=== PATIENT | male | born 1965 | race Caucasian/White ===

== ENCOUNTER 2020-10-05 11:35 | Inpatient (IN) | payer OTHER ==
[2020-10-05] MEDS ORDERED: SODIUM CHLORIDE 0.9% 1,000 ML with MVI, ADULT NO.4 WITH VIT K 10 ML, THIAMINE 100 MG, F... IV ONE ×4 (11:55)
--- NOTE | 2020-10-05 12:14 | XR ---
EXAMINATION TYPE: XR chest 2V DATE OF EXAM: 10/05/2020 COMPARISON: NONE TECHNIQUE: PA and lateral views submitted. HISTORY: Weakness FINDINGS: The lungs are clear and there is no pneumothorax, pleural effusion, or focal pneumonia. Arthropathy of the shoulders. Hyperinflation suggests COPD. No overt failure. Heart size normal. IMPRESSION: 1. No acute process. Correlate for COPD.
[2020-10-05 12:39] LABS: ALT 173 U/L (4-49); AST 483 U/L (17-59); African American GFR (CKD) >90 (>60 ml/min/1.73 sqM); Albumin 3.6 g/dL (3.5-5.0); Alkaline Phosphatase 137 U/L (38-126); Anion Gap 12 mmol/L; Blood Urea Nitrogen 6 mg/dL (9-20); Calcium 7.9 mg/dL (8.4-10.2); Carbon Dioxide 25 mmol/L (22-30); Chloride 105 mmol/L (98-107); Creatine Kinase 234 U/L (55-170); Glucose 116 mg/dL (74-99); Magnesium 1.7 mg/dL (1.6-2.3); Non-African American GFR(CKD) >90 (>60 ml/min/1.73 sqM); Potassium 4.2 mmol/L (3.5-5.1); Sodium 142 mmol/L (137-145); Total Bilirubin 0.9 mg/dL (0.2-1.3)
[2020-10-05 12:53] LABS: Alcohol 338 mg/dL
[2020-10-05 12:55] LABS: HCT 46.9 % (39.0-53.0); HGB 16.4 gm/dL (13.0-17.5); MCH 35.3 pg (25.0-35.0); MCHC 34.9 g/dL (31.0-37.0); Macrocytosis Slight; Mean Platelet Volume 7.1; RBC 4.65 m/uL (4.30-5.90); WBC 4.9 k/uL (3.8-10.6)
[2020-10-05 13:02] LABS: Lipase 6047 U/L (23-300)
--- NOTE | 2020-10-05 13:10 | ED ---
Alcohol HPI - General Chief Complaint: Alcohol Stated Complaint: ETOH Time Seen by Provider: 10/05/20 11:35 Source: patient, EMS, RN notes reviewed Mode of arrival: EMS - History of Present Illness Initial Comments: This is a 55-year-old male history of alcoholism was brought in by EMS today because of not eating or drinking for past several days he has been consuming alcohol however. So her between 1 pint and 150 day. He denies any prior history of alcohol a gastritis jaundice or other problems. He has been keeping food down and it has nausea some vomiting. He's also some diarrhea. No fevers chills sweats cough or phlegm production no other modifying factors MD Complaint: alcohol intoxication - Related Data Home Medications Medication Instructions Recorded Confirmed LORazepam [Ativan] 1 mg PO BID PRN 10/05/20 10/05/20 Allergies Allergy/AdvReac Type Severity Reaction Status Date / Time No Known Allergies Allergy Verified 10/05/20 12:16 Review of Systems ROS Statement: Those systems with pertinent positive or pertinent negative responses have been documented in the HPI. ROS Other: All systems not noted in ROS Statement are negative. Past Medical History History of Any Multi-Drug Resistant Organisms: None Reported Past Surgical History: Joint Replacement, Orthopedic Surgery Past Psychological History: No Psychological Hx Reported Smoking Status: Second hand smoke exposure Past Alcohol Use History: Abuse, Heavy Past Drug Use History: Cocaine, Marijuana General Exam - General Exam Comments Initial Comments: This a well-developed well-nourished awake alert oriented times 3 male General appearance: alert, in no apparent distress Head exam: Present: atraumatic, normocephalic, normal inspection Eye exam: Present: normal appearance, PERRL, EOMI. Absent: scleral icterus, conjunctival injection, periorbital swelling ENT exam: Present: mucous membranes dry Neck exam: Present: normal inspection, full ROM. Absent: tenderness, me ningismus, lymphadenopathy Respiratory exam: Present: normal lung sounds bilaterally. Absent: respiratory distress, wheezes, rales, rhonchi, stridor Cardiovascular Exam: Present: normal rhythm, tachycardia, normal heart sounds. Absent: systolic murmur, diastolic murmur, rubs, gallop, clicks GI/Abdominal exam: Present: soft, normal bowel sounds. Absent: distended, tenderness, guarding, rebound, rigid Extremities exam: Present: normal inspection, full ROM, normal capillary refill. Absent: tenderness, pedal edema, joint swelling, calf tenderness Back exam: Present: normal inspection Neurological exam: Present: alert, oriented X3, CN II-XII intact Psychiatric exam: Present: normal affect, normal mood Skin exam: Present: warm, dry, intact, normal color. Absent: rash Course Vital Signs 10/05/20 10/05/20 11:40 13:48 Temperature 98.3 F Pulse Rate 110 H 112 H Respiratory 18 18 Rate Blood Pressure 139/103 126/92 O2 Sat by Pulse 100 95 Oximetry Medical Decision Making - Medical Decision Making I did discuss findings with patient and with Dr. Pelayo the patient does d emonstrate evidence of acute alcohol intoxication as well as pancreatitis dehydration. The elevated lactic acid is likely secondary to dehydration has no infectious processes identified. She'll be admitted. - Lab Data Result diagrams: 10/05/20 12:00 10/05/20 12:00 Lab Results 10/05/20 10/05/20 10/05/20 Range/Units 12:00 12:00 12:00 WBC 4.9 (3.8-10.6) k/uL RBC 4.65 (4.30-5.90) m/uL Hgb 16.4 (13.0-17.5) gm/dL Hct 46.9 (39.0-53.0) % MCV 101.0 H (80.0-100.0) fL MCH 35.3 H (25.0-35.0) pg MCHC 34.9 (31.0-37.0) g/dL RDW 14.0 (11.5-15.5) % Plt Count 73 L (150-450) k/uL MPV 7.1 Neutrophils % (Manual) 62 % Lymphocytes % (Manual) 23 % Monocytes % (Manual) 15 % Neutrophils # (Manual) 3.04 (1.3-7.7) k/uL Lymphocytes # (Manual) 1.13 (1.0-4.8) k/uL Monocytes # (Manual) 0.74 (0-1.0) k/uL Nucleated RBCs 0 (0-0) /100 WBC Manual Slide Review Performed RBC Morphology Normal Macrocytosis Slight Sodium 142 (137-145) mmol/L Potassium 4.2 (3.5-5.1) mmol/L Chloride 105 (98-107) mmol/L Carbon Dioxide 25 (22-30) mmol/L Anion Gap 12 mmol/L BUN 6 L (9-20) mg/dL Creatinine 0.88 (0.66-1.25) mg/dL Est GFR (CKD-EPI)AfAm >90 (>60 ml/min/1.73 sqM) Est GFR (CKD-EPI)NonAf >90 (>60 ml/min/1.73 sqM) Glucose 116 H (74-99) mg/dL Plasma Lactic Acid Nawaf 3.0 H* (0.7-2.0) mmol/L Calcium 7.9 L (8.4-10.2) mg/dL Magnesium 1.7 (1.6-2.3) mg/dL Total Bilirubin 0.9 (0.2-1.3) mg/dL AST 483 H (17-59) U/L ALT 173 H (4-49) U/L Alkaline Phosphatase 137 H (38-126) U/L Ammonia <9 (<30) umol/L Creatine Kinase 234 H (55-170) U/L Total Protein 7.0 (6.3-8.2) g/dL Albumin 3.6 (3.5-5.0) g/dL Lipase 6047 H (23-300) U/L Serum Alcohol 338 H* mg/dL - EKG Data -: EKG Interpreted by Me EKG shows normal: sinus rhythm EKG Comments: Sinus tachycardia rate of 116. We'll 142 QRS duration 80 QT since QTC 348/483 - Radiology Data Radiology results: report reviewed (Imaging unremarkable), image reviewed Disposition Clinical Impression: Alcoholic intoxication, Acute pancreatitis, Dehydration, Tachycardia Disposition: ADMITTED IP TO THIS [facility] Condition: Fair Referrals: None,Stated [Primary Care Provider] - 1-2 days
[2020-10-05 13:18] LABS: Lymphocytes # (M) 1.13 k/uL (1.0-4.8); Monocytes # (M) 0.74 k/uL (0-1.0); Neutrophils # (M) 3.04 k/uL (1.3-7.7); Neutrophils % (M) 62 %; Nucleated Red Blood Cells 0 /100 WBC (0-0); Total Cells Counted 100
[2020-10-05 13:22] LABS: Platelet Count 73 k/uL (150-450)
[2020-10-05] MEDS ORDERED: ONDANSETRON 4 MG/2 ML VIAL IVP PRN ×2 (14:19→21:27)
[2020-10-05] MEDS ORDERED: NALOXONE 0.4 MG/ML 1 ML VIAL IV PRN (14:19)
[2020-10-05] MEDS ORDERED: SODIUM CHLORIDE 0.9% 1,000 ML IV STA (14:21)
[2020-10-05] MEDS ORDERED: LORazepam 2 MG/ML INJ IV PRN (14:21)
[2020-10-05] MEDS ORDERED: THIAMINE 100 MG/ML 2 ML VIAL IM STA (14:21)
[2020-10-05] MEDS: LORazepam 2 MG/ML INJ IV PRN ×4 (14:37→23:21)
[2020-10-05] MEDS: SODIUM CHLORIDE 0.9% 1,000 ML IV SCH (17:39)
[2020-10-05] MEDS: THIAMINE 100 MG TAB PO SCH (21:41)
--- NOTE | 2020-10-06 00:08 | P.HPIM ---
History of Present Illness H&P Date: 10/05/20 Chief Complaint: Acute alcohol intoxication Patient is a 55-year-old male with a known history of heavy alcohol abuse on daily basis, cocaine, marijuana use was brought to ER by EMS as he is not eating for the past several days and drinking alcohol on daily basis. Patient does drink 1 pint daily. Patient has been having nausea and few episodes of vomiting. Patient did have abdominal pain. No cough or sputum production. No fever no chills. Patient could not provide much history as the patient is intoxicated currently. Chest x-ray showed no acute process. Correlate for COPD. EKG showed sinus tachycardia. Laboratory data showed WBC 4.9, hemoglobin 16.4 MCV 101.0, platelets 73 Lactic acid 3.0, magnesium 1.7 calcium 7.9 AST 483 ALT 173 and alk phos 137 and lipase level is 6047 Serum alcohol level is 338 Review of Systems Complete review of systems could not be obtained from the patient. Currently he is intoxicated. Past Medical History History of Any Multi-Drug Resistant Organisms: None Reported Past Surgical History: Joint Replacement, Orthopedic Surgery Past Psychological History: No Psychological Hx Reported Smoking Status: Second hand smoke exposure Past Alcohol Use History: Abuse, Heavy Past Drug Use History: Cocaine, Marijuana Medications and Allergies Home Medications Medication Instructions Recorded Confirmed Type LORazepam [Ativan] 1 mg PO BID PRN 10/05/20 10/05/20 History Allergies Allergy/AdvReac Type Severity Reaction Status Date / Time No Known Allergies Allergy Verified 10/05/20 12:16 Physical Exam Vitals: Vital Signs Temp Pulse Resp BP Pulse Ox 10/05/20 14:30 94 16 135/98 96 10/05/20 14:00 18 126/92 97 10/05/20 13:51 99 18 126/92 94 L 10/05/20 13:48 112 H 18 126/92 95 10/05/20 11:40 98.3 F 110 H 18 139/103 100 Intake and Output 10/04/20 10/05/20 10/05/20 22:59 06:59 14:59 Other: Weight 74.843 kg PHYSICAL EXAMINATION: Patient is lying in the bed comfortably, no acute distress,.Patient is drowsy and lethargic.. HEENT: Normocephalic. Neck is supple. Pupils reactive. Nostrils clear. Oral cavity is moist. Ears reveal no drainage. Neck reveals no JVD, carotid bruits, or thyromegaly. CHEST EXAMINATION: Trachea is central. Symmetrical expansion. Lung carrillo clear to auscultation and percussion. CARDIAC: Normal S1, S2 with no gallops. No murmurs ABDOMEN: Soft. Bowel sounds normal. No organomegaly. No abdominal bruits. Extremities: reveal no edema. No clubbing or cyanosis Neurologically Patient is drowsy and lethargic.. No focal deficits noted Skin: No rash or skin lesions. Psychiatric: Coperative. Musculoskeletal: No joint swelling or deformity. Normal range of motion. Results CBC & Chem 7: 10/05/20 12:00 10/05/20 12:00 Labs: Abnormal Lab Results - Last 24 Hours (Table) 10/05/20 10/05/20 10/05/20 Range/Units 12:00 12:00 12:00 MCV 101.0 H (80.0-100.0) fL MCH 35.3 H (25.0-35.0) pg Plt Count 73 L (150-450) k/uL BUN 6 L (9-20) mg/dL Glucose 116 H (74-99) mg/dL Plasma Lactic Acid Nawaf 3.0 H* (0.7-2.0) mmol/L Calcium 7.9 L (8.4-10.2) mg/dL AST 483 H (17-59) U/L ALT 173 H (4-49) U/L Alkaline Phosphatase 137 H (38-126) U/L Creatine Kinase 234 H (55-170) U/L Lipase 6047 H (23-300) U/L Serum Alcohol 338 H* mg/dL Thrombosis Risk Factor Assmnt - DVT/VTE Prophylaxis DVT/VTE Prophylaxis: Pharmacologic Prophylaxis ordered Assessment and Plan Assessment: Acute alcohol intoxication with a level 338 Severe alcohol abuse Lactic acidosis secondary to dehydration and volume depletion Acute alcoholic hepatitis with elevated liver enzymes AST greater than ALT Acute pancreatitis with lipase level 6047 Macrocytosis and thrombocytopenia secondary to alcohol abuse Marijuana use and cocaine use DVT prophylaxis and GI prophylaxis. Plan: Patient will be continued on IV hydration with normal saline and nothing by mouth until abdominal pain improves.. Continue with pain management and GI and DVT prophylaxis. Further recommendations based on the clinical course. Continue with alcohol withdrawal protocol. Time with Patient: Greater than 30
[2020-10-06] MEDS: HEPARIN SODIUM,PORCINE 5,000 UNIT/ML 1 ML VIAL SQ SCH ×3 (01:14→16:47)
[2020-10-06] MEDS: SODIUM CHLORIDE 0.9% 1,000 ML IV SCH ×4 (01:14→19:37)
[2020-10-06 01:36] LABS: Amphetamine Screen,Urine Not Detected (NotDetected); Barbiturate Screen,Urine Not Detected (NotDetected); Benzodiazepines Screen,Urine Detected (NotDetected); Cocaine Screen,Urine Not Detected (NotDetected); Methadone Screen, Urine Not Detected (NotDetected); Opiate Screen,Urine Not Detected (NotDetected); Oxycodone Screen, Urine Not Detected (NotDetected); Phencyclidine Screen,Urine Not Detected (NotDetected); Tricyclic Antidepressant,Urine Not Detected (NotDetected); Urn Cannabinoid Scrn Not Detected (NotDetected)
[2020-10-06] MEDS: LORazepam 2 MG/ML INJ IV PRN ×9 (02:12→21:48)
[2020-10-06 02:30] LABS: HCT 41.3 % (39.0-53.0); HGB 14.3 gm/dL (13.0-17.5); MCH 35.4 pg (25.0-35.0); MCHC 34.7 g/dL (31.0-37.0); MCV 102.1 fL (80.0-100.0); Macrocytosis Slight; Mean Platelet Volume 7.6; RBC 4.05 m/uL (4.30-5.90); RDW 14.1 % (11.5-15.5); WBC 2.7 k/uL (3.8-10.6)
[2020-10-06 02:40] LABS: Platelet Count 49 k/uL (150-450)
[2020-10-06 02:43] LABS: ALT 143 U/L (4-49); AST 335 U/L (17-59); African American GFR (CKD) >90 (>60 ml/min/1.73 sqM); Albumin 3.1 g/dL (3.5-5.0); Alkaline Phosphatase 111 U/L (38-126); Anion Gap 4 mmol/L; Blood Urea Nitrogen 5 mg/dL (9-20); Calcium 8.1 mg/dL (8.4-10.2); Carbon Dioxide 29 mmol/L (22-30); Chloride 104 mmol/L (98-107); Glucose 79 mg/dL (74-99); Lipase 1344 U/L (23-300); Non-African American GFR(CKD) >90 (>60 ml/min/1.73 sqM); Potassium 4.1 mmol/L (3.5-5.1); Sodium 137 mmol/L (137-145); Total Bilirubin 1.6 mg/dL (0.2-1.3); Total Protein 6.1 g/dL (6.3-8.2)
[2020-10-06 03:16] LABS: Band Neutrophils % 1 %; Basophils # (M) 0.03 k/uL (0-0.2); Lymphocytes # (M) 0.46 k/uL (1.0-4.8); Monocytes # (M) 0.24 k/uL (0-1.0); Neutrophils % (M) 72 %; Nucleated Red Blood Cells 0 /100 WBC (0-0); Total Cells Counted 100
[2020-10-06] MEDS: THIAMINE 100 MG TAB PO SCH ×2 (07:22→16:47)
[2020-10-06] MEDS: PANTOPRAZOLE 40 MG/10 ML VIAL IV SCH (07:22)
[2020-10-06 15:36] VITALS: BMI 22.4
[2020-10-06] MEDS ORDERED: LORazepam 2 MG/ML INJ IV STA (23:04)
[2020-10-06 23:21] LABS: HCT 34.4 % (39.0-53.0); MCH 37.7 pg (25.0-35.0); MCHC 34.8 g/dL (31.0-37.0); Macrocytosis Marked; Mean Platelet Volume 13.4; RBC 3.17 m/uL (4.30-5.90); RDW 14.5 % (11.5-15.5); WBC 2.8 k/uL (3.8-10.6)
[2020-10-06 23:26] LABS: MCV 108.4 fL (80.0-100.0)
[2020-10-06 23:46] LABS: INR 1.2 (<1.2); Prothrombin Time 12.8 sec (9.0-12.0)
[2020-10-06 23:49] LABS: Band Neutrophils % 1 %; Monocytes # (M) 0.17 k/uL (0-1.0); Neutrophils % (M) 75 %; Nucleated Red Blood Cells 0 /100 WBC (0-0); Total Cells Counted 100
[2020-10-06 23:57] LABS: Glucose,Whole Blood 101 mg/dL (75-99)
--- NOTE | 2020-10-06 23:58 | CT ---
EXAMINATION TYPE: CT brain without contrast DATE OF EXAM: 10/06/2020 COMPARISON: None HISTORY: Fall. Pain. Altered mental status CT DLP: mGycm Automated exposure control for dose reduction was used. Images were obtained without contrast. There is some cerebral cortical atrophy. There is no mass effect nor midline shift. There is no sign of intracranial hemorrhage. The calvarium is intact. There is normal aeration of the mastoid sinuses. Skull base is intact. IMPRESSION: Cerebral atrophy. No acute intracranial abnormality.
--- NOTE | 2020-10-07 00:03 | P.EN ---
A team note Activated at 10:37 PM. Arrived in the scene shortly after. The patient was laying on the ground. Discussed the case with RN at the bedside and reviewed the chart. The patient was admitted to the medicine service for EtOH withdrawal and pancreatitis. He had reportedly gotten up out of the bed, unwitnessed, and had walked to the restroom where he had a large tarry black bowel movement. The patient notes that he then felt dizzy as he tried to walk back to his bed and fell onto his side. Denied head trauma. Denied loss of consciousness. The patient's vital signs upon examination were: BP 82/51, pulse 154, and SpO2 98% on room air. The patient noted feeling shaky with nausea though denied additional complaints. The patient's toilet bowl was filled with black tarry stools. Patient denied episodes of vomiting. Reported a previous history of GI bleeding though could not recall if he was diagnosed with varices. EKG at the bedside revealed sinus tachycardia. General: Tremulous male, in no acute distress, appears stated age, normal weight HEENT: NC/AT, anicteric sclerae, moist conjunctiva, no lid-lag, PERRLA Cardiovascular: Tachycardic, no murmurs, rubs, or gallops Lungs: Clear to auscultation, normal respiratory effort, no accessory muscle use Abdominal: Soft, non-tender, non-distended, hepatomegaly noted, no guarding, rebound, or rigidity Skin: Warm, dry Extremities: No edema or contractures Psychiatric: Alert and oriented to person, place and time, appropriate affect Neuro: CN II-XII grossly intact, no focal neuro deficits noted, tongue fasciculations and outstretched hand tremor Assessment/plan Fall, suspected orthostatic in setting of acute GI bleeding -Status post 1 L normal saline bolus at the bedside. Continue with IV fluid hydration -Blood work ordered -Stat GI consult -Strict bedrest with fall precautions -Cardiac monitoring -CT brain ordered -Transfer patient to medical ICU -Primary team notified, agreed with transfer to ICU -Continue with Protonix IV -Sinus tachycardia suspected secondary to EtOH withdrawal and acute GI bleeding
[2020-10-07 00:05] LABS: ALT 98 U/L (4-49); AST 146 U/L (17-59); African American GFR (CKD) 74 (>60 ml/min/1.73 sqM); Albumin 2.6 g/dL (3.5-5.0); Alkaline Phosphatase 82 U/L (38-126); Anion Gap 11 mmol/L; Blood Urea Nitrogen 30 mg/dL (9-20); Calcium 8.2 mg/dL (8.4-10.2); Carbon Dioxide 20 mmol/L (22-30); Chloride 106 mmol/L (98-107); Globulin 2.7 g/dL; Glucose 121 mg/dL (74-99); Magnesium 1.3 mg/dL (1.6-2.3); Non-African American GFR(CKD) 64 (>60 ml/min/1.73 sqM); Potassium 4.2 mmol/L (3.5-5.1); Sodium 137 mmol/L (137-145); Total Bilirubin 1.9 mg/dL (0.2-1.3); Total Protein 5.3 g/dL (6.3-8.2)
[2020-10-07] MEDS: LORazepam 2 MG/ML INJ IV PRN ×8 (00:13→20:33)
[2020-10-07] MEDS: MAGNESIUM SULFATE-D5W PMX 1 GM in DEXTROSE/WATER 1 100ML.BAG IVPB SCH ×3 (01:21→03:43)
[2020-10-07 05:09] LABS: HCT 31.6 % (39.0-53.0); MCH 35.9 pg (25.0-35.0); MCHC 34.9 g/dL (31.0-37.0); Macrocytosis Slight; Mean Platelet Volume 8.2; RBC 3.07 m/uL (4.30-5.90); RDW 13.9 % (11.5-15.5); WBC 4.6 k/uL (3.8-10.6)
[2020-10-07 05:18] LABS: African American GFR (CKD) >90 (>60 ml/min/1.73 sqM); Anion Gap 5 mmol/L; Blood Urea Nitrogen 31 mg/dL (9-20); Carbon Dioxide 22 mmol/L (22-30); Chloride 109 mmol/L (98-107); Glucose 87 mg/dL (74-99); Non-African American GFR(CKD) >90 (>60 ml/min/1.73 sqM); Potassium 4.4 mmol/L (3.5-5.1); Sodium 136 mmol/L (137-145)
[2020-10-07 05:19] LABS: MCV 102.8 fL (80.0-100.0); Platelet Count 79 k/uL (150-450)
[2020-10-07 06:24] LABS: Lymphocytes # (M) 0.83 k/uL (1.0-4.8); Monocytes # (M) 0.92 k/uL (0-1.0); Neutrophils # (M) 2.85 k/uL (1.3-7.7); Neutrophils % (M) 62 %; Nucleated Red Blood Cells 0 /100 WBC (0-0); Total Cells Counted 100
[2020-10-07] MEDS: SODIUM CHLORIDE 0.9% 1,000 ML IV SCH (07:04)
--- NOTE | 2020-10-07 07:22 | CT ---
EXAMINATION TYPE: CT abdomen pelvis wo con DATE OF EXAM: 10/06/2020 COMPARISON: None HISTORY: found on floor after fall. Pain. AMS. no prior on PACS. CT DLP: 639.6 mGycm Automated exposure control for dose reduction was used. TECHNIQUE: Helical acquisition of images from the lung bases through the pelvis. FINDINGS: Lack of intravenous contrast could compromise sensitivity. LUNG BASES: No significant abnormality is appreciated. AORTA: No significant abnormality is appreciated. LIVER/GB: Liver shows low attenuation, is enlarged. Gallbladder is normal. PANCREAS: No significant abnormality is seen. SPLEEN: No significant abnormality is seen. ADRENALS: No significant abnormality is seen. KIDNEYS: Right kidney is atrophic. Left kidney is enlarged. REPRODUCTIVE ORGANS: No significant abnormality is seen. URINARY BLADDER: No significant abnormality is seen. BOWEL: No significant abnormality is seen. FREE AIR: No Free Air is visible. ASCITES: None visible. PELVIC ADENOPATHY: None visualized. RETROPERITONEAL ADENOPATHY: No Retroperitoneal Adenopathy visible. OSSEOUS STRUCTURES: Bilateral spondylolysis at L5 with anterolisthesis L5-S1. Loss of disc height L4 -5 and L5-S1, is associated vacuum phenomenon. Multilevel spondylosis is present.. IMPRESSION: NO ACUTE ABNORMALITY. NONCONTRAST EXAM. HEPATOMEGALY, HEPATIC STEATOSIS. ATROPHIC RIGHT KIDNEY WITH C OMPENSATORY HYPERTROPHY LEFT KIDNEY.
[2020-10-07] MEDS: THIAMINE 100 MG TAB PO SCH ×2 (08:11→19:40)
[2020-10-07] MEDS: PANTOPRAZOLE 40 MG/10 ML VIAL IV SCH (08:11)
[2020-10-07] MEDS ORDERED: SODIUM CHLORIDE 0.9% 1,000 ML with MVI, ADULT NO.4 WITH VIT K 10 ML, THIAMINE 100 MG, F... IV ONE ×4 (08:25)
[2020-10-07] MEDS ORDERED: DEXTROSE 5%-0.9% NACL 1,000 ML IV SCH (08:30)
--- NOTE | 2020-10-07 09:57 | P.PN ---
Subjective Progress Note Date: 10/06/20 Principal diagnosis: Acute alcohol intoxication Acute pancreatitis Patient is a 55-year-old male with a known history of heavy alcohol abuse on daily basis, cocaine, marijuana use was brought to ER by EMS as he is not eating for the past several days and drinking alcohol on daily basis. Patient does drink 1 pint daily. Patient has been having nausea and few episodes of vomi ting. Patient did have abdominal pain. No cough or sputum production. No fever no chills. Patient could not provide much history as the patient is intoxicated currently. Chest x-ray showed no acute process. Correlate for COPD. EKG showed sinus tachycardia. Laboratory data showed WBC 4.9, hemoglobin 16.4 MCV 101.0, platelets 73 Lactic acid 3.0, magnesium 1.7 calcium 7.9 AST 483 ALT 173 and alk phos 137 and lipase level is 6047 Serum alcohol level is 338 10/06/2020 Patient is currently resting in the bed comfortably. Abdominal pain is better. Tolerating liquid diet. Living and subtending down. Otherwise patient is still shaky and requiring alcohol withdrawal protocol. Continue with multivitamins and thiamine and advance diet as tolerated. Patient denied any complains of chest pain. No nausea vomiting or diarrhea. No dysuria or hematuria. Patient has been afebrile. current medications reviewed. Objective - Vital Signs Vital signs: Vital Signs Temp 97.6 F 10/06/20 14:00 Pulse 106 H 10/06/20 14:00 Resp 16 10/06/20 14:00 BP 140/90 10/06/20 14:00 Pulse Ox 98 10/06/20 14:00 Intake & Output 10/05/20 10/06/20 10/06/20 18:59 06:59 18:59 Weight 74.843 kg 74.843 kg 74.843 kg Other: # Voids 3 - Exam PHYSICAL EXAMINATION: Patient is lying in the bed comfortably, no acute distress, awake alert and oriented. Drowsy.. HEENT: Normocephalic. Neck is supple. Pupils reactive. Nostrils clear. Oral cavity is moist. Ears reveal no drainage. Neck reveals no JVD, carotid bruits, or thyromegaly. CHEST EXAMINATION: Trachea is central. Symmetrical expansion. Lung carrillo clear to auscultation and percussion. CARDIAC: Normal S1, S2 with no gallops. No murmurs ABDOMEN: Soft. Mild epigastric tenderness. Bowel sounds normal. No organomeg jenise. No abdominal bruits. Extremities: reveal no edema. No clubbing or cyanosis Neurologically awake, alert, oriented x3 with well-coordinated movements. No focal deficits noted Skin: No rash or skin lesions. Psychiatric: Coperative. Nonsuicidal Musculoskeletal: No joint swelling or deformity. Normal range of motion. - Labs CBC & Chem 7: 10/07/20 04:33 10/07/20 04:33 Labs: Abnormal Lab Results - Last 24 Hours (Table) 10/05/20 10/05/20 10/05/20 Range/Units 17:34 20:39 23:08 WBC (3.8-10.6) k/uL RBC (4.30-5.90) m/uL MCV (80.0-100.0) fL MCH (25.0-35.0) pg Plt Count (150-450) k/uL Lymphocytes # (Manual) (1.0-4.8) k/uL BUN (9-20) mg/dL Plasma Lactic Acid Nawaf 4.2 H* 2.2 H* 3.0 H* (0.7-2.0) mmol/L Calcium (8.4-10.2) mg/dL Total Bilirubin (0.2-1.3) mg/dL AST (17-59) U/L ALT (4-49) U/L Total Protein (6.3-8.2) g/dL Albumin (3.5-5.0) g/dL Lipase (23-300) U/L U Benzodiazepines Scrn (NotDetected) 10/06/20 10/06/20 10/06/20 Range/Units 01:23 02:10 02:10 WBC 2.7 L (3.8-10.6) k/uL RBC 4.05 L (4.30-5.90) m/uL MCV 102.1 H (80.0-100.0) fL MCH 35.4 H (25.0-35.0) pg Plt Count 49 L (150-450) k/uL Lymphocytes # (Manual) 0.46 L (1.0-4.8) k/uL BUN 5 L (9-20) mg/dL Plasma Lactic Acid Nawaf (0.7-2.0) mmol/L Calcium 8.1 L (8.4-10.2) mg/dL Total Bilirubin 1.6 H (0.2-1.3) mg/dL AST 335 H (17-59) U/L ALT 143 H (4-49) U/L Total Protein 6.1 L (6.3-8.2) g/dL Albumin 3.1 L (3.5-5.0) g/dL Lipase 1344 H (23-300) U/L U Benzodiazepines Scrn Detected H (NotDetected) Assessment and Plan Assessment: Acute alcohol intoxication with a level 338 Acute alcohol withdrawal symptoms Severe alcohol abuse Lactic acidosis secondary to dehydration and volume depletion Acute alcoholic hepatitis with elevated liver enzymes AST greater than ALT Acute pancreatitis with lipase level 6047 Macrocytosis and thrombocytopenia secondary to alcohol abuse Marijuana use and cocaine use DVT prophylaxis and GI prophylaxis. Plan: Patient will be continued on IV hydration with normal saline and advance diet as tolerated.. Continue with pain management and GI and DVT prophylaxis. Further recommendations based on the clinical course. Continue with alcohol withdrawal protocol. Time with Patient: Greater than 30
[2020-10-07] MEDS: 1: MVI, ADULT NO.4 WITH VIT K 10 ML, THIAMINE 100 MG, FOLIC ACID 1 MG in SODIUM CHLORIDE IV SCH ×2 (10:20→20:30)
--- NOTE | 2020-10-07 12:22 | P.CNPUL ---
History of Present Illness Consult date: 10/07/20 Requesting physician: Mica Richardson Reason for consult: other Chief complaint: Dehydration, pancreatitis, alcohol withdrawal syndrome. History of present illness: 55-year-old male, heavy alcohol abuser, who presented to the emergency room, via EMS, on October 05. He apparently had not been eating or drinking very much at all. He does continue to consume 1 pint of 5 Or whiskey a day. 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 He was admitted to the general medical floor on the , and on the , he came to the ICU. He apparently fell, trying to get out of bed, and was noted to have a low blood pressure, and possible gastrointestinal bleed. Currently, he's not receiving any supplemental oxygen. He is getting saline at 130 mL an hour. He did not require any pressors such as norepinephrine. The patient will be given fluids in the form of D5 0.9, with thiamine. Quite shaky. He does understand what he is going to. His only home medication with Ativan and he has no ALLERGIES. He apparently has no major medical problems. He has used cocaine and marijuana in the past, and apparently is a heavy drinker as mentioned above. He currently does not smoke cigarettes. Review of Systems REVIEW OF SYSTEMS: CONSTITUTIONAL: Weak, shaky.] NEUROLOGIC: Tremors.] HEENT: [ Negative.] CARDIAC: Hypotension. PULMONARY: [Negative.] GI: GI bleed. : [Negative.] RHEUMATOLOGIC: [ Negative.] IMMUNOLOGIC: [ Negative.] ENDOCRINE: [Negative. ] DERMATOLOGIC: [Negative.] Past Medical History Past Medical History: Seizure Disorder History of Any Multi-Drug Resistant Organisms: None Reported Past Surgical History: Joint Replacement, Orthopedic Surgery Past Anesthesia/Blood Transfusion Reactions: No Reported Reaction Past Psychological History: No Psychological Hx Reported Smoking Status: Second hand smoke exposure Past Alcohol Use History: Abuse, Heavy Past Drug Use History: Cocaine, Marijuana Medications and Allergies Home Medications Medication Instructions Recorded Confirmed Type LORazepam [Ativan] 1 mg PO BID PRN 10/05/20 10/05/20 History Allergies Allergy/AdvReac Type Severity Reaction Status Date / Time No Known Allergies Allergy Verified 10/05/20 12:16 Physical Exam Osteopathic Statement: *. No significant issues noted on an osteopathic structural exam other than those noted in the History and Physical/Consult. Vitals: Vital Signs Temp Pulse Pulse Resp BP BP Pulse Ox 10/07/20 10:30 144 H 18 121/92 95 10/07/20 10:00 140 H 27 H 99/70 93 L 10/07/20 09:30 129 H 22 107/78 97 10/07/20 09:00 135 H 23 111/91 96 10/07/20 08:30 142 H 25 H 105/84 99 10/07/20 08:00 98.3 F 135 H 154 H 18 93/83 96 10/07/20 07:30 138 H 18 85/60 10/07/20 07:00 128 H 26 H 113/77 97 10/07/20 06:30 134 H 20 118/79 95 10/07/20 06:00 16 110/88 97 10/07/20 05:30 147 H 24 86/71 99 10/07/20 05:00 135 H 22 92/67 99 10/07/20 04:30 141 H 22 128/110 98 10/07/20 04:00 98 F 163 H 26 H 93/65 100 10/07/20 03:30 112 H 20 142/56 97 10/07/20 03:00 144 H 17 113/80 100 10/07/20 02:30 27 H 92/66 97 10/07/20 02:00 147 H 24 88/65 95 10/07/20 01:30 152 H 30 H 107/92 95 10/07/20 01:00 144 H 24 94/60 95 10/07/20 00:30 146 H 13 96/63 92 L 10/07/20 00:00 98.8 F 149 H 27 H 117/78 95 10/06/20 23:02 154 H 82/51 98 10/06/20 22:53 156 H 76/52 97 10/06/20 19:15 18 10/06/20 18:53 98.5 F 105 H 18 111/80 98 10/06/20 14:00 97.6 F 106 H 16 140/90 98 Intake and Output 10/06/20 10/07/20 10/07/20 22:59 06:59 14:59 Intake Total 2660 520 Balance 2660 520 Intake: IV 2000 0.9 bolus 2000 Intake, IV Titration 660 520 Amount Dextrose 5%-0.9% NaCl 1, 130 000 ml @ 130 mls/hr IV . Q7H42M [facility] Rx#:[id number] Magnesium Sulfate-D5w Pmx 300 1 gm In Dextrose/Water 1 100ml.bag @ 100 mls/hr IVPB Q1H [facility] Rx#: [id number] Mvi, Adult No.4 with Vit 130 K 10 ml Thiamine 100 mg Folic Acid 1 mg In Sodium Chloride 0.9% 1,000 ml @ 130 mls/hr IV .BY DURATION [facility] Rx#: [id number] Sodium Chloride 0.9% 1, 360 260 000 ml @ 130 mls/hr IV . Q7H42M [facility] Rx#:[id number] Other: Voiding Method Toilet Urinal Urinal Diaper Diaper # Voids 5 1 1 # Bowel Movements 1 1 Weight 74.843 kg 77.1 kg No acute distress, oriented 3. The patient appears quite anxious. HEENT examination is grossly unremarkable. Mucous membranes are moist. No oral lesions. Neck supple. Full range of motion. No adenopathy thyromegaly or neck vein distention. Cardiovascular examination reveals regular rhythm rate. S1-S2 normal. No S3 or S4. No discernible murmur noted. Heart rate is 144 bpm. Lungs reveal clear breath sounds. Her sounds are equal bilaterally. No adventitious lung sounds including wheezes rhonchi or crackles. Abdomen soft bowel sounds are heard. No masses or tenderness. Extremities are intact. No cyanosis clubbing or edema. Skin is without rash or lesion. Neurologic examination is brief but nonfocal. A slight tremor is noted. Results - Laboratory Findings CBC and BMP: 10/07/20 04:33 10/07/20 04:33 PT/INR, D-dimer PT 12.8 sec (9.0-12.0) H 10/06/20 23:30 INR 1.2 (<1.2) H 10/06/20 23:30 Abnormal lab findings: Abnormal Labs 10/05/20 10/05/20 10/05/20 12:00 12:00 12:00 WBC RBC Hgb Hct MCV 101.0 H MCH 35.3 H Plt Count 73 L Lymphocytes # (Manual) Macrocytosis PT INR Sodium Chloride Carbon Dioxide BUN 6 L Creatinine Glucose 116 H POC Glucose (mg/dL) Plasma Lactic Acid Nawaf 3.0 H* Calcium 7.9 L Magnesium Total Bilirubin AST 483 H ALT 173 H Alkaline Phosphatase 137 H Creatine Kinase 234 H Total Protein Albumin Lipase 6047 H U Benzodiazepines Scrn Serum Alcohol 338 H* 10/05/20 10/05/20 10/05/20 15:00 17:34 20:39 WBC RBC Hgb Hct MCV MCH Plt Count Lymphocytes # (Manual) Macrocytosis PT INR Sodium Chloride Carbon Dioxide BUN Creatinine Glucose POC Glucose (mg/dL) Plasma Lactic Acid Nawaf 2.8 H* 4.2 H* 2.2 H* Calcium Magnesium Total Bilirubin AST ALT Alkaline Phosphatase Creatine Kinase Total Protein Albumin Lipase U Benzodiazepines Scrn Serum Alcohol 10/05/20 10/06/20 10/06/20 23:08 01:23 02:10 WBC 2.7 L RBC 4.05 L Hgb Hct MCV 102.1 H MCH 35.4 H Plt Count 49 L Lymphocytes # (Manual) 0.46 L Macrocytosis PT INR Sodium Chloride Carbon Dioxide BUN Creatinine Glucose POC Glucose (mg/dL) Plasma Lactic Acid Nawaf 3.0 H* Calcium Magnesium Total Bilirubin AST ALT Alkaline Phosphatase Creatine Kinase Total Protein Albumin Lipase U Benzodiazepines Scrn Detected H Serum Alcohol 10/06/20 10/06/20 10/06/20 02:10 23:15 23:30 WBC 2.8 L RBC 3.17 L Hgb 12.0 L Hct 34.4 L MCV 108.4 H D MCH 37.7 H Plt Count Lymphocytes # (Manual) 0.50 L Macrocytosis Marked A PT 12.8 H INR 1.2 H Sodium Chloride Carbon Dioxide BUN 5 L Creatinine Glucose POC Glucose (mg/dL) Plasma Lactic Acid Nawaf Calcium 8.1 L Magnesium Total Bilirubin 1.6 H AST 335 H ALT 143 H Alkaline Phosphatase Creatine Kinase Total Protein 6.1 L Albumin 3.1 L Lipase 1344 H U Benzodiazepines Scrn Serum Alcohol 10/06/20 10/06/20 10/06/20 23:30 23:30 23:55 WBC RBC Hgb Hct MCV MCH Plt Count Lymphocytes # (Manual) Macrocytosis PT INR Sodium Chloride Carbon Dioxide 20 L BUN 30 H Creatinine 1.27 H Glucose 121 H POC Glucose (mg/dL) 101 H Plasma Lactic Acid Nawaf 2.2 H* Calcium 8.2 L Magnesium 1.3 L Total Bilirubin 1.9 H AST 146 H ALT 98 H Alkaline Phosphatase Creatine Kinase Total Protein 5.3 L Albumin 2.6 L Lipase U Benzodiazepines Scrn Serum Alcohol 10/07/20 10/07/20 04:33 04:33 WBC RBC 3.07 L Hgb 11.0 L Hct 31.6 L MCV 102.8 H D MCH 35.9 H Plt Count 79 L D Lymphocytes # (Manual) 0.83 L Macrocytosis PT INR Sodium 136 L Chloride 109 H Carbon Dioxide BUN 31 H Creatinine Glucose POC Glucose (mg/dL) Plasma Lactic Acid Nawaf Calcium 8.0 L Magnesium Total Bilirubin AST ALT Alkaline Phosphatase Creatine Kinase Total Protein Albumin Lipase U Benzodiazepines Scrn Serum Alcohol - Diagnostic Findings Chest x-ray: image reviewed Assessment and Plan Assessment: Alcohol withdrawal syndrome in a patient who has a history of alcohol abuse. Alcoholic pancreatitis. Possible GI bleed, secondary to alcoholic gastritis or esophagitis. Recent fall, with negative brain scan. Lactic acidosis, improved. Mild hyperbilirubinemia. Mild alcohol-induced coagulopathy. Prerenal azotemia. Chronic anemia. Thrombocytopenia, secondary to alcohol-induced bone marrow suppression. Hypotension, resolved, with IV fluids. Plan: Plan dated 10/07/2020. The patient's IV will be switched to D5.9 with thiamine, at 130 mL an hour. The patient will continue getting Ativan per [facility] protocol. The only other medication the patient is on his thiamine, Protonix, and Zofran. Some of those medications are only given as needed. Continue to keep him in the intensive care unit. We will continue to monitor his blood work and observe him to the episode of alcohol withdrawal. I suspect he will develop full-blown delirium tremens. Additional recommendations and suggestions are forthcoming. Prognosis is guarded. Time with Patient: Greater than 30
--- NOTE | 2020-10-07 13:47 | P.CONS ---
History of Present Illness - Reason for Consult Consult date: 10/07/20 GI bleed Requesting physician: Devyn Pelayo - Chief Complaint Decreased oral intake - History of Present Illness 55-year-old male with a history of heavy alcohol abuse, and polysubstance abuse who presented to the hospital due to decreased oral intake. The patient was found to have markedly elevated lipase on presentation and 6047 and has complained of some abdominal pain with associated nausea and vomiting. Currently reporting abdominal pain is improved. He was found to be intoxicated on presentation with a level of 338. Other laboratory evaluation significant for WBC 4.6, hemoglobin 11, platelet count 79,000, total bilirubin 1.9, pleasant phosphatase 82, AST 146 and ALT 98. Computed tomography scan was significant for hepatomegaly and steatosis. Patient was sent to the medical floor for treatment of acute pancreatitis and alcohol intoxication. During the night the patient was found on the floor. There are concerns that the patient had passed out and the patient was subsequently noted to have bright red blood per rectum. He was brought to the ICU where he is being managed. Since that time bowel movements have been maroon and dark in color. He is receiving treatment for alcohol withdrawal. He reports a remote history of gastrointestinal bleed and states he has required EGD and colonoscopy in the past while in [place] but is unclear about the details around these procedures. Review of Systems REVIEW OF SYSTEMS: CONSTITUTIONAL: Denies any fevers, chills, weight change or fatigue. CARDIOVASCULAR: Denies any chest pain, palpitations high or low blood pressures RESPIRATORY: Denies any shortness of breath, hemoptysis or cough. GENITOURINARY: No dysuria or hematuria. MUSCULOSKELETAL: No weakness reported. SKIN: Denies any new rashes or lesions, jaundice or pallor. PSYCHIATRIC: Denies any depression or anxiety, polysubstance abuse, alcohol abuse. NEUROLOGY: Denies headache, denies any new focal deficits. EARS/NOSE/THROAT: No recent hearing change, congestion, nasal discharge or sore throat. EYES: No pain in eyes, discharge or change in vision. GASTROINTESTINAL: As per HPI. Past Medical History Past Medical History: Seizure Disorder History of Any Multi-Drug Resistant Organisms: None Reported Past Surgical History: Joint Replacement, Orthopedic Surgery Past Anesthesia/Blood Transfusion Reactions: No Reported Reaction Past Psychological History: No Psychological Hx Reported Smoking Status: Second hand smoke exposure Past Alcohol Use History: Abuse, Heavy Past Drug Use History: Cocaine, Marijuana Additional History: Family history: Reviewed with the patient and noncontributory to current medical presentation. Medications and Allergies Home Medications Medication Instructions Recorded Confirmed Type LORazepam [Ativan] 1 mg PO BID PRN 10/05/20 10/05/20 History Allergies Allergy/AdvReac Type Severity Reaction Status Date / Time No Known Allergies Allergy Verified 10/05/20 12:16 Physical Exam Vitals: Vital Signs Temp Pulse Pulse Resp BP BP Pulse Ox 10/07/20 09:00 135 H 23 111/91 96 10/07/20 08:30 142 H 25 H 105/84 99 10/07/20 08:00 98.3 F 135 H 154 H 18 93/83 96 10/07/20 07:30 138 H 18 85/60 10/07/20 07:00 128 H 26 H 113/77 97 10/07/20 06:30 134 H 20 118/79 95 10/07/20 06:00 16 110/88 97 10/07/20 05:30 147 H 24 86/71 99 10/07/20 05:00 135 H 22 92/67 99 10/07/20 04:30 141 H 22 128/110 98 10/07/20 04:00 98 F 163 H 26 H 93/65 100 10/07/20 03:30 112 H 20 142/56 97 10/07/20 03:00 144 H 17 113/80 100 10/07/20 02:30 27 H 92/66 97 10/07/20 02:00 147 H 24 88/65 95 10/07/20 01:30 152 H 30 H 107/92 95 10/07/20 01:00 144 H 24 94/60 95 10/07/20 00:30 146 H 13 96/63 92 L 10/07/20 00:00 98.8 F 149 H 27 H 117/78 95 10/06/20 23:02 154 H 82/51 98 10/06/20 22:53 156 H 76/52 97 10/06/20 19:15 18 10/06/20 18:53 98.5 F 105 H 18 111/80 98 10/06/20 14:00 97.6 F 106 H 16 140/90 98 Intake and Output 01/15/21 01/16/21 01/16/21 22:59 06:59 14:59 Intake Total 2660 390 Balance 2660 390 Intake: IV 2000 0.9 bolus 2000 Intake, IV Titration 660 390 Amount Dextrose 5%-0.9% NaCl 1, 130 000 ml @ 130 mls/hr IV . Q7H42M [facility] Rx#:[id number] Magnesium Sulfate-D5w Pmx 300 1 gm In Dextrose/Water 1 100ml.bag @ 100 mls/hr IVPB Q1H [facility] Rx#: [id number] Sodium Chloride 0.9% 1, 360 260 000 ml @ 130 mls/hr IV . Q7H42M [facility] Rx#:[id number] Other: Voiding Method Toilet Urinal Urinal Diaper Diaper # Voids 5 1 1 # Bowel Movements 1 1 Weight 74.843 kg 77.1 kg On physical examination, patient appears comfortable in no apparent distress. HEAD: Normocephalic, atraumatic. EYES: No scleral icterus. No conjunctival injection. MOUTH: No lesions, tongue midline. NECK: Trachea midline, no gross abnormalities. CHEST: Clear to auscultation with no wheezing or rhonchi appreciated. HEART: Tachycardic with regular rhythm. ABDOMEN: Soft, nontender to palpation. Bowel sounds are positive. No organomegaly. No guarding or rigidity. EXTREMITIES: No pedal edema. SKIN: No rashes, no jaundice. NEUROLOGIC: Alert and oriented to person and place, tremulousness noted with no asterixis. No focal deficits. Results CBC & Chem 7: 10/07/20 04:33 10/07/20 04:33 Labs: Abnormal Lab Results - Last 24 Hours (Table) 10/06/20 10/06/20 10/06/20 Range/Units 23:15 23:30 23:30 WBC 2.8 L (3.8-10.6) k/uL RBC 3.17 L (4.30-5.90) m/uL Hgb 12.0 L (13.0-17.5) gm/dL Hct 34.4 L (39.0-53.0) % MCV 108.4 H D (80.0-100.0) fL MCH 37.7 H (25.0-35.0) pg Plt Count (150-450) k/uL Lymphocytes # (Manual) 0.50 L (1.0-4.8) k/uL Macrocytosis Marked A PT 12.8 H (9.0-12.0) sec INR 1.2 H (<1.2) Sodium (137-145) mmol/L Chloride (98-107) mmol/L Carbon Dioxide 20 L (22-30) mmol/L BUN 30 H (9-20) mg/dL Creatinine 1.27 H (0.66-1.25) mg/dL Glucose 121 H (74-99) mg/dL POC Glucose (mg/dL) (75-99) mg/dL Plasma Lactic Acid Nawaf (0.7-2.0) mmol/L Calcium 8.2 L (8.4-10.2) mg/dL Magnesium 1.3 L (1.6-2.3) mg/dL Total Bilirubin 1.9 H (0.2-1.3) mg/dL AST 146 H (17-59) U/L ALT 98 H (4-49) U/L Total Protein 5.3 L (6.3-8.2) g/dL Albumin 2.6 L (3.5-5.0) g/dL 10/06/20 10/06/20 10/07/20 Range/Units 23:30 23:55 04:33 WBC (3.8-10.6) k/uL RBC 3.07 L (4.30-5.90) m/uL Hgb 11.0 L (13.0-17.5) gm/dL Hct 31.6 L (39.0-53.0) % MCV 102.8 H D (80.0-100.0) fL MCH 35.9 H (25.0-35.0) pg Plt Count 79 L D (150-450) k/uL Lymphocytes # (Manual) 0.83 L (1.0-4.8) k/uL Macrocytosis PT (9.0-12.0) sec INR (<1.2) Sodium (137-145) mmol/L Chloride (98-107) mmol/L Carbon Dioxide (22-30) mmol/L BUN (9-20) mg/dL Creatinine (0.66-1.25) mg/dL Glucose (74-99) mg/dL POC Glucose (mg/dL) 101 H (75-99) mg/dL Plasma Lactic Acid Nawaf 2.2 H* (0.7-2.0) mmol/L Calcium (8.4-10.2) mg/dL Magnesium (1.6-2.3) mg/dL Total Bilirubin (0.2-1.3) mg/dL AST (17-59) U/L ALT (4-49) U/L Total Protein (6.3-8.2) g/dL Albumin (3.5-5.0) g/dL 10/07/20 Range/Units 04:33 WBC (3.8-10.6) k/uL RBC (4.30-5.90) m/uL Hgb (13.0-17.5) gm/dL Hct (39.0-53.0) % MCV (80.0-100.0) fL MCH (25.0-35.0) pg Plt Count (150-450) k/uL Lymphocytes # (Manual) (1.0-4.8) k/uL Macrocytosis PT (9.0-12.0) sec INR (<1.2) Sodium 136 L (137-145) mmol/L Chloride 109 H (98-107) mmol/L Carbon Dioxide (22-30) mmol/L BUN 31 H (9-20) mg/dL Creatinine (0.66-1.25) mg/dL Glucose (74-99) mg/dL POC Glucose (mg/dL) (75-99) mg/dL Plasma Lactic Acid Nawaf (0.7-2.0) mmol/L Calcium 8.0 L (8.4-10.2) mg/dL Magnesium (1.6-2.3) mg/dL Total Bilirubin (0.2-1.3) mg/dL AST (17-59) U/L ALT (4-49) U/L Total Protein (6.3-8.2) g/dL Albumin (3.5-5.0) g/dL CT scan - abdomen: report reviewed (Computed tomography scan of the abdomen with findings of hepatomegaly and steatosis) Assessment and Plan (1) GI bleed Narrative/Plan: 55-year-old male with a history of heavy alcohol abuse presenting for decreased oral intake. He reported decreased oral intake in association with some abdominal pain and nausea and vomiting. Found to have markedly elevated lipase of 6047 on presentation the patient was admitted for treatment of a cryptitis and alcohol withdrawal. On the medical floor the patient was found on the floor of his room and subsequently had bloody bowel movements. Initially bright red blood per rectum, subsequent bowel movements have been maroon and now darker in color. No hematemesis or coffee-ground emesis noted. Unclear etiology, patient likely has alcoholic liver disease and possible cirrhosis although symptoms are not suggestive of a variceal bleed, plan is for EGD to rule out peptic ulcer disease or other upper GI source of blood loss, may also be related to lower GI bleed from diverticula, AVM or other etiology. Current Visit: Yes Status: Acute Code(s): K92.2 - GASTROINTESTINAL HEMORRHAGE, UNSPECIFIED SNOMED Code(s): 50805811 (2) Elevated liver enzymes Narrative/Plan: Elevated liver enzymes in the setting of chronic heavy alcohol abuse, suspect a degree of underlying liver disease and probable cirrhosis given thrombocytopenia and elevation of liver enzymes. Computed tomography scan of the abdomen did show hepatomegaly and steatosis. Current Visit: Yes Status: Acute Code(s): R74.8 - ABNORMAL LEVELS OF OTHER SERUM ENZYMES SNOMED Code(s): 355407969 (3) Alcoholic liver disease Current Visit: Yes Status: Acute Code(s): K70.9 - ALCOHOLIC LIVER DISEASE, UNSPECIFIED SNOMED Code(s): 80852043 (4) Acute pancreatitis Current Visit: Yes Status: Acute Code(s): K85.90 - ACUTE PANCREATITIS WITHOUT NECROSIS OR INFECTION, UNSP SNOMED Code(s): 212474153 (5) Alcoholic intoxication Current Visit: Yes Status: Acute Code(s): F10.929 - ALCOHOL USE, UNSPECIFIED WITH INTOXICATION, UNSPECIFIED SNOMED Code(s): 75648314 Plan: Supportive care Nothing by mouth, if no further bleeding vision can be given some liquids and should be made nothing by mouth after midnight Plan for EGD tomorrow for further evaluation, patient is actively withdrawing from alcohol and given his hemodynamic stability and symptoms suggesting that he is no longer actively bleeding the case will be planned for tomorrow if clinical status changes we'll reevaluate at that time Continue to monitor hemoglobin and hematocrit and transfuse as needed Alcohol abstinence Continue to monitor for signs and symptoms all withdrawn treat ICU care Continue monitor CBC, BMP, LFTs Continue Protonix 40 mg IV twice a day Thank you for allowing us to participate in the care of the patient
[2020-10-08] MEDS: LORazepam 2 MG/ML INJ IV PRN ×6 (00:42→19:26)
[2020-10-08 05:12] LABS: African American GFR (CKD) >90 (>60 ml/min/1.73 sqM); Anion Gap 2 mmol/L; Blood Urea Nitrogen 12 mg/dL (9-20); Calcium 7.6 mg/dL (8.4-10.2); Carbon Dioxide 25 mmol/L (22-30); Chloride 109 mmol/L (98-107); Glucose 111 mg/dL (74-99); Magnesium 1.6 mg/dL (1.6-2.3); Non-African American GFR(CKD) >90 (>60 ml/min/1.73 sqM); Potassium 3.4 mmol/L (3.5-5.1); Sodium 136 mmol/L (137-145)
[2020-10-08] MEDS ORDERED: Potassium Replacement Protocol 1 EACH MISC MISCELLANE PRN (05:31)
[2020-10-08] MEDS: POTASSIUM CHLORIDE 10 MEQ in WATER FOR INJECTION 1 100ML.BAG IVPB SCH ×4 (05:36→11:30)
[2020-10-08] MEDS: MAGNESIUM SULFATE-D5W PMX 1 GM in DEXTROSE/WATER 1 100ML.BAG IVPB SCH ×2 (05:36→06:55)
[2020-10-08 06:55] LABS: HCT 26.5 % (39.0-53.0); MCH 36.1 pg (25.0-35.0); MCHC 34.7 g/dL (31.0-37.0); MCV 104.1 fL (80.0-100.0); Macrocytosis Slight; Mean Platelet Volume 8.2; Platelet Count 71 k/uL (150-450); RBC 2.55 m/uL (4.30-5.90); RDW 14.1 % (11.5-15.5); WBC 2.4 k/uL (3.8-10.6)
[2020-10-08 06:57] LABS: HGB 9.2 gm/dL (13.0-17.5)
[2020-10-08] MEDS: 1: MVI, ADULT NO.4 WITH VIT K 10 ML, THIAMINE 100 MG, FOLIC ACID 1 MG in SODIUM CHLORIDE IV SCH ×3 (06:57→22:37)
[2020-10-08 07:18] LABS: Band Neutrophils % 1 %; Monocytes # (M) 0.29 k/uL (0-1.0); Neutrophils % (M) 66 %; Nucleated Red Blood Cells 0 /100 WBC (0-0); Total Cells Counted 100
[2020-10-08] MEDS: THIAMINE 100 MG TAB PO SCH ×2 (07:24→16:43)
[2020-10-08] MEDS ORDERED: PROPOFOL 10 MG/ML 20 ML VIAL IV ONE (08:04)
[2020-10-08] MEDS ORDERED: SODIUM CHLORIDE 0.9% 100 ML IV ONE (08:10)
--- NOTE | 2020-10-08 08:32 | P.PCN ---
Date of Procedure: 10/08/20 Description of Procedure: BRIEF HISTORY: 55-year-old male with a history of heavy alcohol abuse, and polysubstance abuse who presented to the hospital due to decreased oral intake. The patient was found to have markedly elevated lipase on presentation and 6047 and has complained of some abdominal pain with associated nausea and vomiting. Currently reporting abdominal pain is improved. He was found to be intoxicated on presentation with a level of 338. Other laboratory evaluation significant for WBC 4.6, hemoglobin 11, platelet count 79,000, total bilirubin 1.9, pleasant phosphatase 82, AST 146 and ALT 98. Computed tomography scan was significant for hepatomegaly and steatosis. Patient was sent to the medical floor for treatment of acute pancreatitis and alcohol intoxication. During the night the patient was found on the floor. There are concerns that the patient had passed out and the patient was subsequently noted to have bright red blood per rectum. He was brought to the ICU where he is being managed. Since that time bowel movements have been maroon and dark in color. He is receiving treatment for alcohol withdrawal. He reports a remote history of gastrointestinal bleed and states he has required EGD and colonoscopy in the past while in [place] but is unclear about the details around these procedures. PROCEDURE PERFORMED: Esophagogastroduodenoscopy with biopsy. PREOPERATIVE DIAGNOSIS: GI bleed, hematochezia, melena. ESTIMATED BLOOD LOSS: Minimal. IV sedation per anesthesia. PROCEDURE: After informed consent was obtained, the patient was brought into the endoscopy unit. IV sedation was administered by Anesthesia under continuous monitoring. Initially the Olympus GIF-190 video endoscope was inserted into the mouth. Esophagus intubated without any difficulty. It was gradually advanced into the stomach and duodenum and carefully examined. The bulb and duodenal sweep were significant for erythema with minimal oozing of blood from trauma from the scope and a small 5 mm nonbleeding ulcer without high-risk stigmata for bleeding yi ggestive of moderate duodenitis and duodenal ulcer. The second portion of the duodenum appeared normal with biopsies of the duodenum taken. The scope at this time was withdrawn to the stomach, adequately insufflated with air, and upon careful examination, mucosa of the antrum, body, cardia and the fundus appeared grossly normal, there was however mild scattered erythema suggestive of mild gastritis with biopsies of antrum and body taken. The scope was then withdrawn into the esophagus. The GE junction was located at 38 cm from the incisors. This all esophagus was significant for erythema and superficial erosions consistent with LA grade C distal esophagitis. The esophagus appeared normal. There were no erosions or ulcerations or varices seen and the patient tolerated the procedure well. IMPRESSION: 1. Diminutive nonbleeding duodenal ulcer without high-risk stigmata for bleeding. 2. Moderate duodenitis. 3. Mild gastritis. 4. LA grade C esophagitis. 5. Biopsies taken of the duodenum and antrum and body. RECOMMENDATIONS: The findings of this examination were discussed with the patient. Patient will be initiated on a full liquid diet, sodium restricted and can advance as t olerated. Continue twice daily Protonix therapy. Carafate 4 times a day before meals and at bedtime added. No plans for further endoscopic evaluation at this time. Recommendation is that patient follow-up after discharge for consideration of colonoscopy in the outpatient setting. Continue other medical management and treatment of alcohol withdrawal.
[2020-10-08] MEDS: PANTOPRAZOLE 40 MG/10 ML VIAL IV SCH (10:04)
[2020-10-08] MEDS: SUCRALFATE 1 GM TAB PO SCH ×3 (10:09→19:22)
--- NOTE | 2020-10-08 12:01 | P.PN ---
Subjective Progress Note Date: 10/08/20 Principal diagnosis: Alcohol withdrawal. 55-year-old male, heavy alcohol abuser, who presented to the emergency room, via EMS, on October 05. He apparently had not been eating or drinking very much at all. He does continue to consume 1 pint of 5 Or whiskey a day. 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 He was admitted to the general medical floor on the , and on the , he came to the ICU. He apparently fell, trying to get out of bed, and was noted to have a low blood pressure, and possible gastrointestinal bleed. Currently, he's not receiving any supplemental oxygen. He is getting saline at 130 mL an hour. He did not require any pressors such as norepinephrine. The patient will be given fluids in the form of D5 0.9, with thiamine. Quite shaky. He does understand what he is going to. His only home medication with Ativan and he has no ALLERGIES. He apparently has no major medical problems. He has used cocaine and marijuana in the past, and apparently is a heavy drinker as mentioned above. He currently does not smoke cigarettes. Progress note dated 10/08/2020 55-year-old male, heavy alcohol abuser, presents to the emergency department on October 05. The patient comes in with what appears to be alcohol withdrawal syndrome/delirium tremens. Currently, the patient's on room air in the ICU. He is receiving fluids with dextrose, and thiamine. He had an EGD which revealed evidence of gastritis, one ulcer, and esophagitis, no evidence of active bleeding. The patient initially presented with what was thought to be a GI blee d, and low blood pressure. Currently, he seems reasonably stable. He did receive 1 mg of Ativan recently. The patient has had no additional GI bleeding. His only medical history is that of seizure disorder. He is a tobacco user. He has no ALLERGIES to medications. He still is a bit shaky. His vital signs been reasonable. He is a bit tachycardic. Objective - Vital Signs Vital signs: Vital Signs Temp 98.3 F 10/08/20 08:00 Pulse 112 H 10/08/20 11:00 Resp 19 10/08/20 11:00 BP 126/97 10/08/20 11:00 Pulse Ox 95 10/08/20 11:00 Intake & Output 10/07/20 10/08/20 10/08/20 18:59 06:59 18:59 Intake Total 2571.2 2630 785 Output Total 400 756 451 Balance 2171.2 1874 334 Weight 72 kg Intake: IV 1500 555 Dextrose 5%-0.9% NaCl 1, 1300 130 000 ml @ 130 mls/hr IV . Q7H42M [facility] Rx#:[id number] Magnesium Sulfate-D5w Pmx 100 200 1 gm In Dextrose/Water 1 100ml.bag @ 100 mls/hr IVPB Q1H [facility] Rx#: [id number] Potassium Chloride 10 meq 100 200 In Water For Injection 1 100ml.bag @ 100 mls/hr IVPB Q1HR [facility] Rx#: [id number] Intake, IV Titration 2571.2 1130 130 Amount Dextrose 5%-0.9% NaCl 1, 1000 000 ml @ 130 mls/hr IV . BY DURATION I[facility] Rx#: [id number] Dextrose 5%-0.9% NaCl 1, 130 000 ml @ 130 mls/hr IV . Q7H42M [facility] Rx#:[id number] Mvi, Adult No.4 with Vit 2181.2 130 K 10 ml Thiamine 100 mg Folic Acid 1 mg In Sodium Chloride 0.9% 1,000 ml @ 130 mls/hr IV .BY DURATION I[facility] Rx#: [id number] Potassium Chloride 10 meq 130 In Water For Injection 1 100ml.bag @ 100 mls/hr IVPB Q1HR [facility] Rx#: [id number] Sodium Chloride 0.9% 1, 260 000 ml @ 130 mls/hr IV . Q7H42M [facility] Rx#:[id number] Oral 100 Output: Urine 400 755 450 Stool 1 1 Other: Voiding Method Urinal Urinal Urinal # Voids 1 1 # Bowel Movements 1 1 - Exam No acute distress, oriented 3. The patient appears much more comfortable and stable today. HEENT examination is grossly unremarkable. Mucous membranes are moist. No oral lesions. Neck supple. Full range of motion. No adenopathy thyromegaly or neck vein distention. Cardiovascular examination reveals regular rhythm rate. S1-S2 normal. No S3 or S4. No discernible murmur noted. Heart rate is 112 bpm. Lungs reveal clear breath sounds. Her sounds are equal bilaterally. No adventitious lung sounds including wheezes rhonchi or crackles. Abdomen soft bowel sounds are heard. No masses or tenderness. Extremities are intact. No cyanosis clubbing or edema. Skin is without rash or lesion. Neurologic examination is brief but nonfocal. A slight tremor is noted. - Labs CBC & Chem 7: 10/08/20 04:19 10/08/20 04:19 Labs: Abnormal Lab Results - Last 24 Hours (Table) 10/08/20 10/08/20 Range/Units 04:19 04:19 WBC 2.4 L (3.8-10.6) k/uL RBC 2.55 L (4.30-5.90) m/uL Hgb 9.2 L D (13.0-17.5) gm/dL Hct 26.5 L (39.0-53.0) % MCV 104.1 H (80.0-100.0) fL MCH 36.1 H (25.0-35.0) pg Plt Count 71 L (150-450) k/uL Lymphocytes # (Manual) 0.50 L (1.0-4.8) k/uL Sodium 136 L (137-145) mmol/L Potassium 3.4 L (3.5-5.1) mmol/L Chloride 109 H (98-107) mmol/L Glucose 111 H (74-99) mg/dL Calcium 7.6 L (8.4-10.2) mg/dL Assessment and Plan Assessment: Alcohol withdrawal syndrome in a patient who has a history of alcohol abuse. Alcoholic pancreatitis. Possible GI bleed, secondary to alcoholic gastritis or esophagitis. Status post EGD, 10/08/2020, with esophagitis, gastritis, and duodenal ulcer, without active bleeding. Recent fall, with negative brain scan. Lactic acidosis, improved. Mild hyperbilirubinemia. Mild alcohol-induced coagulopathy. Prerenal azotemia. Chronic anemia. Thrombocytopenia, secondary to alcohol-induced bone marrow suppression. Hypotension, resolved, with IV fluids. Plan: Plan dated 10/08/2020. Currently, the patient appears to be a bit more stable. He might be considered for transfer later today. We're still concerned about alcohol withdrawal syndrome/delirium tremens, as well as alcoholic seizures. The patient had an EGD. There is no evidence of active bleeding. There was evidence of gastritis, esophagitis, and a duodenal ulcer. Current vital signs are stable safer tachycardia. White count is 2.4, hemoglobin 9.2, hematocrit 26.5, platelet count 71,000. Sodium is 136, potassium 3.4, chlorides 109, CO2 25, normal anion gap, BUN and creatinine 12 and 0.71 respectively. Prognosis is guarded. We counseled him about the importance of alcohol cessation. We will continue to follow him. Time with Patient: Less than 30
[2020-10-08] MEDS ORDERED: ACETAMINOPHEN TAB 325 MG TAB PO PRN (18:19)
--- NOTE | 2020-10-08 20:42 | P.PN ---
Subjective Progress Note Date: 10/07/20 Principal diagnosis: Acute alcohol intoxication Acute pancreatitis Patient is a 55-year-old male with a known history of heavy alcohol abuse on daily basis, cocaine, marijuana use was brought to ER by EMS as he is not eating for the past several days and drinking alcohol on daily basis. Patient does drink 1 pint daily. Patient has been having nausea and few episodes of vomi ting. Patient did have abdominal pain. No cough or sputum production. No fever no chills. Patient could not provide much history as the patient is intoxicated currently. Chest x-ray showed no acute process. Correlate for COPD. EKG showed sinus tachycardia. Laboratory data showed WBC 4.9, hemoglobin 16.4 MCV 101.0, platelets 73 Lactic acid 3.0, magnesium 1.7 calcium 7.9 AST 483 ALT 173 and alk phos 137 and lipase level is 6047 Serum alcohol level is 338 10/06/2020 Patient is currently resting in the bed comfortably. Abdominal pain is better. Tolerating liquid diet. Living and subtending down. Otherwise patient is still shaky and requiring alcohol withdrawal protocol. Continue with multivitamins and thiamine and advance diet as tolerated. Patient denied any complains of chest pain. No nausea vomiting or diarrhea. No dysuria or hematuria. Patient has been afebrile. 10/07/2020 Patient is currently resting in the bed. Awake alert and oriented.Denied any complaints of chest pain or shortness of. Mild upper abdominal discomfort. Overnight patient had dark tarry bowel movement and patient felt dizzy. Acute GI bleed was suspected and patient was given IV fluid bolus normal saline and GI was consulted. Patient was transferred to MICU for close monitoring. Protonix changed to IV daily. Gastroenterology is planning for EGD tomorrow. Lab data showed hemoglobin 11.0 and platelets 79, sodium 136 potassium 4.4 chloride 109 BUN 31 and creatinine 0.91 current medications reviewed. Objective - Vital Signs Vital signs: Vital Signs Temp 97.9 F 10/07/20 20:00 Pulse 102 H 10/07/20 22:00 Resp 19 10/07/20 22:00 BP 113/81 10/07/20 22:00 Pulse Ox 96 10/07/20 22:00 Intake & Output 10/07/20 10/07/20 10/08/20 06:59 18:59 06:59 Intake Total 2660 1560 520 Output Total 400 301 Balance 2660 1160 219 Weight 77.1 kg Intake: IV 2000 390 0.9 bolus 2000 Dextrose 5%-0.9% NaCl 1, 390 000 ml @ 130 mls/hr IV . Q7H42M [facility] Rx#:[id number] Intake, IV Titration 660 1560 130 Amount Dextrose 5%-0.9% NaCl 1, 130 000 ml @ 130 mls/hr IV . Q7H42M [facility] Rx#:[id number] Magnesium Sulfate-D5w Pmx 300 1 gm In Dextrose/Water 1 100ml.bag @ 100 mls/hr IVPB Q1H [facility] Rx#: [id number] Mvi, Adult No.4 with Vit 1170 130 K 10 ml Thiamine 100 mg Folic Acid 1 mg In Sodium Chloride 0.9% 1,000 ml @ 130 mls/hr IV .BY DURATION [facility] Rx#: [id number] Sodium Chloride 0.9% 1, 360 260 000 ml @ 130 mls/hr IV . Q7H42M [facility] Rx#:[id number] Output: Urine 400 300 Stool 1 Other: Voiding Method Urinal Urinal Urinal Diaper # Voids 1 1 # Bowel Movements 1 1 - Exam PHYSICAL EXAMINATION: Patient is lying in the bed comfortably, no acute distress, awake alert and oriented. Drowsy.. HEENT: Normocephalic. Neck is supple. Pupils reactive. Nostrils clear. Oral cavity is moist. Ears reveal no drainage. Neck reveals no JVD, carotid bruits, or thyromegaly. CHEST EXAMINATION: Trachea is central. Symmetrical expansion. Lung carrillo clear to auscultation and percussion. CARDIAC: Normal S1, S2 with no gallops. No murmurs ABDOMEN: Soft. Mild epigastric tenderness. Bowel sounds normal. No organomegaly. No abdominal bruits. Extremities: reveal no edema. No clubbing or cyanosis Neurologically awake, alert, oriented x3 with well-coordinated movements. No focal deficits noted Skin: No rash or skin lesions. Psychiatric: Coperative. Nonsuicidal Musculoskeletal: No joint swelling or deformity. Normal range of motion. - Labs CBC & Chem 7: 10/08/20 04:19 10/08/20 04:19 Labs: Abnormal Lab Results - Last 24 Hours (Table) 10/06/20 10/06/20 10/06/20 Range/Units 23:15 23:30 23:30 WBC 2.8 L (3.8-10.6) k/uL RBC 3.17 L (4.30-5.90) m/uL Hgb 12.0 L (13.0-17.5) gm/dL Hct 34.4 L (39.0-53.0) % MCV 108.4 H D (80.0-100.0) fL MCH 37.7 H (25.0-35.0) pg Plt Count (150-450) k/uL Lymphocytes # (Manual) 0.50 L (1.0-4.8) k/uL Macrocytosis Marked A PT 12.8 H (9.0-12.0) sec INR 1.2 H (<1.2) Sodium (137-145) mmol/L Chloride (98-107) mmol/L Carbon Dioxide 20 L (22-30) mmol/L BUN 30 H (9-20) mg/dL Creatinine 1.27 H (0.66-1.25) mg/dL Glucose 121 H (74-99) mg/dL POC Glucose (mg/dL) (75-99) mg/dL Plasma Lactic Acid Nawaf (0.7-2.0) mmol/L Calcium 8.2 L (8.4-10.2) mg/dL Magnesium 1.3 L (1.6-2.3) mg/dL Total Bilirubin 1.9 H (0.2-1.3) mg/dL AST 146 H (17-59) U/L ALT 98 H (4-49) U/L Total Protein 5.3 L (6.3-8.2) g/dL Albumin 2.6 L (3.5-5.0) g/dL 10/06/20 10/06/20 10/07/20 Range/Units 23:30 23:55 04:33 WBC (3.8-10.6) k/uL RBC 3.07 L (4.30-5.90) m/uL Hgb 11.0 L (13.0-17.5) gm/dL Hct 31.6 L (39.0-53.0) % MCV 102.8 H D (80.0-100.0) fL MCH 35.9 H (25.0-35.0) pg Plt Count 79 L D (150-450) k/uL Lymphocytes # (Manual) 0.83 L (1.0-4.8) k/uL Macrocytosis PT (9.0-12.0) sec INR (<1.2) Sodium (137-145) mmol/L Chloride (98-107) mmol/L Carbon Dioxide (22-30) mmol/L BUN (9-20) mg/dL Creatinine (0.66-1.25) mg/dL Glucose (74-99) mg/dL POC Glucose (mg/dL) 101 H (75-99) mg/dL Plasma Lactic Acid Nawaf 2.2 H* (0.7-2.0) mmol/L Calcium (8.4-10.2) mg/dL Magnesium (1.6-2.3) mg/dL Total Bilirubin (0.2-1.3) mg/dL AST (17-59) U/L ALT (4-49) U/L Total Protein (6.3-8.2) g/dL Albumin (3.5-5.0) g/dL 10/07/20 Range/Units 04:33 WBC (3.8-10.6) k/uL RBC (4.30-5.90) m/uL Hgb (13.0-17.5) gm/dL Hct (39.0-53.0) % MCV (80.0-100.0) fL MCH (25.0-35.0) pg Plt Count (150-450) k/uL Lymphocytes # (Manual) (1.0-4.8) k/uL Macrocytosis PT (9.0-12.0) sec INR (<1.2) Sodium 136 L (137-145) mmol/L Chloride 109 H (98-107) mmol/L Carbon Dioxide (22-30) mmol/L BUN 31 H (9-20) mg/dL Creatinine (0.66-1.25) mg/dL Glucose (74-99) mg/dL POC Glucose (mg/dL) (75-99) mg/dL Plasma Lactic Acid Nawaf (0.7-2.0) mmol/L Calcium 8.0 L (8.4-10.2) mg/dL Magnesium (1.6-2.3) mg/dL Total Bilirubin (0.2-1.3) mg/dL AST (17-59) U/L ALT (4-49) U/L Total Protein (6.3-8.2) g/dL Albumin (3.5-5.0) g/dL Assessment and Plan Assessment: Possible acute acute GI bleed with dark tarry stool. Acute blood loss anemia. Acute alcohol intoxication with a level 338 Acute alcohol withdrawal symptoms Severe alcohol abuse Lactic acidosis secondary to dehydration and volume depletion Acute alcoholic hepatitis with elevated liver enzymes AST greater than ALT Acute pancreatitis with lipase level 6047 Macrocytosis and thrombocytopenia secondary to alcohol abuse Marijuana use and cocaine use DVT prophylaxis and GI prophylaxis. Plan: Patient will be continued on IV hydrationand PPI.. GI is planning for EGD tomorrow. Continue with pain management and GI and DVT prophylaxis. Further recommendations based on the clinical course. Continue with alcohol withdrawal protocol. Time with Patient: Greater than 30
--- NOTE | 2020-10-08 21:11 | P.PN ---
Subjective Progress Note Date: 10/08/20 Principal diagnosis: Acute alcohol intoxication Acute pancreatitis Patient is a 55-year-old male with a known history of heavy alcohol abuse on daily basis, cocaine, marijuana use was brought to ER by EMS as he is not eating for the past several days and drinking alcohol on daily basis. Patient does drink 1 pint daily. Patient has been having nausea and few episodes of vomi ting. Patient did have abdominal pain. No cough or sputum production. No fever no chills. Patient could not provide much history as the patient is intoxicated currently. Chest x-ray showed no acute process. Correlate for COPD. EKG showed sinus tachycardia. Laboratory data showed WBC 4.9, hemoglobin 16.4 MCV 101.0, platelets 73 Lactic acid 3.0, magnesium 1.7 calcium 7.9 AST 483 ALT 173 and alk phos 137 and lipase level is 6047 Serum alcohol level is 338 10/06/2020 Patient is currently resting in the bed comfortably. Abdominal pain is better. Tolerating liquid diet. Living and subtending down. Otherwise patient is still shaky and requiring alcohol withdrawal protocol. Continue with multivitamins and thiamine and advance diet as tolerated. Patient denied any complains of chest pain. No nausea vomiting or diarrhea. No dysuria or hematuria. Patient has been afebrile. 10/07/2020 Patient is currently resting in the bed. Awake alert and oriented.Denied any complaints of chest pain or shortness of. Mild upper abdominal discomfort. Overnight patient had dark tarry bowel movement and patient felt dizzy. Acute GI bleed was suspected and patient was given IV fluid bolus normal saline and GI was consulted. Patient was transferred to MICU for close monitoring. Protonix changed to IV daily. Gastroenterology is planning for EGD tomorrow. Lab data showed hemoglobin 11.0 and platelets 79, sodium 136 potassium 4.4 chloride 109 BUN 31 and creatinine 0.91 10/08/2020 Patient is currently in the MICU. Denied any complaints of abdominal pain. Does have nausea no episodes of vomiting. Hemoglobin is stable. Patient underwent EGD today showed diminutive nonbleeding duodenal ulcer without high risk stigmata for bleeding. Moderate duodenitis. Mild gastritis. LA grade C esophagitis. Biopsies taken of the duodenum antrum and body. Laboratory data showed hemoglobin level is 9.2 MCV 104.1 and platelets 91 sodium 136 potassium 3.4 chloride 109 and magnesium 1.6 which will be replaced. Patient is being transferred to medical floor today. current medications reviewed. Objective - Vital Signs Vital signs: Vital Signs Temp 98.5 F 10/08/20 14:32 Pulse 125 H 10/08/20 14:32 Resp 18 10/08/20 14:32 BP 152/82 10/08/20 14:32 Pulse Ox 98 10/08/20 14:32 Intake & Output 10/07/20 10/08/20 10/08/20 18:59 06:59 18:59 Intake Total 2571.2 2630 785 Output Total 400 756 451 Balance 2171.2 1874 334 Weight 72 kg Intake: IV 1500 555 Dextrose 5%-0.9% NaCl 1, 1300 130 000 ml @ 130 mls/hr IV . Q7H42M [facility] Rx#:[id number] Magnesium Sulfate-D5w Pmx 100 200 1 gm In Dextrose/Water 1 100ml.bag @ 100 mls/hr IVPB Q1H [facility] Rx#: [id number] Potassium Chloride 10 meq 100 200 In Water For Injection 1 100ml.bag @ 100 mls/hr IVPB Q1HR [facility] Rx#: [id number] Intake, IV Titration 2571.2 1130 130 Amount Dextrose 5%-0.9% NaCl 1, 1000 000 ml @ 130 mls/hr IV . BY DURATION I[facility] Rx#: [id number] Dextrose 5%-0.9% NaCl 1, 130 000 ml @ 130 mls/hr IV . Q7H42M [facility] Rx#:[id number] Mvi, Adult No.4 with Vit 2181.2 130 K 10 ml Thiamine 100 mg Folic Acid 1 mg In Sodium Chloride 0.9% 1,000 ml @ 130 mls/hr IV .BY DURATION [facility] Rx#: [id number] Potassium Chloride 10 meq 130 In Water For Injection 1 100ml.bag @ 100 mls/hr IVPB Q1HR [facility] Rx#: [id number] Sodium Chloride 0.9% 1, 260 000 ml @ 130 mls/hr IV . Q7H42M [facility] Rx#:[id number] Oral 100 Output: Urine 400 755 450 Stool 1 1 Other: Voiding Method Urinal Urinal Urinal # Voids 1 1 # Bowel Movements 1 1 - Exam PHYSICAL EXAMINATION: Patient is lying in the bed comfortably, no acute distress, awake alert and oriented. Drowsy.. HEENT: Normocephalic. Neck is supple. Pupils reactive. Nostrils clear. Oral cavity is moist. Ears reveal no drainage. Neck reveals no JVD, carotid bruits, or thyromegaly. CHEST EXAMINATION: Trachea is central. Symmetrical expansion. Lung carrillo clear to auscultation and percussion. CARDIAC: Normal S1, S2 with no gallops. No murmurs ABDOMEN: Soft. Mild epigastric tenderness. Bowel sounds normal. No organomegaly. No abdominal bruits. Extremities: reveal no edema. No clubbing or cyanosis Neurologically awake, alert, oriented x3 with well-coordinated movements. No focal deficits noted Skin: No rash or skin lesions. Psychiatric: Coperative. Nonsuicidal Musculoskeletal: No joint swelling or deformity. Normal range of motion. - Labs CBC & Chem 7: 10/08/20 04:19 10/08/20 04:19 Labs: Abnormal Lab Results - Last 24 Hours (Table) 10/08/20 10/08/20 Range/Units 04:19 04:19 WBC 2.4 L (3.8-10.6) k/uL RBC 2.55 L (4.30-5.90) m/uL Hgb 9.2 L D (13.0-17.5) gm/dL Hct 26.5 L (39.0-53.0) % MCV 104.1 H (80.0-100.0) fL MCH 36.1 H (25.0-35.0) pg Plt Count 71 L (150-450) k/uL Lymphocytes # (Manual) 0.50 L (1.0-4.8) k/uL Sodium 136 L (137-145) mmol/L Potassium 3.4 L (3.5-5.1) mmol/L Chloride 109 H (98-107) mmol/L Glucose 111 H (74-99) mg/dL Calcium 7.6 L (8.4-10.2) mg/dL Assessment and Plan Assessment: acute acute GI bleed with dark tarry stool. Patient underwent EGD today showed diminutive nonbleeding duodenal ulcer without high risk stigmata for bleeding. Moderate duodenitis. Mild gastritis. LA grade C esophagitis Acute blood loss anemia. Acute alcohol intoxication with a level 338 Acute alcohol withdrawal symptoms Severe alcohol abuse Lactic acidosis secondary to dehydration and volume depletion Acute alcoholic hepatitis with elevated liver enzymes AST greater than ALT Acute pancreatitis with lipase level 6047 Macrocytosis and thrombocytopenia secondary to alcohol abuse Marijuana use and cocaine use DVT prophylaxis and GI prophylaxis. Plan: Patient will be continued on IV hydrationand PPI.. GI isfollowing. s/p EGD. f/u biopsy reports. Continue with pain management and GI and DVT prophylaxis. Further recommendations based on the clinical course. Continue with alcohol withdrawal protocol. Time with Patient: Greater than 30
[2020-10-09] MEDS: 1: MVI, ADULT NO.4 WITH VIT K 10 ML, THIAMINE 100 MG, FOLIC ACID 1 MG in SODIUM CHLORIDE IV SCH ×2 (01:16→09:02)
[2020-10-09] MEDS: LORazepam 2 MG/ML INJ IV PRN (04:16)
[2020-10-09 06:21] LABS: HCT 25.6 % (39.0-53.0); HGB 8.9 gm/dL (13.0-17.5); MCH 35.9 pg (25.0-35.0); MCHC 34.6 g/dL (31.0-37.0); MCV 103.7 fL (80.0-100.0); Macrocytosis Slight; Mean Platelet Volume 7.6; RBC 2.47 m/uL (4.30-5.90); WBC 2.7 k/uL (3.8-10.6)
[2020-10-09 07:25] LABS: Platelet Count 83 k/uL (150-450)
[2020-10-09] MEDS: THIAMINE 100 MG TAB PO SCH ×2 (07:51→17:07)
[2020-10-09] MEDS: SUCRALFATE 1 GM TAB PO SCH ×4 (07:51→19:53)
[2020-10-09] MEDS: PANTOPRAZOLE 40 MG/10 ML VIAL IV SCH (07:51)
[2020-10-09 08:49] LABS: Eosinophils # (M) 0.03 k/uL (0-0.7); Lymphocytes # (M) 0.54 k/uL (1.0-4.8); Monocytes # (M) 0.19 k/uL (0-1.0); Neutrophils # (M) 1.94 k/uL (1.3-7.7); Neutrophils % (M) 72 %; Nucleated Red Blood Cells 0 /100 WBC (0-0); Total Cells Counted 100
[2020-10-09 08:50] LABS: Poikilocytosis (M) Present
[2020-10-09 09:45] LABS: Anion Gap 4.3 mmol/L (4.00-12.00); Calcium 7.9 mg/dL (8.7-10.3); Carbon Dioxide 26.7 mmol/L (21.6-31.8); Magnesium 1.6 mg/dL (1.5-2.4); Potassium 3.3 mmol/L (3.5-5.5)
--- NOTE | 2020-10-09 11:21 | P.PN ---
Subjective Progress Note Date: 10/09/20 55-year-old male, heavy alcohol abuser, who presented to the emergency room, via EMS, on October 05. He apparently had not been eating or drinking very much at all. He does continue to consume 1 pint of 5 Or whiskey a day. 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 He was admitted to the general medical floor on the , and on the , he came to the ICU. He has used cocaine and marijuana in the past, and apparently is a heavy drinker as mentioned above. He currently does not smoke cigar On today's evaluation of 10/09/2020, the patient is alert and awake. His communicating. A bit shaky. He is oriented to place and people. He moved here from [place]. His lipase level is improving. His hemoglobin is stable. He had a significant drop in hemoglobin. EGD was done and it showed nonbleeding duodenal ulcer without high risk of stigmata for bleeding. He had moderate duod enitis, mild gastritis, grade C esophagitis. Biopsies were taken. For now, he had a breakfast this morning. No nausea. No vomiting. No diarrhea. No abdominal pain. No respiratory distress. Platelets are low related to various chronic alcohol drinking. He is on D5W at the rate of 100 mL an hour. He is also on thiamine. Objective - Vital Signs Vital signs: Vital Signs Temp 99.4 F 10/09/20 07:34 Pulse 112 H 10/09/20 07:34 Resp 17 10/09/20 07:34 BP 131/89 10/09/20 07:34 Pulse Ox 98 10/09/20 07:34 Intake & Output 10/08/20 10/09/20 10/09/20 18:59 06:59 18:59 Intake Total 1785 Output Total 451 200 Balance 1334 -200 Intake: IV 555 Dextrose 5%-0.9% NaCl 1, 130 000 ml @ 130 mls/hr IV . Q7H42M I[facility] Rx#:[id number] Magnesium Sulfate-D5w Pmx 200 1 gm In Dextrose/Water 1 100ml.bag @ 100 mls/hr IVPB Q1H ISELA Rx#: [id number] Potassium Chloride 10 meq 200 In Water For Injection 1 100ml.bag @ 100 mls/hr IVPB Q1HR ISELA Rx#: [id number] Intake, IV Titration 1130 Amount Dextrose 5%-0.9% NaCl 1, 1000 000 ml @ 130 mls/hr IV . BY DURATION ISELA Rx#: [id number] Potassium Chloride 10 meq 130 In Water For Injection 1 100ml.bag @ 100 mls/hr IVPB Q1HR ISELA Rx#: [id number] Oral 100 Output: Urine 450 200 Stool 1 Other: Voiding Method Urinal Urinal Urinal - Exam No acute distress, oriented 3. The patient appears much more comfortable and stable today. HEENT examination is grossly unremarkable. Mucous membranes are moist. No oral lesions. Neck supple. Full range of motion. No adenopathy thyromegaly or neck vein distention. Cardiovascular examination reveals regular rhythm rate. S1-S2 normal. No S3 or S4. No discernible murmur noted. Heart rate is 112 bpm. Lungs reveal clear breath sounds. Her sounds are equal bilaterally. No adventitious lung sounds including wheezes rhonchi or crackles. Abdomen soft bowel sounds are heard. No masses or tenderness. Extremities are intact. No cyanosis clubbing or edema. Skin is without rash or lesion. Neurologic examination is brief but nonfocal. A slight tremor is noted. - Labs CBC & Chem 7: 10/09/20 06:01 10/09/20 06:01 Labs: Abnormal Lab Results - Last 24 Hours (Table) 10/09/20 10/09/20 Range/Units 06:01 06:01 WBC 2.7 L (3.8-10.6) k/uL RBC 2.47 L (4.30-5.90) m/uL Hgb 8.9 L (13.0-17.5) gm/dL Hct 25.6 L (39.0-53.0) % MCV 103.7 H (80.0-100.0) fL MCH 35.9 H (25.0-35.0) pg Plt Count 83 L (150-450) k/uL Lymphocytes # (Manual) 0.54 L (1.0-4.8) k/uL Potassium 3.3 L (3.5-5.5) mmol/L BUN 7.0 L (9.0-27.0) mg/dL BUN/Creatinine Ratio 10.00 L (12.00-20.00) Ratio Glucose 118 H (70-110) mg/dL Calcium 7.9 L (8.7-10.3) mg/dL Assessment and Plan Plan: Alcohol withdrawal syndrome in a patient who has a history of alcohol abuse. She is mental status improved Alcoholic pancreatitis. Clinically the patient is improved Possible GI bleed, secondary to alcoholic gastritis or esophagitis. Please refer to the EGD results that showed esophagitis and gastritis and duodenal ulcer that was not showing any of bleeding. The patient had a drop in hemoglobin during this current hospitalization. Status post EGD, 10/08/2020, with esophagitis, gastritis, and duodenal ulcer, without active bleeding. Recent fall, with negative brain scan. Lactic acidosis, improved. Mild hyperbilirubinemia. Mild alcohol-induced coagulopathy. Prerenal azotemia. Chronic anemia. Thrombocytopenia, secondary to alcohol-induced bone marrow suppression. Hypotension, resolved, with IV fluids.Hypotension recovered Plan: GD was noted. Hemoglobin is stable. Lipase levels are dropping. No seizure activity. He is still having some limited alcohol withdrawal was and shakiness. Nevertheless, no confusion. No agitation. The patient's is currently on a ar dical floor. Pulmonary critical care services will sign off. Fluids to KVO.
[2020-10-09] MEDS: POTASSIUM CHLORIDE ER 20 MEQ TAB.ER PO SCH ×2 (12:30→13:45)
--- NOTE | 2020-10-09 13:18 | P.PN ---
Subjective Progress Note Date: 10/09/20 Principal diagnosis: Abdominal pain, pancreatitis A 55-year-old male who came into the emergency room with new pain acute alcohol intoxication and dehydration. Was found to have an elevated lipase consistent with acute pancreatitis. While he was admitted in the [facility] he had all and in his room and it was reported that he had some blood from the rectum/stool. Yesterday he underwent an upper endoscopy. He is on Protonix twice a day and Carafate 4 times a day. Today he states he has no abdominal pain, no nausea, no vomiting. He is on CIWA protocol mild he appears very shaky today. States he is having some anxiety. Lipase is morning is pending. Objective - Vital Signs Vital signs: Vital Signs Temp 99.4 F 10/09/20 07:34 Pulse 112 H 10/09/20 07:34 Resp 17 10/09/20 07:34 BP 131/89 10/09/20 07:34 Pulse Ox 98 10/09/20 07:34 Intake & Output 10/08/20 10/09/20 10/09/20 18:59 06:59 18:59 Intake Total 1785 Output Total 451 200 Balance 1334 -200 Intake: IV 555 Dextrose 5%-0.9% NaCl 1, 130 000 ml @ 130 mls/hr IV . Q7H42M ISELA Rx#:[id number] Magnesium Sulfate-D5w Pmx 200 1 gm In Dextrose/Water 1 100ml.bag @ 100 mls/hr IVPB Q1H ISELA Rx#: [id number] Potassium Chloride 10 meq 200 In Water For Injection 1 100ml.bag @ 100 mls/hr IVPB Q1HR ISELA Rx#: [id number] Intake, IV Titration 1130 Amount Dextrose 5%-0.9% NaCl 1, 1000 000 ml @ 130 mls/hr IV . BY DURATION ISELA Rx#: [id number] Potassium Chloride 10 meq 130 In Water For Injection 1 100ml.bag @ 100 mls/hr IVPB Q1HR ISELA Rx#: [id number] Oral 100 Output: Urine 450 200 Stool 1 Other: Voiding Method Urinal Urinal Urinal - Exam General appearance: The patient is alert, oriented, appears in no acute distress. HET: Head is normocephalic and atraumatic. Conjunctiva pink. Sclera anicteric. Neck: Supple without lymphadenopathy. Abdomen: Soft, nontender, nondistended with bowel sounds. No guarding or rigidity. Extremities: Normal skin color and turgor. No pedal edema Neurological: No focal deficits. Alert and oriented 3. - Labs CBC & Chem 7: 10/09/20 06:01 10/09/20 06:01 Labs: Abnormal Lab Results - Last 24 Hours (Table) 10/09/20 10/09/20 Range/Units 06:01 06:01 WBC 2.7 L (3.8-10.6) k/uL RBC 2.47 L (4.30-5.90) m/uL Hgb 8.9 L (13.0-17.5) gm/dL Hct 25.6 L (39.0-53.0) % MCV 103.7 H (80.0-100.0) fL MCH 35.9 H (25.0-35.0) pg Plt Count 83 L (150-450) k/uL Lymphocytes # (Manual) 0.54 L (1.0-4.8) k/uL Potassium 3.3 L (3.5-5.5) mmol/L BUN 7.0 L (9.0-27.0) mg/dL BUN/Creatinine Ratio 10.00 L (12.00-20.00) Ratio Glucose 118 H (70-110) mg/dL Calcium 7.9 L (8.7-10.3) mg/dL Assessment and Plan (1) Acute pancreatitis Narrative/Plan: 55-year-old male with a history of heavy alcohol abuse presenting for decreased oral intake. He reported decreased oral intake in association with some abdominal pain and nausea and vomiting. Found to have markedly elevated lipase of 6047 on presentation the patient was admitted for treatment of acute pancreatitis and alcohol withdrawal. On the medical floor the patient was found on the floor of his room and subsequently had bloody bowel movements. Initially bright red blood per rectum, subsequent bowel movements have been maroon and now darker in color. No hematemesis or coffee-ground emesis noted. Unclear etiology, patient likely has alcoholic liver disease and possible cirrhosis although symptoms are not suggestive of a variceal bleed, plan is for EGD to rule out peptic ulcer disease or other upper GI source of blood loss, may also be related to lower GI bleed from diverticula, AVM or other etiology. Patient is status post EGD which showed diminutive nonbleeding duodenal ulcer without high-risk stigmata for bleeding, moderate duodenitis, mild gastritis, LA grade C esophagitis. Current Visit: Yes Status: Acute Code(s): K85.90 - ACUTE PANCREATITIS WITHOU T NECROSIS OR INFECTION, UNSP SNOMED Code(s): 500377063 (2) Alcoholic intoxication Current Visit: Yes Status: Acute Code(s): F10.929 - ALCOHOL USE, UNSPECIFIED WITH INTOXICATION, UNSPECIFIED SNOMED Code(s): 26517850 (3) Alcoholic liver disease Narrative/Plan: Elevated liver enzymes in the setting of chronic heavy alcohol abuse, suspect a degree of underlying liver disease and probable cirrhosis given thrombocytopenia and elevation of liver enzymes. Computed tomography scan of the abdomen did show hepatomegaly and steatosis. Current Visit: Yes Status: Acute Code(s): K70.9 - ALCOHOLIC LIVER DISEASE, UNSPECIFIED SNOMED Code(s): 15632288 (4) GI bleed Current Visit: Yes Status: Acute Code(s): K92.2 - GASTROINTESTINAL HEMORRHAGE, UNSPECIFIED SNOMED Code(s): 63513750 Plan: 1. Supportive care 2. Continue full liquid diet, will consider advancement once lipase is resulted 3. Alcohol abstinence 4. Continue CIWA protocol 5. Repeat CBC, CMP, lipase tomorrow We will continue to follow
--- NOTE | 2020-10-09 14:09 | P.PN ---
Subjective Principal diagnosis: Abdominal pain, pancreatitis This is a 55-year-old male who came into the emergency room with abdominal pain, acute alcohol intoxication and dehydration. Was found to have an elevated lipase consistent with acute pancreatitis. While he was admitted in the hospital he had fall in his room and it was reported that he had some blood from the rectum/stool. Yesterday he underwent an upper endoscopy. He is on Protonix twice a day and Carafate 4 times a day. Today he states he has no abdominal pain, no nausea, no vomiting. He is on CIWA protocol mild he appears very shaky today. States he is having some anxiety. Lipase is morning is pending. Objective - Vital Signs Vital signs: Vital Signs Temp 99.4 F 10/09/20 07:34 Pulse 112 H 10/09/20 07:34 Resp 17 10/09/20 07:34 BP 131/89 10/09/20 07:34 Pulse Ox 98 10/09/20 07:34 Intake & Output 10/08/20 10/09/20 10/09/20 18:59 06:59 18:59 Intake Total 1785 Output Total 451 200 Balance 1334 -200 Intake: IV 555 Dextrose 5%-0.9% NaCl 1, 130 000 ml @ 130 mls/hr IV . Q7H42M ISELA Rx#:[id number] Magnesium Sulfate-D5w Pmx 200 1 gm In Dextrose/Water 1 100ml.bag @ 100 mls/hr IVPB Q1H ISELA Rx#: [id number] Potassium Chloride 10 meq 200 In Water For Injection 1 100ml.bag @ 100 mls/hr IVPB Q1HR ISELA Rx#: [id number] Intake, IV Titration 1130 Amount Dextrose 5%-0.9% NaCl 1, 1000 000 ml @ 130 mls/hr IV . BY DURATION ISELA Rx#: [id number] Potassium Chloride 10 meq 130 In Water For Injection 1 100ml.bag @ 100 mls/hr IVPB Q1HR ISELA Rx#: [id number] Oral 100 Output: Urine 450 200 Stool 1 Other: Voiding Method Urinal Urinal Urinal - Exam General appearance: The patient is alert, oriented, appears in no acute distress. HET: Head is normocephalic and atraumatic. Conjunctiva pink. Sclera anicteric. Neck: Supple without lymphadenopathy. Abdomen: Soft, nontender, nondistended with bowel sounds. No guarding or rigidity. Extremities: Normal skin color and turgor. No pedal edema Neurological: No focal deficits. Alert and oriented 3. - Labs CBC & Chem 7: 10/09/20 06:01 10/09/20 06:01 Labs: Abnormal Lab Results - Last 24 Hours (Table) 10/09/20 10/09/20 Range/Units 06:01 06:01 WBC 2.7 L (3.8-10.6) k/uL RBC 2.47 L (4.30-5.90) m/uL Hgb 8.9 L (13.0-17.5) gm/dL Hct 25.6 L (39.0-53.0) % MCV 103.7 H (80.0-100.0) fL MCH 35.9 H (25.0-35.0) pg Plt Count 83 L (150-450) k/uL Lymphocytes # (Manual) 0.54 L (1.0-4.8) k/uL Potassium 3.3 L (3.5-5.5) mmol/L BUN 7.0 L (9.0-27.0) mg/dL BUN/Creatinine Ratio 10.00 L (12.00-20.00) Ratio Glucose 118 H (70-110) mg/dL Calcium 7.9 L (8.7-10.3) mg/dL Assessment and Plan (1) Acute pancreatitis Narrative/Plan: 55-year-old male with a history of heavy alcohol abuse presenting for decreased oral intake. He reported decreased oral intake in association with some abdominal pain and nausea and vomiting. Found to have markedly elevated lipase of 6047 on presentation the patient was admitted for treatment of acute pancreatitis and alcohol withdrawal. On the medical floor the patient was found on the floor of his room and subsequently had bloody bowel movements. Initially bright red blood per rectum, subsequent bowel movements have been maroon and now darker in color. No hematemesis or coffee-ground emesis noted. Unclear etiology, patient likely has alcoholic liver disease and possible cirrhosis although symptoms are not suggestive of a variceal bleed, plan is for EGD to rule out peptic ulcer disease or other upper GI source of blood loss, may also be related to lower GI bleed from diverticula, AVM or other etiology. Patient is status post EGD which showed diminutive nonbleeding duodenal ulcer wi thout high-risk stigmata for bleeding, moderate duodenitis, mild gastritis, LA grade C esophagitis. Current Visit: Yes Status: Acute Code(s): K85.90 - ACUTE PANCREATITIS WITHOUT NECROSIS OR INFECTION, UNSP SNOMED Code(s): 608663049 (2) Alcoholic intoxication Current Visit: Yes Status: Acute Code(s): F10.929 - ALCOHOL USE, UNSPECIFIED WITH INTOXICATION, UNSPECIFIED SNOMED Code(s): 25693909 (3) Alcoholic liver disease Narrative/Plan: Elevated liver enzymes in the setting of chronic heavy alcohol abuse, suspect a degree of underlying liver disease and probable cirrhosis given thrombocytopenia and elevation of liver enzymes. Computed tomography scan of the abdomen did show hepatomegaly and steatosis. Current Visit: Yes Status: Acute Code(s): K70.9 - ALCOHOLIC LIVER DISEASE, UNSPECIFIED SNOMED Code(s): 61344187 (4) GI bleed Current Visit: Yes Status: Acute Code(s): K92.2 - GASTROINTESTINAL HEMORRHAGE, UNSPECIFIED SNOMED Code(s): 51707394 Plan: 1. Supportive care 2. Continue full liquid diet, will consider advancement once lipase is resulted 3. Alcohol abstinence 4. Continue CIWA protocol 5. Repeat CBC, CMP, lipase tomorrow We will continue to follow Dr. Shari Hayes I agree with the dictator's note, documented as a scribe by Carol Schultz.
[2020-10-10 07:26] VITALS: BP 120/82; PULSE 114; RESP 18; TEMP 98.3
[2020-10-10 07:32] LABS: HCT 28.8 % (39.0-53.0); HGB 10.1 gm/dL (13.0-17.5); MCH 36.7 pg (25.0-35.0); MCHC 35.2 g/dL (31.0-37.0); MCV 104.3 fL (80.0-100.0); Macrocytosis Slight; Mean Platelet Volume 7.1; RBC 2.76 m/uL (4.30-5.90); RDW 14.8 % (11.5-15.5); WBC 3.6 k/uL (3.8-10.6)
[2020-10-10 07:48] LABS: Platelet Count 138 k/uL (150-450)
[2020-10-10] MEDS: PANTOPRAZOLE 40 MG/10 ML VIAL IV SCH (08:01)
[2020-10-10] MEDS: SUCRALFATE 1 GM TAB PO SCH ×2 (08:02→13:17)
[2020-10-10] MEDS: THIAMINE 100 MG TAB PO SCH (08:02)
[2020-10-10 08:23] LABS: Lymphocytes # (M) 0.86 k/uL (1.0-4.8); Monocytes # (M) 0.43 k/uL (0-1.0); Neutrophils % (M) 64 %; Nucleated Red Blood Cells 0 /100 WBC (0-0); Total Cells Counted 100
[2020-10-10 08:26] LABS: Polychromasia Present
--- NOTE | 2020-10-10 10:15 | P.PN ---
Subjective Progress Note Date: 10/10/20 Principal diagnosis: Abdominal pain, pancreatitis This is a 55-year-old male who came into the emergency room with abdominal pain, acute alcohol intoxication and dehydration. Was found to have an elevated lipase consistent with acute pancreatitis. While he was admitted in the hospital he had fall in his room and it was reported that he had some blood from the rectum/stool. He underwent an upper endoscopy. He is on Protonix twice a day and Carafate 4 times a day. Today he states he has no abdominal pain, no nausea, no vomiting. He is on CIWA protocol he appears still very shaky today. States he is having some anxiety. Lipasefrom yesterday 308. Tolerating his full liquid diet. Objective - Vital Signs Vital signs: Vital Signs Temp 98.3 F 10/10/20 07:25 Pulse 114 H 10/10/20 07:25 Resp 18 10/10/20 07:25 BP 120/82 10/10/20 07:25 Pulse Ox 95 10/10/20 07:25 Intake & Output 10/09/20 10/10/20 10/10/20 18:59 06:59 18:59 Output Total 600 Balance -600 Output: Urine 600 Other: Voiding Method Urinal Toilet Urinal - Exam General appearance: The patient is alert, oriented, appears in no acute distress. HET: Head is normocephalic and atraumatic. Conjunctiva pink. Sclera anicteric. Neck: Supple without lymphadenopathy. Abdomen: Soft, nontender, nondistended with bowel sounds. No guarding or rigidity. Extremities: Normal skin color and turgor. No pedal edema Neurological: No focal deficits. Alert and oriented 3. - Labs CBC & Chem 7: 10/10/20 06:24 10/09/20 14:57 Labs: Abnormal Lab Results - Last 24 Hours (Table) 10/09/20 10/10/20 Range/Units 06:01 06:24 WBC 3.6 L (3.8-10.6) k/uL RBC 2.76 L (4.30-5.90) m/uL Hgb 10.1 L (13.0-17.5) gm/dL Hct 28.8 L (39.0-53.0) % MCV 104.3 H (80.0-100.0) fL MCH 36.7 H (25.0-35.0) pg Plt Count 138 L D (150-450) k/uL Lymphocytes # (Manual) 0.86 L (1.0-4.8) k/uL Lipase 308 H (14-60) U/L Assessment and Plan (1) Acute pancreatitis Narrative/Plan: 55-year-old male with a history of heavy alcohol abuse presenting for decreased oral intake. He reported decreased oral intake in association with some abdominal pain and nausea and vomiting. Found to have markedly elevated lipase of 6047 on presentation the patient was admitted for treatment of acute pancreatitis and alcohol withdrawal. On the medical floor the patient was found on the floor of his room and subsequently had bloody bowel movements. Initially bright red blood per rectum, subsequent bowel movements have been maroon and now darker in color. No hematemesis or coffee-ground emesis noted. Unclear etiology, patient likely has alcoholic liver disease and possible cirrhosis although symptoms are not suggestive of a variceal bleed, plan is for EGD to rule out peptic ulcer disease or other upper GI source of blood loss, may also be related to lower GI bleed from diverticula, AVM or other etiology. Patient is status post EGD which showed diminutive nonbleeding duodenal ulcer without high-risk stigmata for bleeding, moderate duodenitis, mild gastritis, LA grade C esophagitis. Current Visit: Yes Status: Acute Code(s): K85.90 - ACUTE PANCREATITIS WITHOUT NECROSIS OR INFECTION, UNSP SNOMED Code(s): 028963181 (2) Alcoholic intoxication Current Visit: Yes Status: Acute Code(s): F10.929 - ALCOHOL USE, UNSPECIFIED WITH INTOXICATION, UNSPECIFIED SNOMED Code(s): 20922334 (3) Alcoholic liver disease Narrative/Plan: Elevated liver enzymes in the setting of chronic heavy alcohol abuse, suspect a degree of underlying liver disease and probable cirrhosis given thrombocytopenia and elevation of liver enzymes. Computed tomography scan of the abdomen did show hepatomegaly and steatosis. Current Visit: Yes Status: Acute Code(s): K70.9 - ALCOHOLIC LIVER DISEASE, UNSPECIFIED SNOMED Code(s): 51254408 (4) GI bleed Current Visit: Yes Status: Acute Code(s): K92.2 - GASTROINTESTINAL HEMORRHAGE, UNSPECIFIED SNOMED Code(s): 21288282 Plan: 1. Supportive care 2. Advance to low fiber diet 3. Alcohol abstinence 4. Continue CIWA protocol Again it was discussed with the patient for complete alcohol abstinence otherwise likelihood is we'll continue to have recurrent episodes of pancreatitis and liver failure. Patient states he is agreeable. The patient may be discharged home from a gastroenterology standpoint if he is able to tolerate solids. Dr. Shari Hayes I agree with the dictator's note, documented as a scribe by Carol Schultz.
--- NOTE | 2020-10-10 11:23 | P.PN ---
Subjective Progress Note Date: 10/10/20 55-year-old male, heavy alcohol abuser, who presented to the emergency room, via EMS, on October 05. He apparently had not been eating or drinking very much at all. He does continue to consume 1 pint of 5 Or whiskey a day. 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 He was admitted to the general medical floor on the , and on the , he came to the ICU. He has used cocaine and marijuana in the past, and apparently is a heavy drinker as mentioned above. He currently does not smoke cigar On today's evaluation of 10/09/2020, the patient is alert and awake. His communicating. A bit shaky. He is oriented to place and people. He moved here from [place]. His lipase level is improving. His hemoglobin is stable. He had a significant drop in hemoglobin. EGD was done and it showed nonbleeding duodenal ulcer without high risk of stigmata for bleeding. He had moderate duod enitis, mild gastritis, grade C esophagitis. Biopsies were taken. For now, he had a breakfast this morning. No nausea. No vomiting. No diarrhea. No abdominal pain. No respiratory distress. Platelets are low related to various chronic alcohol drinking. He is on D5W at the rate of 100 mL an hour. He is also on thiamine. His evaluation of 10/10/2020, the patient is being seen for a follow-up. He was slightly shaky yesterday and the patient was having some tremors related to his chronic alcoholism. He tells me that he is ready to go home today. He is feeling better. His lipase level was improving. No signs of any GI bleeding. He is having is stable hemoglobin of 10.1. Platelet count is up to 138. His lipase level was down to 308 from yesterday. He is afebrile. His pulse is on 95% on room air oxygen. No other significant events overnight. The patient is on thiamine with meals. He is tolerating his diet. No respiratory distress. Objective - Vital Signs Vital signs: Vital Signs Temp 98.3 F 10/10/20 07:25 Pulse 114 H 10/10/20 07:25 Resp 18 10/10/20 07:25 BP 120/82 10/10/20 07:25 Pulse Ox 95 10/10/20 07:25 Intake & Output 10/09/20 10/10/20 10/10/20 18:59 06:59 18:59 Output Total 600 Balance -600 Output: Urine 600 Other: Voiding Method Urinal Toilet Urinal - Exam No acute distress, oriented 3. The patient appears much more comfortable and stable today. HEENT examination is grossly unremarkable. Mucous membranes are moist. No oral lesions. Neck supple. Full range of motion. No adenopathy thyromegaly or neck vein distention. Cardiovascular examination reveals regular rhythm rate. S1-S2 normal. No S3 or S4. No discernible murmur noted. Heart rate is 112 bpm. Lungs reveal clear breath sounds. Her sounds are equal bilaterally. No adventitious lung sounds including wheezes rhonchi or crackles. Abdomen soft bowel sounds are heard. No masses or tenderness. Extremities are intact. No cyanosis clubbing or edema. Skin is without rash or lesion. Neurologic examination is brief but nonfocal. A slight tremor is noted. - Labs CBC & Chem 7: 10/10/20 06:24 10/09/20 14:57 Labs: Abnormal Lab Results - Last 24 Hours (Table) 10/09/20 10/10/20 Range/Units 06:01 06:24 WBC 3.6 L (3.8-10.6) k/uL RBC 2.76 L (4.30-5.90) m/uL Hgb 10.1 L (13.0-17.5) gm/dL Hct 28.8 L (39.0-53.0) % MCV 104.3 H (80.0-100.0) fL MCH 36.7 H (25.0-35.0) pg Plt Count 138 L D (150-450) k/uL Lymphocytes # (Manual) 0.86 L (1.0-4.8) k/uL Lipase 308 H (14-60) U/L Assessment and Plan Plan: Alcohol withdrawal syndrome in a patient who has a history of alcohol abuse. She is mental status improved Alcoholic pancreatitis. Clinically the patient is improved Possible GI bleed, secondary to alcoholic gastritis or esophagitis. Please refer to the EGD results that showed esophagitis and gastritis and duodenal ulcer that was not showing any of bleeding. The patient had a drop in hemoglobin during this current hospitalization. Status post EGD, 10/08/2020, with esophagitis, gastritis, and duodenal ulcer, without active bleeding. Recent fall, with negative brain scan. Lactic acidosis, improved. Mild hyperbilirubinemia. Mild alcohol-induced coagulopathy. Prerenal azotemia. Chronic anemia. Thrombocytopenia, secondary to alcohol-induced bone marrow suppression. Hypotension, resolved, with IV fluids.Hypotension recovered Plan: 3 improving. Symptoms of delirium tremens is also improvement and the patient is not having any signs of GI bleed tolerating his diet and is tolerating his d iet. Continue thiamine. Continue Protonix. Platelet counts are improving. Neurologically stable. Hemoglobin is stable. Possible discharge home today. Pulmonary critical care services.
[2020-10-10 11:26] LABS: Albumin 3.2 g/dL (3.80-4.90); Albumin/Globulin Ratio 1.52 (1.60-3.17); Anion Gap 11.6 mmol/L (4.00-12.00); BUN/Creat Ratio 12.86 Ratio (12.00-20.00); Calcium 8.6 mg/dL (8.7-10.3); Carbon Dioxide 24.4 mmol/L (21.6-31.8); Globulin 2.1 g/dL (1.6-3.3); Potassium 3.9 mmol/L (3.5-5.5); Total Bilirubin 1.2 mg/dL (0.3-1.2); Total Protein 5.3 g/dL (6.2-8.2)
== END 2020-10-10 15:25 | disposition home or self-care (01) | DRG 896 ==
LOC: EC 11:35 → 4SSUR 14:19 → 2SICU 10-06 23:47 → 4SSUR 10-08 14:20
PROVIDERS: ADMIT Internal Medicine; ATTEND Internal Medicine
PROC: 0DB78ZX Excision of Stomach, Pylorus, Via Natural or Artificial Opening Endoscopic, Diagnostic (ICD-10-PCS; 2020-10-08)
PROC: 0DB98ZX Excision of Duodenum, Via Natural or Artificial Opening Endoscopic, Diagnostic (ICD-10-PCS; principal; 2020-10-08 08:00)
DX: F10.220 Alcohol dependence with intoxication, uncomplicated (principal); K85.90 Acute pancreatitis without necrosis or infection, unspecified; K29.81 Duodenitis with bleeding; K29.71 Gastritis, unspecified, with bleeding; K20.91 Esophagitis, unspecified with bleeding; E87.2 Acidosis; D68.8 Other specified coagulation defects; D62 Acute posthemorrhagic anemia; K26.9 Duodenal ulcer, unspecified as acute or chronic, without hemorrhage or perforation; K70.10 Alcoholic hepatitis without ascites; D69.59 Other secondary thrombocytopenia; I95.9 Hypotension, unspecified; F12.10 Cannabis abuse, uncomplicated; F10.231 Alcohol dependence with withdrawal delirium; G40.909 Epilepsy, unspecified, not intractable, without status epilepticus; E86.0 Dehydration; R00.0 Tachycardia, unspecified; F41.9 Anxiety disorder, unspecified; Y92.230 Patient room in hospital as the place of occurrence of the external cause; Y90.8 Blood alcohol level of 240 mg/100 ml or more; W18.30XA Fall on same level, unspecified, initial encounter; Z71.3 Dietary counseling and surveillance; Z96.60 Presence of unspecified orthopedic joint implant; Z77.22 Contact with and (suspected) exposure to environmental tobacco smoke (acute) (chronic)
CPT/HCPCS: 36415; 43239; 70450; 70460; 71046; 74176; 80048; 80053; 80306; 80320; 82140; 82550; 82553; 83605; 83690; 83735; 84132; 85025; 85610; 88305; 93005; 96361; 96365; 96366; 96372; 96375; 96376; 99285

== ENCOUNTER 2020-12-26 08:39 | Inpatient (IN) | payer OTHER ==
[2020-12-26] MEDS ORDERED: SODIUM CHLORIDE 0.9% 1,000 ML IV STA ×2 (09:03→10:59)
[2020-12-26] MEDS ORDERED: LORazepam 2 MG/ML INJ IV PRN (09:29)
[2020-12-26] MEDS ORDERED: THIAMINE 100 MG/ML 2 ML VIAL IM STA (09:29)
--- NOTE | 2020-12-26 09:32 | ED ---
General Adult HPI - General Chief complaint: Nausea/Vomiting/Diarrhea Stated complaint: Vomiting Time Seen by Provider: 12/26/20 09:02 Source: patient, family Mode of arrival: wheelchair Limitations: no limitations - History of Present Illness Initial comments: Dictation was produced using [employer] dictation software. please excuse any grammatical, word or spelling errors. This patient was cared for during a federal and state declared state of em ergency secondary to Covid 19 Chief Complaint: 55-year-old male past nuchal history of depression, seizure disorder and panic otitis presents today with 3 days of vomiting History of Present Illness: 55-year-old male who presents to the emergency department for persistent vomiting. He also has some abdominal pain. Denies any history of abdominal surgery. Patient has a history of panic otitis. He states that the last time he had symptoms like this he was diagnosed with pancreatitis. Patient is a regular alcoholic. He has been admitted for withdrawals in the past. Patient's last alcoholic beverage was around 48 hours ago. Patient states that his abdominal pain he believes is from vomiting. States that his emesis is nonbloody and nonbilious. The ROS documented in this emergency department record has been reviewed and confirmed by me. Those systems with pertinent positive or negative responses have been documented in the HPI. All other systems are other negative and/or noncontributory. PHYSICAL EXAM: General Impression: Alert and oriented x3, shaky, tremulous HEENT: Normocephalic atraumatic, extra-ocular movements intact, pupils equal and reactive to light bilaterally, dry me his membranes Cardiovascular: Heart regular rate and rhythm Chest: Able to complete full sentences, no retractions, no tachypnea Abdomen: abdomen soft, non-tender, non-distended, no organomegaly Musculoskeletal: Pulses present and equal in all extremities, no peripheral edema Motor: no focal deficits noted Neurological: CN II-XII grossly intact, no focal motor or sensory deficits noted Skin: Intact with no visualized rashes Psych: Normal affect and mood ED course: 55-year-old male presents to the emergency department for persistent nausea. Vital signs upon arrival shows heart rate of 153, rest of vital signs within acceptable limits. Patient showing physical exam features concerning for alcohol withdrawal. Patient's shows signs of severe withdrawal. He however is alert and oriented 4. Is not having any symptoms of altered mental status or confusion. He is tachycardic. Laboratory evaluation obtained. CBC is within acceptable limits. Patient has a, cytopenia 86 is likely from alcoholism. Metabolic panel shows anion gap acidosis with a lactic acidosis of 2.8. He has elevated liver enzymes. Lipase is 387. Initial lactic acid is 2.8. Reflex lactic acid is 1.5. Patient is positive for acetone appears alcohol is negative. Patient has a slight osmolal gap this is likely secondary to ketoacidosis. Patient still persistently tachycardic however improved with intravenous fluids and Ativan administration. Patient will be admitted to the ICU. Given current hospital bed availability. Patient will be boarded in the emergency department for the time being. Case is discussed with Dr. Nolan who is willing to accept patients care. EKG interpretation: Ventricular rate 140, sinus tachycardia, VA interval 96, QRS 78, QTC 543. - Related Data Home Medications Medication Instructions Recorded Confirmed DULoxetine HCL [Cymbalta] 20 mg PO BID 12/26/20 12/26/20 Ondansetron [Zofran] 4 mg PO Q8HR PRN 12/26/20 12/26/20 Pantoprazole Sodium [Protonix] 40 mg PO DAILY 12/26/20 12/26/20 Propranolol [Inderal] 10 mg PO DAILY PRN 12/26/20 12/26/20 Allergies Allergy/AdvReac Type Severity Reaction Status Date / Time No Known Allergies Allergy Verified 12/26/20 10:14 Review of Systems ROS Statement: Those systems with pertinent positive or pertinent negative responses have been documented in the HPI. ROS Other: All systems not noted in ROS Statement are negative. Past Medical History Past Medical History: Seizure Disorder Additional Past Medical History / Comment(s): pancreatitis History of Any Multi-Drug Resistant Organisms: None Reported Past Surgical History: Joint Replacement, Orthopedic Surgery Past Anesthesia/Blood Transfusion Reactions: No Reported Reaction Past Psychological History: No Psychological Hx Reported Smoking Status: Never smoker, Second hand smoke exposure Past Alcohol Use History: Abuse, Heavy Past Drug Use History: Cocaine, Marijuana General Exam Limitations: no limitations Course Vital Signs 12/26/20 12/26/20 12/26/20 08:53 11:01 12:26 Temperature 98.6 F Pulse Rate 153 H 151 H 148 H Respiratory 18 24 20 Rate Blood Pressure 132/94 120/90 115/78 O2 Sat by Pulse 99 97 97 Oximetry 12/26/20 13:40 Temperature Pulse Rate 139 H Respiratory 20 Rate Blood Pressure 125/102 O2 Sat by Pulse Oximetry Medical Decision Making - Lab Data Result diagrams: 12/26/20 09:32 12/26/20 09:32 Lab Results 12/26/20 12/26/20 12/26/20 Range/Units 09:32 09:32 09:32 WBC 6.8 (3.8-10.6) k/uL RBC 5.03 (4.30-5.90) m/uL Hgb 14.2 (13.0-17.5) gm/dL Hct 42.1 (39.0-53.0) % MCV 83.7 (80.0-100.0) fL MCH 28.3 (25.0-35.0) pg MCHC 33.9 (31.0-37.0) g/dL RDW 17.6 H (11.5-15.5) % Plt Count 86 L (150-450) k/uL MPV 7.8 Neutrophils % 76 % Lymphocytes % 5 % Monocytes % 12 % Eosinophils % 0 % Basophils % 0 % Neutrophils # 5.2 (1.3-7.7) k/uL Lymphocytes # 0.4 L (1.0-4.8) k/uL Monocytes # 0.8 (0-1.0) k/uL Eosinophils # 0.0 (0-0.7) k/uL Basophils # 0.0 (0-0.2) k/uL Manual Slide Review Performed Hypochromasia (manual) Present Anisocytosis Slight Sodium 133 L (137-145) mmol/L Potassium 3.8 (3.5-5.1) mmol/L Chloride 88 L (98-107) mmol/L Carbon Dioxide 17 L (22-30) mmol/L Anion Gap 28 mmol/L BUN 23 H (9-20) mg/dL Creatinine 1.33 H (0.66-1.25) mg/dL Est GFR (CKD-EPI)AfAm 70 (>60 ml/min/1.73 sqM) Est GFR (CKD-EPI)NonAf 61 (>60 ml/min/1.73 sqM) Glucose 190 H (74-99) mg/dL Osmolality (280-301) mosm/kg Lactic Ac Sepsis Rflx Plasma Lactic Acid Nawaf 2.8 H* (0.7-2.0) mmol/L Calcium 10.4 H (8.4-10.2) mg/dL Magnesium 1.5 L (1.6-2.3) mg/dL Total Bilirubin 1.5 H (0.2-1.3) mg/dL AST 92 H (17-59) U/L ALT 67 H (4-49) U/L Alkaline Phosphatase 91 (38-126) U/L C-Reactive Protein 21.1 H (<10.0) mg/L Total Protein 9.1 H (6.3-8.2) g/dL Albumin 5.3 H (3.5-5.0) g/dL Lipase 387 H (23-300) U/L Serum Alcohol mg/dL Acetone, Qual (Negative) Coronavirus (PCR) (Not Detectd) 12/26/20 12/26/20 12/26/20 Range/Units 09:32 09:38 10:14 WBC (3.8-10.6) k/uL RBC (4.30-5.90) m/uL Hgb (13.0-17.5) gm/dL Hct (39.0-53.0) % MCV (80.0-100.0) fL MCH (25.0-35.0) pg MCHC (31.0-37.0) g/dL RDW (11.5-15.5) % Plt Count (150-450) k/uL MPV Neutrophils % % Lymphocytes % % Monocytes % % Eosinophils % % Basophils % % Neutrophils # (1.3-7.7) k/uL Lymphocytes # (1.0-4.8) k/uL Monocytes # (0-1.0) k/uL Eosinophils # (0-0.7) k/uL Basophils # (0-0.2) k/uL Manual Slide Review Hypochromasia (manual) Anisocytosis Sodium (137-145) mmol/L Potassium (3.5-5.1) mmol/L Chloride (98-107) mmol/L Carbon Dioxide (22-30) mmol/L Anion Gap mmol/L BUN (9-20) mg/dL Creatinine (0.66-1.25) mg/dL Est GFR (CKD-EPI)AfAm (>60 ml/min/1.73 sqM) Est GFR (CKD-EPI)NonAf (>60 ml/min/1.73 sqM) Glucose (74-99) mg/dL Osmolality 300 (280-301) mosm/kg Lactic Ac Sepsis Rflx Y Plasma Lactic Acid Nawaf (0.7-2.0) mmol/L Calcium (8.4-10.2) mg/dL Magnesium (1.6-2.3) mg/dL Total Bilirubin (0.2-1.3) mg/dL AST (17-59) U/L ALT (4-49) U/L Alkaline Phosphatase (38-126) U/L C-Reactive Protein (<10.0) mg/L Total Protein (6.3-8.2) g/dL Albumin (3.5-5.0) g/dL Lipase (23-300) U/L Serum Alcohol mg/dL Acetone, Qual Positive (Negative) Coronavirus (PCR) Not Detected (Not Detectd) 12/26/20 12/26/20 Range/Units 12:51 13:38 WBC (3.8-10.6) k/uL RBC (4.30-5.90) m/uL Hgb (13.0-17.5) gm/dL Hct (39.0-53.0) % MCV (80.0-100.0) fL MCH (25.0-35.0) pg MCHC (31.0-37.0) g/dL RDW (11.5-15.5) % Plt Count (150-450) k/uL MPV Neutrophils % % Lymphocytes % % Monocytes % % Eosinophils % % Basophils % % Neutrophils # (1.3-7.7) k/uL Lymphocytes # (1.0-4.8) k/uL Monocytes # (0-1.0) k/uL Eosinophils # (0-0.7) k/uL Basophils # (0-0.2) k/uL Manual Slide Review Hypochromasia (manual) Anisocytosis Sodium (137-145) mmol/L Potassium (3.5-5.1) mmol/L Chloride (98-107) mmol/L Carbon Dioxide (22-30) mmol/L Anion Gap mmol/L BUN (9-20) mg/dL Creatinine (0.66-1.25) mg/dL Est GFR (CKD-EPI)AfAm (>60 ml/min/1.73 sqM) Est GFR (CKD-EPI)NonAf (>60 ml/min/1.73 sqM) Glucose (74-99) mg/dL Osmolality (280-301) mosm/kg Lactic Ac Sepsis Rflx Plasma Lactic Acid Nawaf 1.5 (0.7-2.0) mmol/L Calcium (8.4-10.2) mg/dL Magnesium (1.6-2.3) mg/dL Total Bilirubin (0.2-1.3) mg/dL AST (17-59) U/L ALT (4-49) U/L Alkaline Phosphatase (38-126) U/L C-Reactive Protein (<10.0) mg/L Total Protein (6.3-8.2) g/dL Albumin (3.5-5.0) g/dL Lipase (23-300) U/L Serum Alcohol <10 mg/dL Acetone, Qual (Negative) Coronavirus (PCR) (Not Detectd) Disposition Clinical Impression: Alcohol withdrawal Disposition: ADMITTED IP TO THIS HOSP Condition: Critical Referrals: None,Stated [Primary Care Provider] - 1-2 days Decision Time: 14:39
[2020-12-26] MEDS: LORazepam 2 MG/ML INJ IV PRN ×3 (09:50→15:04)
[2020-12-26 10:07] LABS: Albumin 5.3 g/dL (3.5-5.0); C Reactive Protein 21.1 mg/L (<10.0); Calcium 10.4 mg/dL (8.4-10.2); Magnesium 1.5 mg/dL (1.6-2.3); Potassium 3.8 mmol/L (3.5-5.1); Total Bilirubin 1.5 mg/dL (0.2-1.3); Total Protein 9.1 g/dL (6.3-8.2)
[2020-12-26 10:25] LABS: Anisocytosis Slight; Basophils % (A) 0 %; Eosinophils % (A) 0 %; HCT 42.1 % (39.0-53.0); HGB 14.2 gm/dL (13.0-17.5); Lymphocytes # (A) 0.4 k/uL (1.0-4.8); Lymphocytes % (A) 5 %; MCH 28.3 pg (25.0-35.0); MCHC 33.9 g/dL (31.0-37.0); MCV 83.7 fL (80.0-100.0); Mean Platelet Volume 7.8; Monocytes # (A) 0.8 k/uL (0-1.0); Monocytes % (A) 12 %; Neutrophils # (A) 5.2 k/uL (1.3-7.7); Neutrophils % (A) 76 %; RBC 5.03 m/uL (4.30-5.90); RDW 17.6 % (11.5-15.5); WBC 6.8 k/uL (3.8-10.6)
--- NOTE | 2020-12-26 10:47 | XR ---
EXAMINATION TYPE: XR chest 1V portable DATE OF EXAM: 12/26/2020 HISTORY: Shortness of breath. COMPARISON: 10/05/2020 TECHNIQUE: Single view of the chest is submitted. FINDINGS: Demonstrated are scattered senescent parenchymal change. There is no evidence for focal infiltrate. The heart is stable. Hilar and mediastinal structures are within normal limits. Degenerative changes are seen of the dorsal spine. IMPRESSION: 1. Chronic changes without evidence for acute pulmonary disease.
[2020-12-26 11:07] LABS: Platelet Count 86 k/uL (150-450)
[2020-12-26 11:12] LABS: Hypochromasia (M) Present
[2020-12-26] MEDS ORDERED: NALOXONE 0.4 MG/ML 1 ML VIAL IV PRN (14:36)
[2020-12-26] MEDS ORDERED: ACETAMINOPHEN TAB 325 MG TAB PO PRN (14:36)
[2020-12-26] MEDS ORDERED: DILTIAZEM DRIP BOLUS FROM BAG 1 MG SOLN IV ONE (15:01)
[2020-12-26] MEDS ORDERED: HEPARIN SODIUM 1,000 UN/ML (10ML VL) IV ONE (15:07)
[2020-12-26] MEDS ORDERED: HEPARIN SODIUM 1,000 UN/ML (10ML VL) IV PRN (15:07)
[2020-12-26] MEDS: MAGNESIUM SULFATE-D5W PMX 1 GM in DEXTROSE/WATER 1 100ML.BAG IVPB SCH ×2 (15:09→15:49)
[2020-12-26] MEDS: SODIUM CHLORIDE 0.9% 1,000 ML IV SCH (15:09)
[2020-12-26] MEDS ORDERED: HEPARIN SOD,PORK IN 0.45% NACL 25,000 UNIT in 0.45% NACL 1 250ML.BAG IV SCH (15:15)
[2020-12-26] MEDS: DILTIAZEM 125 MG in SODIUM CHLORIDE 0.9% 100 ML IV SCH (15:17)
[2020-12-26] MEDS ORDERED: ONDANSETRON 4 MG/2 ML VIAL IVP PRN (15:45)
--- NOTE | 2020-12-26 15:56 | P.CNPUL ---
History of Present Illness Consult date: 12/26/20 Reason for consult: other Chief complaint: Alcohol withdrawal. Atrial fibrillation with RVR. History of present illness: 55-year-old male that I'm asked to see in the emergency department for alcohol withdrawal syndrome. The patient apparently presents to the emergency department, today, with possible alcohol withdrawal syndrome. His last alcoholic beverages 48 hours ago. The patient has a prior history of alcohol withdrawal syndrome and prior admissions. The patient also has a diagnosis of alcoholic pancreatitis, as well as seizure disorder, and depression. Currently, the patient's on a Cardizem drip because of atrial fibrillation. The patient got 10 mg IV push, and then a drip at 5 mg an hour. Currently, he is not in any supplemental oxygen. His [place] currently, as he's been getting Ativan per the [facility] protocol. Laboratory data includes a white count 6.8, he will 14.2, hematocrit 42.1, and platelet count 86,000. Sodium 133, potassium 3.8, chloride 88, CO2 17, anion gap is 28, BUN and creatinine were 23 and 1.33. Lactic acid was 2.3. Calcium 10.4, magnesium 1.5, bilirubin 1.5, and AST ALT were 92 and 67 respectively. Lipase was 387. He was checked for coronavirus, but the test was negative. The chest x-ray was negative for any acute disease. Review of Systems REVIEW OF SYSTEMS: CONSTITUTIONAL: Nausea and vomiting. NEUROLOGIC: [ Negative.] HEENT: [ Negative.] CARDIAC: [Negative.] PULMONARY: [Negative.] GI: Abdominal pain. Vomiting. : [Negative.] RHEUMATOLOGIC: [ Negative.] IMMUNOLOGIC: [ Negative.] ENDOCRINE: [Negative. ] DERMATOLOGIC: [Negative.] Past Medical History Past Medical History: Seizure Disorder Additional Past Medical History / Comment(s): pancreatitis History of Any Multi-Drug Resistant Organisms: None Reported Past Surgical History: Joint Replacement, Orthopedic Surgery Past Anesthesia/Blood Transfusion Reactions: No Reported Reaction Past Psychological History: No Psychological Hx Reported Smoking Status: Never smoker, Second hand smoke exposure Past Alcohol Use History: Abuse, Heavy Past Drug Use History: Cocaine, Marijuana Medications and Allergies Home Medications Medication Instructions Recorded Confirmed Type DULoxetine HCL [Cymbalta] 20 mg PO BID 12/26/20 12/26/20 History Ondansetron [Zofran] 4 mg PO Q8HR PRN 12/26/20 12/26/20 History Pantoprazole Sodium [Protonix] 40 mg PO DAILY 12/26/20 12/26/20 History Propranolol [Inderal] 10 mg PO DAILY PRN 12/26/20 12/26/20 History Allergies Allergy/AdvReac Type Severity Reaction Status Date / Time No Known Allergies Allergy Verified 12/26/20 10:14 Physical Exam Osteopathic Statement: *. No significant issues noted on an osteopathic structural exam other than those noted in the History and Physical/Consult. Vitals: Vital Signs Temp Pulse Resp BP Pulse Ox 12/26/20 14:54 149 H 22 108/77 96 12/26/20 13:40 139 H 20 125/102 12/26/20 12:26 148 H 20 115/78 97 12/26/20 11:01 151 H 24 120/90 97 12/26/20 08:53 98.6 F 153 H 18 132/94 99 Intake and Output 12/26/20 12/26/20 12/26/20 06:59 14:59 22:59 Other: Weight 79.379 kg Somnolent, room air saturations are mid 90s. Patient just received Ativan. HEENT examination is grossly unremarkable. Neck supple. Full range of motion. No adenopathy thyromegaly or neck vein distention. Cardiovascular examination reveals an irregular rhythm and rate. S1-S2 normal. No S3 or S4. No discernible murmur noted. Heart rate about 133 bpm. Lungs reveal clear breath sounds. Her sounds are equal bilaterally. No adventitious lung sounds including wheezes rhonchi or crackles. Abdomen soft bowel sounds are heard. No masses or tenderness. Extremities are intact. No cyanosis clubbing or edema. Skin is without rash or lesion. Neurologic examination is brief but nonfocal. Results - Laboratory Findings CBC and BMP: 12/26/20 09:32 12/26/20 09:32 Abnormal lab findings: Abnormal Labs 12/26/20 12/26/20 12/26/20 09:32 09:32 09:32 RDW 17.6 H Plt Count 86 L Lymphocytes # 0.4 L Sodium 133 L Chloride 88 L Carbon Dioxide 17 L BUN 23 H Creatinine 1.33 H Glucose 190 H Plasma Lactic Acid Nawaf 2.8 H* Calcium 10.4 H Magnesium 1.5 L Total Bilirubin 1.5 H AST 92 H ALT 67 H C-Reactive Protein 21.1 H Total Protein 9.1 H Albumin 5.3 H Lipase 387 H - Diagnostic Findings Chest x-ray: image reviewed Assessment and Plan Assessment: Confusion/mental status changes, and agitation, consistent with alcohol withdrawal syndrome. History of chronic alcohol abuse. History of alcoholic pancreatitis. Anion gap metabolic acidosis. History of seizure disorder. Prior history of drug abuse including cocaine and marijuana. Plan: Plan dated 12/26/2020. Currently, the patient's in the emergency room. He is resting comfortably. He has received some Ativan per the [facility] protocol. In addition, the patient just developed atrial fibrillation with RVR. He received Cardizem 10 mg IV push, and started on a Cardizem drip at 5 mg an hour. The patient may need an ICU bed. A lot will depend on how much Ativan he requires. Initially, he was very agitated but now he seems very calm. Additional recommendations and suggestions are forthcoming. I would think a cardiology consultation will be in order. We'll continue to follow. Time with Patient: Greater than 30
[2020-12-26] MEDS ORDERED: METOPROLOL TARTRATE 5 MG/5 ML VIAL IVP STA (16:10)
--- NOTE | 2020-12-26 16:26 | P.HPIM ---
<Pola Cortes - Last Filed: 12/26/20 16:29> History of Present Illness H&P Date: 12/26/20 Chief Complaint: Alcohol withdrawal resulting in nausea, vomiting, and diarrhea History of presenting illness: Patient is a 55-year-old male with a past medical history of EtOH use/abuse reportedly drinking a minimum of 1 pint of vodka daily along with beer with h istory of previous withdrawal seizures, pancreatitis, depression, and anxiety. Patient presented to the emergency department with a chief complaint of abdominal pain, nausea, vomiting, and diarrhea. As stated above patient reports drinking a minimum of 1 pint of vodka daily with last reported alcoholic beverage being approximately 48 hours ago. Patient was seen and fully evaluated in the emergency department resulting in diagnosis of atrial fibrillation with RVR, alcoholic ketoacidosis with acute alcohol withdrawal resulting in admission to ICU under our services with consultation to director of customer service-Dr. Mills and human factors ergonomist-Dr. Stephen. Chest x-ray completed revealing chronic changes witho ut evidence for acute cardiopulmonary process. EKG revealing sinus tachycardia at 148 bpm with no noted T-wave or ST abnormalities. CBC unremarkable. BMP revealing hyponatremia with sodium of 133 and hypochloremia with chloride of 88 and acute kidney injury with BUN 23, creatinine 1.33, and GFR of 61, (previous labs done on 10/10/20 revealed BUN 9, creatinine 0.7, and GFR 107). Initial lactate of 2.8 with repeat lactate of 1.5. Serum alcohol level less than 10. Covid 19 PCR negative. Liver enzymes elevated with AST 92, ALT 67, and alkaline phosphatase 91. Lipase also elevated at 387. Patient seen and evaluated at the bedside. His mother was also at bedside. Patient reports daily drinking since the age of 17 with previous complicated alcohol withdrawals and withdrawal seizures. Patient denies ever needing intubated during withdrawal. Patient states he began experiencing diffuse abdominal pain accompanied by nausea and vomiting shortly after last alcoholic beverage 48 hours ago. Patient reports persistent intractable nausea with repeated episodes of nonbilious/nonbloody joe sis. Patient denies having any fevers, chills, diaphoresis, headache, lightheadedness, dizziness, changes in vision or hearing, chest pain or palpitations, shortness of breath, cough or congestion, or experiencing any weakness/numbness/tingling in extremities. Review of systems: Pertinent positives and negatives as discussed in HPI, a complete review of systems was performed and all other systems are negative. Physical exam: General: appears at stated age, showing signs of acute distress secondary to acute alcohol withdrawal Derm: warm, diaphoretic Head: atraumatic, normocephalic, symmetric Eyes: Pupils equal and reactive 5 mm to 3 mm, EOMI, no lid lag, anicteric sclera Mouth: no lip lesion, mucus membranes dry and pasty Cardiovascular: S1-S2 normal, regular rhythm with tachycardic rate, no murmur, positive posterior tibial pulses bilaterally, no edema,, cap refill less than 2 seconds. Lungs: Respirations even, regular, and unlabored. Lungs CTA bilaterally, no rhonchi, no rales, no wheezes and no accessory muscle use Abdominal: soft, nontender to palpation, no guarding, no appreciable organomegaly Ext: no gross muscle atrophy, no edema, no contractures Neuro: GCS 15. Speech clear. CN II-XII grossly intact, tremors noted Psych: Alert, oriented, appropriate affect Assessment and Plan of care: Atrial fibrillation with RVR -Patient diagnosed with atrial fibrillation with RVR in the emergency department and started on anticoagulation with heparin. -He was given Cardizem bolus followed by infusion. -Continue heparin, pharmacy to dose -Continue Cardizem infusion for rate control -Order placed for Lopressor 5 mg IVP 1 dose -Continuous telemetry monitoring -Cardiology consult, appreciate recommendations. -Replacement of electrolyte abnormalities. -Treatment for acute alcohol withdrawal. Alcohol abuse currently in Acute alcohol withdrawal -CIWA protocol with symptom triggered medication management with Ativan. -Scheduled Valium 2 mg 4 times daily -Fall precautions, seizure precautions, and aspiration precautions in place. -Telemetry monitoring -Zofran as needed for nausea and vomiting. -Continued fluid hydration with 0.9% normal saline at 120 mL's per hour. -Daily thiamine. -Continued close monitoring of electrolyte values with replacement as needed. Alcoholic ketoacidosis -Initial lactate 2.8 Bicarb 17 and anion gap 28. -Liver enzymes elevated with AST 92, ALT 67, and alkaline phosphatase 91. -Patient received 2 L normal saline in ED followed by maintenance infusion of 0.9% normal saline at 120 mL's per hour. -Zofran as needed for nausea and vomiting. -Replacement of abnormal electrolyte values. -Continue close monitoring with repeat a.m. labs. -Repeat lactate post fluid boluses was 1.5. Acute Pancreatitis -Lipase 387 -Symptomatic care and pain management. -Zofran for nausea -NPO -Continued Fluid hydration. -Continued close monitoring with repeat a.m. labs Acute kidney injury -Acute kidney injury with BUN 23, creatinine 1.33, and GFR of 61, (previous labs done on 10/10/20 revealed BUN 9, creatinine 0.7, and GFR 107). -Acute kidney injury likely secondary to dehydration secondary to current alcoholic ketoacidosis resulting from acute alcohol withdrawal. -Patient to receive continued hydration with IV fluids. -We will continue to monitor closely with repeat a.m. labs. Hypomagnesemia -Magnesium 1.5, replaced in ED. -Continue close monitoring with repeat a.m. labs. -Telemetry monitoring Transaminitis -Liver enzymes elevated with AST 92, ALT 67, and alkaline phosphatase 91. -Liver enzymes elevated likely secondary to daily EtOH abuse currently in alcoholic ketoacidosis with acute alcohol withdrawal. -Continue close monitoring with repeat a.m. labs. The patient is admitted with an anticipated greater than 2 midnight stay for evaluation of []. Surrogate decision-maker: Self, in the event he is unable patient's mother Michelle Moore to make decisions. CODE STATUS: Full code DVT prophylaxis: Heparin Discussed with: Patient, RN, and patient's mother Michelle. Anticipated discharge date: Clinical course to determine Anticipated discharge place: Home A total of 45 minutes was spent on the care of this complex patient more than 50% of the time was spent in counseling and care coordination. Past Medical History Past Medical History: Seizure Disorder Additional Past Medical History / Comment(s): pancreatitis History of Any Multi-Drug Resistant Organisms: None Reported Past Surgical History: Joint Replacement, Orthopedic Surgery Past Anesthesia/Blood Transfusion Reactions: No Reported Reaction Past Psychological History: No Psychological Hx Reported Smoking Status: Never smoker, Second hand smoke exposure Past Alcohol Use History: Abuse, Heavy Past Drug Use History: Cocaine, Marijuana Medications and Allergies Home Medications Medication Instructions Recorded Confirmed Type DULoxetine HCL [Cymbalta] 20 mg PO BID 12/26/20 12/26/20 History Ondansetron [Zofran] 4 mg PO Q8HR PRN 12/26/20 12/26/20 History Pantoprazole Sodium [Protonix] 40 mg PO DAILY 12/26/20 12/26/20 History Propranolol [Inderal] 10 mg PO DAILY PRN 12/26/20 12/26/20 History Allergies Allergy/AdvReac Type Severity Reaction Status Date / Time No Known Allergies Allergy Verified 12/26/20 10:14 Physical Exam Vitals: Vital Signs Temp Pulse Resp BP Pulse Ox 12/26/20 14:54 149 H 22 108/77 96 12/26/20 13:40 139 H 20 125/102 12/26/20 12:26 148 H 20 115/78 97 12/26/20 11:01 151 H 24 120/90 97 12/26/20 08:53 98.6 F 153 H 18 132/94 99 Intake and Output 12/26/20 12/26/20 12/26/20 06:59 14:59 22:59 Other: Weight 79.379 kg Results CBC & Chem 7: 12/26/20 09:32 12/26/20 09:32 Labs: Abnormal Lab Results - Last 24 Hours (Table) 12/26/20 12/26/20 12/26/20 Range/Units 09:32 09:32 09:32 RDW 17.6 H (11.5-15.5) % Plt Count 86 L (150-450) k/uL Lymphocytes # 0.4 L (1.0-4.8) k/uL Sodium 133 L (137-145) mmol/L Chloride 88 L (98-107) mmol/L Carbon Dioxide 17 L (22-30) mmol/L BUN 23 H (9-20) mg/dL Creatinine 1.33 H (0.66-1.25) mg/dL Glucose 190 H (74-99) mg/dL Plasma Lactic Acid Nawaf 2.8 H* (0.7-2.0) mmol/L Calcium 10.4 H (8.4-10.2) mg/dL Magnesium 1.5 L (1.6-2.3) mg/dL Total Bilirubin 1.5 H (0.2-1.3) mg/dL AST 92 H (17-59) U/L ALT 67 H (4-49) U/L C-Reactive Protein 21.1 H (<10.0) mg/L Total Protein 9.1 H (6.3-8.2) g/dL Albumin 5.3 H (3.5-5.0) g/dL Lipase 387 H (23-300) U/L <Anay Bowie - Last Filed: 12/26/20 20:56> Physical Exam Osteopathic Statement: *. No significant issues noted on an osteopathic structural exam other than those noted in the History and Physical/Consult. Vitals: Vital Signs Temp Pulse Resp BP Pulse Ox 12/26/20 20:42 106 H 20 119/83 94 L 12/26/20 19:05 98.2 F 134 H 20 127/85 98 12/26/20 17:16 98.7 F 130 H 22 120/88 98 12/26/20 14:54 149 H 22 108/77 96 12/26/20 13:40 139 H 20 125/102 12/26/20 12:26 148 H 20 115/78 97 12/26/20 11:01 151 H 24 120/90 97 12/26/20 08:53 98.6 F 153 H 18 132/94 99 Intake and Output 12/26/20 12/26/20 12/26/20 06:59 14:59 22:59 Output Total 400 Balance -400 Output: Urine 400 Uretheral (Abreu) 400 Other: Weight 79.379 kg Results CBC & Chem 7: 12/26/20 09:32 12/26/20 09:32 Labs: Abnormal Lab Results - Last 24 Hours (Table) 12/26/20 12/26/20 12/26/20 Range/Units 09:32 09:32 09:32 RDW 17.6 H (11.5-15.5) % Plt Count 86 L (150-450) k/uL Lymphocytes # 0.4 L (1.0-4.8) k/uL Sodium 133 L (137-145) mmol/L Chloride 88 L (98-107) mmol/L Carbon Dioxide 17 L (22-30) mmol/L BUN 23 H (9-20) mg/dL Creatinine 1.33 H (0.66-1.25) mg/dL Glucose 190 H (74-99) mg/dL Plasma Lactic Acid Nawaf 2.8 H* (0.7-2.0) mmol/L Calcium 10.4 H (8.4-10.2) mg/dL Magnesium 1.5 L (1.6-2.3) mg/dL Total Bilirubin 1.5 H (0.2-1.3) mg/dL AST 92 H (17-59) U/L ALT 67 H (4-49) U/L C-Reactive Protein 21.1 H (<10.0) mg/L Total Protein 9.1 H (6.3-8.2) g/dL Albumin 5.3 H (3.5-5.0) g/dL Lipase 387 H (23-300) U/L Urine Protein (Negative) Urine Ketones (Negative) Urine Blood (Negative) Urine Bilirubin (Negative) Hyaline Casts (0-2) /lpf Urine Mucus (None) /hpf U Benzodiazepines Scrn (NotDetected) 12/26/20 Range/Units 17:29 RDW (11.5-15.5) % Plt Count (150-450) k/uL Lymphocytes # (1.0-4.8) k/uL Sodium (137-145) mmol/L Chloride (98-107) mmol/L Carbon Dioxide (22-30) mmol/L BUN (9-20) mg/dL Creatinine (0.66-1.25) mg/dL Glucose (74-99) mg/dL Plasma Lactic Acid Nawaf (0.7-2.0) mmol/L Calcium (8.4-10.2) mg/dL Magnesium (1.6-2.3) mg/dL Total Bilirubin (0.2-1.3) mg/dL AST (17-59) U/L ALT (4-49) U/L C-Reactive Protein (<10.0) mg/L Total Protein (6.3-8.2) g/dL Albumin (3.5-5.0) g/dL Lipase (23-300) U/L Urine Protein 1+ H (Negative) Urine Ketones 4+ H (Negative) Urine Blood Small H (Negative) Urine Bilirubin 1+ H (Negative) Hyaline Casts 11 H (0-2) /lpf Urine Mucus Rare H (None) /hpf U Benzodiazepines Scrn Detected H (NotDetected) Assessment and Plan Assessment: Patient seen and examined independently. Patient was also seen by Pola Cortes NP and case was discussed. I am in agreement with subjective, physical exam, assessment and plan as written above and amended below. Patient is very sedated, he has garbled speech. He is unable to tell me the year or where he is at. He does currently deny pain. General: Ill appearing, mild distress, diaphoretic, appears disheveled Derm: warm, [diaphoretic Head: atraumatic, normocephalic, symmetric Eyes: EOMI, no lid lag, anicteric sclera Mouth: no lip lesion, mucus membranes moist Cardiovascular: S1S2 reg, no murmur, positive posterior tibial pulse bilateral, Lungs: Decreased breath sounds bilateral bilateral, no rhonchi, no rales , no accessory muscle use Abdominal: soft, nontender to palpation, no guarding, no appreciable organomegaly Ext: no gross muscle atrophy, no edema, no contractures Neuro: CN II-XI grossly intact, no focal neuro deficits, no tremors noted Psych: Somnolent, arouses to voice, alert to self only Anion gap metabolic acidosis with slight osmolar gap (Osmolar gap 15) -Concern for possible methanol, isopropyl alcohol, ethylene glycol, or propylene glycol ingestion as alcohol level was normal - volatile acid screen - concern is that patient sedation is increasing significantly with very small amounts of ativan - repeat osmolality in AM ETOH Withdrawal - valium, + CIWA - thiamine + folic acid Acute pancreatitis ruled out, lipase is not elevated enough for pancreatitis and likely is reflective of nausea and vomiting Thrombocytopenia -Suspect related to alcohol affects -Follow CBC On review of patient's bedside monitor appears that he has sinus tachycardia as rhythm appears regular. He may have already converted or may have had sinus tach on admission.
[2020-12-26] MEDS ORDERED: SODIUM CHLORIDE 0.9% 1,000 ML IV ONE (16:54)
[2020-12-26 17:39] LABS: Appearance,Urine Clear (Clear); Bilirubin,Urine 1+ (Negative); Blood,Urine Small (Negative); Color,Urine Yellow; Glucose,Urine (UA) Negative (Negative); Hyaline Casts,Urine 11 /lpf (0-2); Ketones,Urine 4+ (Negative); Leukocyte Esterase,Urine Negative (Negative); Mucus,Urine Rare /hpf; Nitrite,Urine Negative (Negative); Protein,Urine 1+ (Negative); RBC,Urine 3 /hpf (0-5); Specific Gravity,Urine 1.023 (1.001-1.035); Squamous Epithelial Cell,Urine <1 /hpf (0-4); WBC,Urine 1 /hpf (0-5)
[2020-12-26 17:43] LABS: Amphetamine Screen,Urine Not Detected (NotDetected); Barbiturate Screen,Urine Not Detected (NotDetected); Benzodiazepines Screen,Urine Detected (NotDetected); Cocaine Screen,Urine Not Detected (NotDetected); Methadone Screen, Urine Not Detected (NotDetected); Opiate Screen,Urine Not Detected (NotDetected); Oxycodone Screen, Urine Not Detected (NotDetected); Phencyclidine Screen,Urine Not Detected (NotDetected); Tricyclic Antidepressant,Urine Not Detected (NotDetected); Urn Cannabinoid Scrn Not Detected (NotDetected)
[2020-12-26] MEDS: diazePAM 2 MG TAB PO SCH (19:01)
[2020-12-26] MEDS: THIAMINE 100 MG TAB PO SCH (19:01)
[2020-12-27] MEDS: LORazepam 2 MG/ML INJ IV PRN ×4 (00:31→18:05)
[2020-12-27] MEDS: diazePAM 2 MG TAB PO SCH ×4 (02:40→21:17)
[2020-12-27] MEDS: SODIUM CHLORIDE 0.9% 1,000 ML IV SCH ×3 (02:40→16:21)
[2020-12-27 05:09] LABS: INR 0.9 (<1.2); Partial Thromboplastin Time 29.5 sec (22.0-30.0); Prothrombin Time 10.2 sec (9.0-12.0)
[2020-12-27 05:30] LABS: Anisocytosis Slight; HCT 33.4 % (39.0-53.0); HGB 11.3 gm/dL (13.0-17.5); MCH 28.2 pg (25.0-35.0); MCHC 33.9 g/dL (31.0-37.0); Mean Platelet Volume 8.4; RBC 4.03 m/uL (4.30-5.90); RDW 17.9 % (11.5-15.5); WBC 4.7 k/uL (3.8-10.6)
[2020-12-27 05:33] LABS: Platelet Count 64 k/uL (150-450)
[2020-12-27 05:41] LABS: ALT 45 U/L (4-49); AST 65 U/L (17-59); African American GFR (CKD) >90 (>60 ml/min/1.73 sqM); Albumin 3.4 g/dL (3.5-5.0); Alkaline Phosphatase 62 U/L (38-126); Anion Gap 8 mmol/L; Blood Urea Nitrogen 34 mg/dL (9-20); Calcium 8.8 mg/dL (8.4-10.2); Carbon Dioxide 27 mmol/L (22-30); Chloride 100 mmol/L (98-107); Glucose 122 mg/dL (74-99); Magnesium 2.2 mg/dL (1.6-2.3); Non-African American GFR(CKD) >90 (>60 ml/min/1.73 sqM); Potassium 3.7 mmol/L (3.5-5.1); Sodium 135 mmol/L (137-145); Total Bilirubin 1.1 mg/dL (0.2-1.3); Total Protein 6.3 g/dL (6.3-8.2)
[2020-12-27] MEDS: DILTIAZEM 125 MG in SODIUM CHLORIDE 0.9% 100 ML IV SCH (05:41)
[2020-12-27 05:53] LABS: Phosphorus 0.8 mg/dL (2.5-4.5)
[2020-12-27] MEDS ORDERED: Phosphorus Replacement Protoco 1 EACH MISC MISCELLANE PRN (06:43)
[2020-12-27] MEDS: SODIUM PHOSPHATE 10 MMOL in SODIUM CHLORIDE 0.9% 250 ML IVPB SCH ×3 (07:30→16:21)
[2020-12-27] MEDS ORDERED: PROPRANOLOL 10 MG TAB PO PRN (08:21)
[2020-12-27] MEDS ORDERED: PANTOPRAZOLE 40 MG/10 ML VIAL IVP SCH (09:00)
[2020-12-27] MEDS: THIAMINE 100 MG TAB PO SCH ×2 (10:20→18:05)
[2020-12-27] MEDS: DULoxetine HCL 20 MG CAPSULE.DR PO SCH ×2 (10:21→21:41)
[2020-12-27] MEDS: FOLIC ACID 1 MG TAB PO SCH (10:24)
[2020-12-27] MEDS ORDERED: LACTATED RINGERS 1,000 ML IV SCH (10:36)
[2020-12-27] MEDS: LACTATED RINGERS 1,000 ML IV SCH ×2 (10:50→18:46)
[2020-12-27] MEDS ORDERED: LACTATED RINGERS 1,000 ML IV STA (10:50)
--- NOTE | 2020-12-27 11:42 | P.PN ---
Subjective Progress Note Date: 12/27/20 No new complaints. Pt reports feeling much better than yesterday. Reviewed EKGs and telemetry, and patient does not appear to be in AFib, but rather sinus tachycardia vs AVRT. Objective - Vital Signs Vital signs: Vital Signs Temp 98.3 F 12/27/20 06:00 Pulse 138 H 12/27/20 11:00 Resp 18 12/27/20 11:00 BP 98/72 12/27/20 11:00 Pulse Ox 99 12/27/20 11:00 Intake & Output 12/26/20 12/27/20 12/27/20 18:59 06:59 18:59 Intake Total 259.779 Output Total 400 1255 Balance -400 -995.221 Weight 79.379 kg Intake: Intake, IV Titration 259.779 Amount Diltiazem 125 mg In 125.000 Sodium Chloride 0.9% 100 ml @ 10 MG/HR 10 mls/hr IV .[id number] [facility] Rx#: [id number] Heparin Sod,Pork in 0.45% 134.779 NaCl 25,000 unit In 0.45 % NaCl 1 250ml.bag @ 12 UNITS/KG/HR 9.525 mls/hr IV .Q24H ISELA Rx#: [id number] Output: Urine 400 1255 Uretheral (Vasquez) 400 - Exam Gen: awake, alert HEENT: normocephalic, atraumatic, good hearing acuity, moist mucous membranes Resp: good air exchange, breathing comfortably with no accessory muscle use CVS: good distal perfusion x 4, tachycardic GI: soft, NTTP, ND : no SPT, no CVAT, vasquez catheter not present MSK: no pitting edema, no clubbing Neuro: non-focal, moving all extremities Psych: cooperative, euthymic mood - Labs CBC & Chem 7: 12/27/20 04:23 12/27/20 04:23 Labs: Abnormal Lab Results - Last 24 Hours (Table) 12/26/20 12/27/20 12/27/20 Range/Units 17:29 04:23 04:23 RBC 4.03 L (4.30-5.90) m/uL Hgb 11.3 L (13.0-17.5) gm/dL Hct 33.4 L (39.0-53.0) % RDW 17.9 H (11.5-15.5) % Plt Count 64 L (150-450) k/uL Sodium 135 L (137-145) mmol/L BUN 34 H (9-20) mg/dL Glucose 122 H (74-99) mg/dL Phosphorus 0.8 L* (2.5-4.5) mg/dL AST 65 H (17-59) U/L Albumin 3.4 L (3.5-5.0) g/dL Urine Protein 1+ H (Negative) Urine Ketones 4+ H (Negative) Urine Blood Small H (Negative) Urine Bilirubin 1+ H (Negative) Hyaline Casts 11 H (0-2) /lpf Urine Mucus Rare H (None) /hpf U Benzodiazepines Scrn Detected H (NotDetected) Assessment and Plan Assessment: Alcohol abuse currently in Acute alcohol withdrawal -CIMN protocol with symptom triggered medication management with Ativan. -Scheduled Valium 2 mg 4 times daily --> 2mg TID on 12/27 -Fall precautions, seizure precautions, and aspiration precautions in place. -Telemetry monitoring -Zofran as needed for nausea and vomiting. -Continued fluid hydration with 0.9% normal saline at 120 mL's per hour. -Daily thiamine. -Continued close monitoring of electrolyte values with replacement as needed. Sinus Tachycardia versus AVRT -Patient diagnosed with atrial fibrillation with RVR in the emergency department and started on anticoagulation with heparin. - reviewed EKGs and tele, I have low suspicion for AFib -He was given Cardizem bolus followed by infusion. - stopped dilt gtt and heparin on 12/27 -Continuous telemetry monitoring -Cardiology consult, appreciate recommendations. -Replacement of electrolyte abnormalities. -Treatment for acute alcohol withdrawal. -LR Bolus on 12/27 Alcoholic ketoacidosis -Initial lactate 2.8 Bicarb 17 and anion gap 28. -Liver enzymes elevated with AST 92, ALT 67, and alkaline phosphatase 91. -Patient received 2 L normal saline in ED followed by maintenance infusion of 0.9% normal saline at 120 mL's per hour. -Zofran as needed for nausea and vomiting. -Replacement of abnormal electrolyte values. -Continue close monitoring with repeat a.m. labs. -Repeat lactate post fluid boluses was 1.5. History of Pancreatitis -Lipase 387 -Symptomatic care and pain management. -Zofran for nausea -Advance diet as tolerated -Continued Fluid hydration. -Continued close monitoring with repeat a.m. labs Acute kidney injury -Acute kidney injury with BUN 23, creatinine 1.33, and GFR of 61, (previous labs done on 10/10/20 revealed BUN 9, creatinine 0.7, and GFR 107). -Acute kidney injury likely secondary to dehydration secondary to current alcoholic ketoacidosis resulting from acute alcohol withdrawal. -Patient to receive continued hydration with IV fluids. -We will continue to monitor closely with repeat a.m. labs. Hypomagnesemia -Magnesium 1.5, replaced in ED. -Continue close monitoring with repeat a.m. labs. -Telemetry monitoring Transaminitis -Liver enzymes elevated with AST 92, ALT 67, and alkaline phosphatase 91. -Liver enzymes elevated likely secondary to daily EtOH abuse currently in alcoholic ketoacidosis with acute alcohol withdrawal. -Continue close monitoring with repeat a.m. labs. The patient is admitted with an anticipated greater than 2 midnight stay for evaluation of []. Surrogate decision-maker: Self, in the event he is unable patient's mother Michelle Nieton to make decisions. CODE STATUS: Full code DVT prophylaxis: Heparin Discussed with: Patient, RN, and patient's mother Michelle. Anticipated discharge date: Clinical course to determine Anticipated discharge place: Home
[2020-12-27] MEDS ORDERED: ADENOSINE 3 MG/ML 2 ML VIAL IVP STA ×2 (14:05→14:12)
--- NOTE | 2020-12-27 14:23 | P.PN ---
Subjective Progress Note Date: 12/27/20 Principal diagnosis: Alcohol withdrawal, A. fib with RVR 55-year-old male that I'm asked to see in the emergency department for alcohol withdrawal syndrome. The patient apparently presents to the emergency department, today, with possible alcohol withdrawal syndrome. His last alcoholic beverages 48 hours ago. The patient has a prior history of alcohol withdrawal syndrome and prior admissions. The patient also has a diagnosis of alcoholic pancreatitis, as well as seizure disorder, and depression. Currently, the patient's on a Cardizem drip because of atrial fibrillation. The patient got 10 mg IV push, and then a drip at 5 mg an hour. Currently, he is not in any supplemental oxygen. His [place] currently, as he's been getting Ativan per the CIWA protocol. Laboratory data includes a white count 6.8, he will 14.2, hematocrit 42.1, and platelet count 86,000. Sodium 133, potassium 3.8, chloride 88, CO2 17, anion gap is 28, BUN and creatinine were 23 and 1.33. Lactic acid was 2.3. Calcium 10.4, magnesium 1.5, bilirubin 1.5, and AST ALT were 92 and 67 respectively. Lipase was 387. He was checked for coronavirus, but the test was negative. The chest x-ray was negative for any acute disease. On 12/27/2020 patient seen in follow-up in the emergency room, still awaiting a bed for intensive care unit, he is calm and comfortable, no agitation, he is pl easant, cooperative, his last CIWA scale this morning at 6:00 was only 8, he is on oral diazepam, he has when necessary doses of lorazepam, and he has only required 2 mg of Ativan last night. No tremors, he slightly nauseous, no headaches, no shortness of breath, lung sounds are clear, he remains in what appears to be sinus tachycardia with a rate of 1:30 BPM, he is on Cardizem drip at 10 mg per hour, 0.9 normal seen at 120 ML per hour, and heparin drip is per weight based protocol. Patient is attempting reviewed, white blood cell count is 4.7, hemoglobin is 11.3, sodium is 135, breast electrolytes were within normal limits, BUN is 34, creatinine 0.8, serum phosphorus is 0.8, and patient i s receiving sodium positive replacements IV piggybacks this morning, AST 65, ALT is 45, alkaline phosphatase 62, urinalysis showed 1+ protein, 4+ ketones, 1+ bilirubin, but no definite sign of infection. Patient feels thirsty, and would like to eat. No acute events overnight, he is voiding, but pressure is stable, he remains on room air, he tested Covid negative, room air pulse ox is 98%. Objective - Vital Signs Vital signs: Vital Signs Temp 98.3 F 12/27/20 06:00 Pulse 129 H 12/27/20 12:01 Resp 18 12/27/20 12:01 BP 96/71 12/27/20 12:01 Pulse Ox 98 12/27/20 12:01 Intake & Output 12/26/20 12/27/20 12/27/20 18:59 06:59 18:59 Intake Total 259.779 Output Total 400 1255 Balance -400 -995.221 Weight 79.379 kg Intake: Intake, IV Titration 259.779 Amount Diltiazem 125 mg In 125.000 Sodium Chloride 0.9% 100 ml @ 10 MG/HR 10 mls/hr IV .[id number] [facility] Rx#: [id number] Heparin Sod,Pork in 0.45% 134.779 NaCl 25,000 unit In 0.45 % NaCl 1 250ml.bag @ 12 UNITS/KG/HR 9.525 mls/hr IV .Q24H [facility] Rx#: [id number] Output: Urine 400 1255 Uretheral (Abreu) 400 - Exam GENERAL EXAM: Alert, very pleasant 55-year-old white male, on room air with pulse ox of 98%, comfortable in no apparent distress. HEAD: Normocephalic/atraumatic. EYES: Normal reaction of pupils, equal size. Conjunctiva pink, sclera white. NOSE: Clear with pink turbinates. THROAT: No erythema or exudates. NECK: No masses, no JVD, no thyroid enlargement, no adenopathy. CHEST: No chest wall deformity. Symmetrical expansion. LUNGS: Equal air entry with no crackles, wheeze, rhonchi or dullness. CVS: Regular rate and rhythm, normal S1 and S2, no gallops, no murmurs, no rubs ABDOMEN: Soft, nontender. No hepatosplenomegaly, normal bowel sounds, no guarding or rigidity. EXTREMITIES: No clubbing, no edema, no cyanosis, 2+ pulses and upper and lower extremities. MUSCULOSKELETAL: Muscle strength and tone normal. SPINE: No scoliosis or deformity SKIN: No rashes CENTRAL NERVOUS SYSTEM: Alert and oriented -3. No focal deficits, tone is normal in all 4 extremities. PSYCHIATRIC: Alert and oriented -3. Appropriate affect. Intact judgment and insight. - Labs CBC & Chem 7: 12/27/20 04:23 12/27/20 04:23 Labs: Abnormal Lab Results - Last 24 Hours (Table) 12/26/20 12/27/20 12/27/20 Range/Units 17:29 04:23 04:23 RBC 4.03 L (4.30-5.90) m/uL Hgb 11.3 L (13.0-17.5) gm/dL Hct 33.4 L (39.0-53.0) % RDW 17.9 H (11.5-15.5) % Plt Count 64 L (150-450) k/uL Sodium 135 L (137-145) mmol/L BUN 34 H (9-20) mg/dL Glucose 122 H (74-99) mg/dL Phosphorus 0.8 L* (2.5-4.5) mg/dL AST 65 H (17-59) U/L Albumin 3.4 L (3.5-5.0) g/dL Urine Protein 1+ H (Negative) Urine Ketones 4+ H (Negative) Urine Blood Small H (Negative) Urine Bilirubin 1+ H (Negative) Hyaline Casts 11 H (0-2) /lpf Urine Mucus Rare H (None) /hpf U Benzodiazepines Scrn Detected H (NotDetected) Assessment and Plan Plan: Assessment: #1. Acute alcohol withdrawal syndrome symptoms of nausea, vomiting, dehydration #2. A. fib with RVR, remains on Cardizem drip, and remains on heparin drip, cardiology following, patient appears to be in sinus tachycardia right now #3. History of chronic alcohol abuse #4. ANion gap metabolic acidosis, related to mild lactic acidosis related to dehydration improved with IV hydration #5. Prior history of drug abuse including cocaine and marijuana #6. Previous history of seizures, not on any antiseizure medications on regular basis Plan: Patient is clinically stable, no agitation, his last CIWA scale score is 8, only required 2 mg of Ativan overnight, still tachycardic, but appears to be in sinus tachycardia, cardiology is following, patient continues on Cardizem infusion, he is on heparin for anticoagulation, we will add his home dose propranolol, will restart his Cymbalta, continue CIWA scale monitoring, from pulmonary perspective patient can be downgraded to selective care, we'll continue to follow I performed a history & physical examination of the patient and discussed their management with my nurse practitioner, Yeimi Funes. I reviewed the nurse practitioner's note and agree with the documented findings and plan of care. Lung sounds are positive for clear breath sounds The findings and the impression was discussed with the patient. I attest to the documentation by the nurse practitioner. Time with Patient: Less than 30
[2020-12-27] MEDS ORDERED: DILTIAZEM 125 MG in SODIUM CHLORIDE 0.9% 100 ML IV SCH (16:30)
--- NOTE | 2020-12-27 17:00 | P.CRDCN ---
History of Present Illness History of present illness: Patient is a 55-year-old male with a past medical history of EtOH use/abuse reportedly he used to drink a minimum of 1 pint of vodka daily along with beer with history of previous withdrawal seizures, pancreatitis, depression, and anxiety. We have been consulted for tachyarrhythmia. 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 Patient presented to the emergency department with a chief complaint of abdominal pain, nausea, vomiting, and diarrhea. Patient is seen and examined in the emergency department. No acute distress. He denies chest pain, shortness of breath, palpitations, shortness of breath, lower extremity edema, fatigue, weakness, lightheadedness, syncope. Patient denies history of [place], diabetes, hypertension, or stroke. Denies cardiac workup history. Denies illicit drug use. EKG reveals short RP tachycardia HR 140s Laboratory data reviewed, sodium 135, potassium 3.7, serum creatinine 0.80, AST 65, UA with positive benzos, serum alcohol less than 10, covid-19 negative, Vital signs blood pressure 104/76, heart rate in the [id number], afebrile, maintaining oxygen saturation on room air. At bedside patient appears in SVT HR 130s-140s. Patient states he does not take any medications at home. REVIEW OF SYSTEMS At the time of my exam: CONSTITUTIONAL: Denies fever or chills. CARDIOVASCULAR: Denies chest pain, shortness of breath, orthopnea, PND or palpitations. RESPIRATORY: Denies cough. GASTROINTESTINAL: + abdominal pain, +diarrhea, +nausea or vomiting. Denies constipation MUSCULOSKELETAL: Denies myalgias. NEUROLOGIC: Denies numbness, tingling, headacbe or weakness. ENDOCRINE: Denies fatigue, weight change, polydipsia or polyurina. GENITOURINARY: Denies burning, hematuria or urgency with micturation. HEMATOLOGIC: Denies history of anemia or bleeding. PHYSICAL EXAMINATION CONSTITUTIONAL: No apparent distress. HEENT: Head is normocephalic. Pupils are equal, round. Sclerae anicteric. Mucous membranes of the mouth are moist. No JVD. No carotid bruit. CHEST EXAMINATION: Lungs are clear to auscultation. No chest wall tenderness is noted on palpation or with deep breathing. HEART EXAMINATION: Tachycardic rate and rhythm. S1, S2 heard. No murmurs, gallops or rub. ABDOMEN: Soft, nontender. Positive bowel sounds. EXTREMITIES: 2+ peripheral pulses, 2+ lower extremity edema and no calf tenderness. SKIN:intact NEUROLOGIC EXAMINATION: Patient is awake, alert and oriented x3. ASSESSMENT ETOH abuse Short RP tachycardia Acute Kidney injury- improved with IV fluids Hypomagnesemia- replaced PLAN -Gave a total of 12mg IV Adenosine - no response -Cardizem drip started at 5ml/hr to control rate -Further recommendations pending clinical course and heart rate response Nurse Practitioner note has been reviewed, I agree with a documented findings and plan of care. Patient was seen and examined. Past Medical History Past Medical History: Seizure Disorder Additional Past Medical History / Comment(s): pancreatitis History of Any Multi-Drug Resistant Organisms: None Reported Past Surgical History: Joint Replacement, Orthopedic Surgery Past Anesthesia/Blood Transfusion Reactions: No Reported Reaction Past Psychological History: No Psychological Hx Reported Smoking Status: Never smoker, Second hand smoke exposure Past Alcohol Use History: Abuse, Heavy Past Drug Use History: Cocaine, Marijuana Medications and Allergies Home Medications Medication Instructions Recorded Confirmed Type DULoxetine HCL [Cymbalta] 20 mg PO BID 12/26/20 12/26/20 History Ondansetron [Zofran] 4 mg PO Q8HR PRN 12/26/20 12/26/20 History Pantoprazole Sodium [Protonix] 40 mg PO DAILY 12/26/20 12/26/20 History Propranolol [Inderal] 10 mg PO DAILY PRN 12/26/20 12/26/20 History Allergies Allergy/AdvReac Type Severity Reaction Status Date / Time No Known Allergies Allergy Verified 12/26/20 10:14 Physical Exam Vitals: Vital Signs Temp Pulse Resp BP Pulse Ox 12/27/20 12:01 129 H 18 96/71 98 12/27/20 11:00 138 H 18 98/72 99 12/27/20 09:00 124 H 18 104/76 99 12/27/20 07:38 130 H 18 104/77 98 12/27/20 06:00 98.3 F 136 H 20 99/76 97 12/27/20 05:00 127 H 22 98/73 96 12/27/20 04:00 134 H 22 106/70 96 12/27/20 03:00 118 H 20 100/74 98 12/27/20 02:00 134 H 18 105/75 95 12/27/20 01:00 129 H 18 100/73 95 12/26/20 23:45 124 H 20 102/83 96 12/26/20 22:45 98.2 F 128 H 20 107/84 98 12/26/20 22:01 120 H 18 100/77 96 12/26/20 20:42 106 H 20 119/83 94 L 12/26/20 19:05 98.2 F 134 H 20 127/85 98 12/26/20 17:16 98.7 F 130 H 22 120/88 98 12/26/20 14:54 149 H 22 108/77 96 12/26/20 13:40 139 H 20 125/102 Intake and Output 12/26/20 12/27/20 12/27/20 22:59 06:59 14:59 Intake Total 75.333 184.446 Output Total 400 1255 Balance -324.667 -1070.554 Intake: Intake, IV Titration 75.333 184.446 Amount Diltiazem 125 mg In 75.333 49.667 Sodium Chloride 0.9% 100 ml @ 10 MG/HR 10 mls/hr IV .[id number] [facility] Rx#: [id number] Heparin Sod,Pork in 0.45% 134.779 NaCl 25,000 unit In 0.45 % NaCl 1 250ml.bag @ 12 UNITS/KG/HR 9.525 mls/hr IV .Q24H [facility] Rx#: [id number] Output: Urine 400 1255 Uretheral (Abreu) 400 Results 12/27/20 04:23 12/27/20 04:23 Cardiac Enzymes 12/27/20 Range/Units 04:23 AST 65 H (17-59) U/L Coagulation 12/27/20 Range/Units 04:53 PT 10.2 (9.0-12.0) sec APTT 29.5 (22.0-30.0) sec CBC 12/27/20 Range/Units 04:23 WBC 4.7 (3.8-10.6) k/uL RBC 4.03 L (4.30-5.90) m/uL Hgb 11.3 L (13.0-17.5) gm/dL Hct 33.4 L (39.0-53.0) % Plt Count 64 L (150-450) k/uL Comprehensive Metabolic Panel 12/27/20 Range/Units 04:23 Sodium 135 L (137-145) mmol/L Potassium 3.7 (3.5-5.1) mmol/L Chloride 100 (98-107) mmol/L Carbon Dioxide 27 (22-30) mmol/L BUN 34 H (9-20) mg/dL Creatinine 0.80 (0.66-1.25) mg/dL Glucose 122 H (74-99) mg/dL Calcium 8.8 (8.4-10.2) mg/dL AST 65 H (17-59) U/L ALT 45 (4-49) U/L Alkaline Phosphatase 62 (38-126) U/L Total Protein 6.3 (6.3-8.2) g/dL Albumin 3.4 L (3.5-5.0) g/dL Current Medications Generic Name Dose Route Start Last Admin Trade Name Freq PRN Reason Stop Dose Admin Acetaminophen 650 mg 12/26/20 14:36 Acetaminophen Tab 325 Mg Tab PO Q4HR PRN Fever and/or Mild Pain Diazepam 2 mg 12/27/20 16:00 Diazepam 2 Mg Tab PO TID [facility] Duloxetine HCl 20 mg 12/27/20 09:00 12/27/20 10:21 Duloxetine Hcl 20 Mg Capsule.Dr PO 20 mg BID [facility] Administration Folic Acid 1 mg 12/27/20 09:00 12/27/20 10:24 Folic Acid 1 Mg Tab PO 1 mg DAILY [facility] Administration Sodium Chloride 1,000 mls @ 120 mls/hr 12/26/20 14:45 12/27/20 07:31 Saline 0.9% IV 120 mls/hr .[id number] [facility] Administration Lorazepam 1 mg 12/26/20 09:29 12/27/20 06:37 Lorazepam 2 Mg/Ml Inj IV 1 mg Q2HR PRN Administration CIWA 8 or 9 Lorazepam 1 mg 12/26/20 09:29 12/26/20 15:04 Lorazepam 2 Mg/Ml Inj IV 1 mg Q1HR PRN Administration CIWA 10 to 15 Lorazepam 2 mg 12/26/20 09:29 Lorazepam 2 Mg/Ml Inj IV 12/28/20 09:29 Q10M PRN CIWA 16 or higher Miscellaneous Information 1 each 12/27/20 06:43 Phosphorus Replacement Protoco 1 Each Misc MISCELLANE DAILY PRN Per Protocol Protocol Naloxone HCl 0.2 mg 12/26/20 14:36 Naloxone 0.4 Mg/Ml 1 Ml Vial IV Q2M PRN Opioid Reversal Ondansetron HCl 4 mg 12/26/20 15:45 Ondansetron 4 Mg/2 Ml Vial IVP Q6HR PRN Nausea And Vomiting Pantoprazole Sodium 40 mg 12/27/20 09:00 12/27/20 11:15 Pantoprazole 40 Mg/10 Ml Vial IVP 40 mg DAILY [facility] Administration Propranolol HCl 10 mg 12/27/20 08:21 Propranolol 10 Mg Tab PO DAILY PRN Anxiety Thiamine HCl 100 mg 12/26/20 17:30 12/27/20 10:20 Thiamine 100 Mg Tab PO 100 mg BID-W/MEALS [facility] Administration Intake and Output 12/26/20 12/27/20 12/27/20 22:59 06:59 14:59 Intake Total 75.333 184.446 Output Total 400 1255 Balance -324.667 -1070.554 Intake: Intake, IV Titration 75.333 184.446 Amount Diltiazem 125 mg In 75.333 49.667 Sodium Chloride 0.9% 100 ml @ 10 MG/HR 10 mls/hr IV .[id number] [facility] Rx#: [id number] Heparin Sod,Pork in 0.45% 134.779 NaCl 25,000 unit In 0.45 % NaCl 1 250ml.bag @ 12 UNITS/KG/HR 9.525 mls/hr IV .Q24H [facility] Rx#: [id number] Output: Urine 400 1255 Uretheral (Abreu) 400 12/27/20 04:23 12/27/20 04:23
[2020-12-28] MEDS: SODIUM CHLORIDE 0.9% 1,000 ML IV SCH ×3 (00:45→18:29)
[2020-12-28] MEDS: LACTATED RINGERS 1,000 ML IV SCH ×6 (00:47→18:29)
[2020-12-28] MEDS: LORazepam 2 MG/ML INJ IV PRN ×3 (02:26→21:40)
[2020-12-28] MEDS: THIAMINE 100 MG TAB PO SCH ×2 (06:23→16:58)
[2020-12-28] MEDS: PANTOPRAZOLE 40 MG TABLET PO SCH (06:23)
[2020-12-28] MEDS: diazePAM 2 MG TAB PO SCH (08:33)
[2020-12-28] MEDS: FOLIC ACID 1 MG TAB PO SCH (08:33)
[2020-12-28] MEDS: DULoxetine HCL 20 MG CAPSULE.DR PO SCH ×2 (08:33→21:28)
--- NOTE | 2020-12-28 13:13 | P.PN ---
Subjective Progress Note Date: 12/28/20 Principal diagnosis: Alcohol withdrawal, A. fib with RVR 55-year-old male that I'm asked to see in the emergency department for alcohol withdrawal syndrome. The patient apparently presents to the emergency department, today, with possible alcohol withdrawal syndrome. His last alcoholic beverages 48 hours ago. The patient has a prior history of alcohol withdrawal syndrome and prior admissions. The patient also has a diagnosis of alcoholic pancreatitis, as well as seizure disorder, and depression. Currently, the patient's on a Cardizem drip because of atrial fibrillation. The patient got 10 mg IV push, and then a drip at 5 mg an hour. Currently, he is not in any supplemental oxygen. His [place] currently, as he's been getting Ativan per the CIWA protocol. Laboratory data includes a white count 6.8, he will 14.2, hematocrit 42.1, and platelet count 86,000. Sodium 133, potassium 3.8, chloride 88, CO2 17, anion gap is 28, BUN and creatinine were 23 and 1.33. Lactic acid was 2.3. Calcium 10.4, magnesium 1.5, bilirubin 1.5, and AST ALT were 92 and 67 respectively. Lipase was 387. He was checked for coronavirus, but the test was negative. The chest x-ray was negative for any acute disease. On 12/27/2020 patient seen in follow-up in the emergency room, still awaiting a bed for intensive care unit, he is calm and comfortable, no agitation, he is pl easant, cooperative, his last CIWA scale this morning at 6:00 was only 8, he is on oral diazepam, he has when necessary doses of lorazepam, and he has only required 2 mg of Ativan last night. No tremors, he slightly nauseous, no headaches, no shortness of breath, lung sounds are clear, he remains in what appears to be sinus tachycardia with a rate of 1:30 BPM, he is on Cardizem drip at 10 mg per hour, 0.9 normal seen at 120 ML per hour, and heparin drip is per weight based protocol. Patient is attempting reviewed, white blood cell count is 4.7, hemoglobin is 11.3, sodium is 135, breast electrolytes were within normal limits, BUN is 34, creatinine 0.8, serum phosphorus is 0.8, and patient i s receiving sodium positive replacements IV piggybacks this morning, AST 65, ALT is 45, alkaline phosphatase 62, urinalysis showed 1+ protein, 4+ ketones, 1+ bilirubin, but no definite sign of infection. Patient feels thirsty, and would like to eat. No acute events overnight, he is voiding, but pressure is stable, he remains on room air, he tested Covid negative, room air pulse ox is 98%. The patient is seen today the 2020 follow on the selective care unit. Currently resting comfortably in bed. Awake, alert in no acute distress. Maintaining O2 saturations in the upper 90s on room air. He's been afebrile. Remains on the CIWA protocol requiring Ativan 2 early this morning. Remains slightly tachycardic currently at 110. Remains on 0.9 normal saline at 120 ML's per hour. Receiving vitamin supplements. Objective - Vital Signs Vital signs: Vital Signs Temp 98.1 F 12/28/20 12:00 Pulse 110 H 12/28/20 12:00 Resp 22 12/28/20 12:00 BP 122/76 12/28/20 12:00 Pulse Ox 98 12/28/20 12:00 Intake & Output 12/27/20 12/28/20 12/28/20 18:59 06:59 18:59 Intake Total 540 125 Output Total 1400 Balance -860 125 Weight 79.379 kg 91.5 kg Intake: Oral 540 125 Output: Urine 1400 Other: Voiding Method Indwelling Catheter - Exam GENERAL EXAM: Alert, pleasant 55-year-old white male, on room air with pulse ox of 98%, comfortable in no apparent distress. HEAD: Normocephalic/atraumatic. EYES: Normal reaction of pupils, equal size. Conjunctiva pink, sclera white. NOSE: Clear with pink turbinates. THROAT: No erythema or exudates. NECK: No masses, no JVD, no thyroid enlargement, no adenopathy. CHEST: No chest wall deformity. Symmetrical expansion. LUNGS: Equal air entry with no crackles, wheeze, rhonchi or dullness. CVS: Regular rate and rhythm, normal S1 and S2, no gallops, no murmurs, no rubs ABDOMEN: Soft, nontender. No hepatosplenomegaly, normal bowel sounds, no guarding or rigidity. EXTREMITIES: No clubbing, no edema, no cyanosis, 2+ pulses and upper and lower extremities. MUSCULOSKELETAL: Muscle strength and tone normal. SPINE: No scoliosis or deformity SKIN: No rashes CENTRAL NERVOUS SYSTEM: No focal deficits, tone is normal in all 4 extremities. PSYCHIATRIC: Alert and oriented -3. Appropriate affect. Intact judgment and insight. - Labs CBC & Chem 7: 12/27/20 04:23 12/27/20 04:23 Assessment and Plan Assessment: 1 Acute alcohol withdrawal syndrome symptoms of nausea, vomiting, dehydration 2 A. fib with RVR, remains on Cardizem drip, and remains on heparin drip, cardiology following, patient appears to be in sinus tachycardia right now 3 History of chronic alcohol abuse 4 ANion gap metabolic acidosis, related to mild lactic acidosis related to dehydration improved with IV hydration 5 Prior history of drug abuse including cocaine and marijuana 6 Previous history of seizures, not on any antiseizure medications on regular basis Plan: The patient was seen and evaluated by Dr. Mills Currently stable from the pulmonary standpoint, on room air Remains in the CIWA protocol Off Cardizem drip We will continue to follow I, the cosigning physician, performed a history & physical examination of the patient. Lungs sounds are clear. Maintaining good O2 saturations in the 90s on room air. I discussed the assessment and plan of care with my nurse practitioner, Lydia Mei. I attest to the above note as dictated by her.
[2020-12-28 14:07] VITALS: BMI 27.3
[2020-12-28 14:08] LABS: Ethanol Negative (Negative); Isopropanol Negative (Negative)
--- NOTE | 2020-12-28 14:48 | P.PN ---
Subjective Patient is a 55-year-old male with a past medical history of EtOH use/abuse reportedly he used to drink a minimum of 1 pint of vodka daily along with beer with history of previous withdrawal seizures, pancreatitis, depression, and anxiety. We have been consulted for tachyarrhythmia. 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 Patient presented to the emergency department with a chief complaint of abdominal pain, nausea, vomiting, and diarrhea. Patient is seen and examined in the emergency department. No acute distress. He denies chest pain, shortness of breath, palpitations, shortness of breath, lower extremity edema, fatigue, weakness, lightheadedness, syncope. Patient denies history of [place], diabetes, hypertension, or stroke. Denies cardiac workup history. Denies illicit drug use. EKG reveals short RP tachycardia HR 140s Laboratory data reviewed, sodium 135, potassium 3.7, serum creatinine 0.80, AST 65, UA with positive benzos, serum alcohol less than 10, covid-19 negative, Vital signs blood pressure 104/76, heart rate in the [id number], afebrile, maintaining oxygen saturation on room air. At bedside patient appears in SVT HR 130s-140s. Patient states he does not take any medications at home. Patient given total of 12mg IV Adenosine - no response and then Cardizem drip started at 5ml/hr to control rate 12/28/2020: Patient off cardizem drip. Resting comfortably in bed. No new complaints. Meghann ent alert and oriented 3, on no apparent distress. BP 131/87 HR 111, afebrile, maintaing oxygen saturation on room air. Telemetry reviewed patient sinus tachycardia heart rate 100-115. PHYSICAL EXAMINATION CONSTITUTIONAL: No apparent distress. HEENT: Head is normocephalic. Pupils are equal, round. Sclerae anicteric. Mucous membranes of the mouth are moist. No JVD. No carotid bruit. CHEST EXAMINATION: Lungs are clear to auscultation. No chest wall tenderness is noted on palpation or with deep breathing. HEART EXAMINATION: Tachycardic rate and rhythm. S1, S2 heard. No murmurs, gallops or rub. ABDOMEN: Soft, nontender. Positive bowel sounds. EXTREMITIES: 2+ peripheral pulses, 2+ lower extremity edema and no calf tenderness. SKIN:intact NEUROLOGIC EXAMINATION: Patient is awake, alert and oriented x3. ASSESSMENT ETOH abuse Short RP tachycardia Acute Kidney injury- improved with IV fluids Hypomagnesemia- replaced PLAN -Start metoprolol succinate 25mg daily -Continue cardiac telemetry -Further recommendations pending clinical course and heart rate response Nurse Practitioner note has been reviewed, I agree with a documented findings and plan of care. Patient was seen and examined. Objective - Vital Signs Vital signs: Vital Signs Temp 98.1 F 12/28/20 12:00 Pulse 110 H 12/28/20 12:00 Resp 22 12/28/20 12:00 BP 122/76 12/28/20 12:00 Pulse Ox 98 12/28/20 12:00 Intake & Output 12/27/20 12/28/20 12/28/20 18:59 06:59 18:59 Intake Total 540 125 Output Total 1400 Balance -860 125 Weight 79.379 kg 91.5 kg 91.5 kg Intake: Oral 540 125 Output: Urine 1400 Other: Voiding Method Indwelling Catheter - Labs CBC & Chem 7: 12/27/20 04:23 12/27/20 04:23 Labs: Abnormal Lab Results - Last 24 Hours (Table) 12/27/20 Range/Units 04:23 Acetone, Qual 15 H (Negative) mg/dL
--- NOTE | 2020-12-28 15:34 | P.PN ---
Subjective Progress Note Date: 12/28/20 Pt has had several loose stools, and has developed cough and sore throat since admission. HRs have improved. Objective - Vital Signs Vital signs: Vital Signs Temp 98.1 F 12/28/20 12:00 Pulse 110 H 12/28/20 12:00 Resp 22 12/28/20 12:00 BP 122/76 12/28/20 12:00 Pulse Ox 98 12/28/20 12:00 Intake & Output 12/27/20 12/28/20 12/28/20 18:59 06:59 18:59 Intake Total 540 125 Output Total 1400 Balance -860 125 Weight 79.379 kg 91.5 kg 91.5 kg Intake: Oral 540 125 Output: Urine 1400 Other: Voiding Method Indwelling Catheter - Exam Gen: awake, alert HEENT: normocephalic, atraumatic, good hearing acuity, moist mucous membranes Resp: good air exchange, breathing comfortably with no accessory muscle use CVS: good distal perfusion x 4, tachycardic GI: soft, NTTP, ND : no SPT, no CVAT, vasquez catheter not present MSK: no pitting edema, no clubbing Neuro: non-focal, moving all extremities Psych: cooperative, euthymic mood - Labs CBC & Chem 7: 12/27/20 04:23 12/27/20 04:23 Labs: Abnormal Lab Results - Last 24 Hours (Table) 12/27/20 Range/Units 04:23 Acetone, Qual 15 H (Negative) mg/dL Assessment and Plan Assessment: Alcohol abuse currently in Acute alcohol withdrawal -WA protocol with symptom triggered medication management with Ativan. -Scheduled Valium 2 mg 4 times daily --> 2mg TID on 12/27 -Fall precautions, seizure precautions, and aspiration precautions in place. -Telemetry monitoring -Zofran as needed for nausea and vomiting. -Continued fluid hydration with 0.9% normal saline at 120 mL's per hour. -Daily thiamine. -Continued close monitoring of electrolyte values with replacement as needed. Sinus Tachycardia versus AVRT -Patient diagnosed with atrial fibrillation with RVR in the emergency department and started on anticoagulation with heparin. - reviewed EKGs and tele, I have low suspicion for AFib -He was given Cardizem bolus followed by infusion. - stopped dilt gtt and heparin on 12/27 -Continuous telemetry monitoring -Cardiology consult, appreciate recommendations. - s/p adenosine 12mg and 6mg, with continuation of long RP/short [place] tachycardia - rate control improving with control of withdrawal -Replacement of electrolyte abnormalities. -Treatment for acute alcohol withdrawal. -LR Bolus on 12/27 and 12/28 Alcoholic ketoacidosis -Initial lactate 2.8 Bicarb 17 and anion gap 28. -Liver enzymes elevated with AST 92, ALT 67, and alkaline phosphatase 91. -Patient received 2 L normal saline in ED followed by maintenance infusion of 0.9% normal saline at 120 mL's per hour. -Zofran as needed for nausea and vomiting. -Replacement of abnormal electrolyte values. -Continue close monitoring with repeat a.m. labs. -Repeat lactate post fluid boluses was 1.5. History of Pancreatitis -Lipase 387 -Symptomatic care and pain management. -Zofran for nausea -Advance diet as tolerated -Continued Fluid hydration. -Continued close monitoring with repeat a.m. labs Acute kidney injury -Acute kidney injury with BUN 23, creatinine 1.33, and GFR of 61, (previous labs done on 10/10/20 revealed BUN 9, creatinine 0.7, and GFR 107). -Acute kidney injury likely secondary to dehydration secondary to current alcoholic ketoacidosis resulting from acute alcohol withdrawal. -Patient to receive continued hydration with IV fluids. -We will continue to monitor closely with repeat a.m. labs. Hypomagnesemia -Magnesium 1.5, replaced in ED. -Continue close monitoring with repeat a.m. labs. -Telemetry monitoring Transaminitis -Liver enzymes elevated with AST 92, ALT 67, and alkaline phosphatase 91. -Liver enzymes elevated likely secondary to daily EtOH abuse currently in alcoholic ketoacidosis with acute alcohol withdrawal. -Continue close monitoring with repeat a.m. labs. Surrogate decision-maker: Self, in the event he is unable patient's mother Michelle Moore to make decisions. CODE STATUS: Full code DVT prophylaxis: Heparin Discussed with: Patient, RN, and patient's mother Michelle. Anticipated discharge date: Clinical course to determine Anticipated discharge place: Home
[2020-12-28] MEDS: METOPROLOL SUCCINATE (ER) 25 MG TAB.ER.24H PO SCH (18:09)
[2020-12-28] MEDS: LOPERAMIDE 2 MG CAP PO PRN (21:40)
[2020-12-29] MEDS: SODIUM CHLORIDE 0.9% 1,000 ML IV SCH (02:44)
[2020-12-29] MEDS: PANTOPRAZOLE 40 MG TABLET PO SCH (06:06)
[2020-12-29] MEDS: THIAMINE 100 MG TAB PO SCH (06:07)
[2020-12-29] MEDS: LOPERAMIDE 2 MG CAP PO PRN (08:45)
[2020-12-29] MEDS: FOLIC ACID 1 MG TAB PO SCH (08:45)
[2020-12-29] MEDS: METOPROLOL SUCCINATE (ER) 25 MG TAB.ER.24H PO SCH (08:45)
[2020-12-29] MEDS: DULoxetine HCL 20 MG CAPSULE.DR PO SCH (08:45)
[2020-12-29 08:58] VITALS: BP 120/78; PULSE 123; RESP 16; TEMP 99.3
--- NOTE | 2020-12-29 13:41 | P.PN ---
Subjective Patient is a 55-year-old male with a past medical history of EtOH use/abuse reportedly he used to drink a minimum of 1 pint of vodka daily along with beer with history of previous withdrawal seizures, pancreatitis, depression, and anxiety. We have been consulted for tachyarrhythmia. 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 Patient presented to the emergency department with a chief complaint of abdominal pain, nausea, vomiting, and diarrhea. Patient is seen and examined in the emergency department. No acute distress. He denies chest pain, shortness of breath, palpitations, shortness of breath, lower extremity edema, fatigue, weakness, lightheadedness, syncope. Patient denies history of LA, diabetes, hypertension, or stroke. Denies cardiac workup history. Denies illicit drug use. EKG reveals short RP tachycardia HR 140s Laboratory data reviewed, sodium 135, potassium 3.7, serum creatinine 0.80, AST 65, UA with positive benzos, serum alcohol less than 10, covid-19 negative, Vital signs blood pressure 104/76, heart rate in the [id number], afebrile, maintaining oxygen saturation on room air. At bedside patient appears in SVT HR 130s-140s. Patient states he does not take any medications at home. Patient given total of 12mg IV Adenosine - no response and then Cardizem drip started at 5ml/hr to control rate 12/28/2020: Patient off cardizem drip. Resting comfortably in bed. No new complaints. Meghann ent alert and oriented 3, on no apparent distress. BP 131/87 HR 111, afebrile, maintaing oxygen saturation on room air. Telemetry reviewed patient sinus tachycardia heart rate 100-115. 12/29/2020: Patient seen and examined at bedside. Patient feels well, eager about going home. Telemetry tracings indicated sinus rhythm HR 100s. Vital signs stable. BP 126/87 HR 104, afebrile, maintaining oxygen saturation >92% on room air PHYSICAL EXAMINATION CONSTITUTIONAL: No apparent distress. HEENT: Head is normocephalic. Pupils are equal, round. Sclerae anicteric. Mucous membranes of the mouth are moist. No JVD. No carotid bruit. CHEST EXAMINATION: Lungs are clear to auscultation. No chest wall tenderness is noted on palpation or with deep breathing. HEART EXAMINATION: Tachycardic rate and rhythm. S1, S2 heard. No murmurs, gallops or rub. ABDOMEN: Soft, nontender. Positive bowel sounds. EXTREMITIES: 2+ peripheral pulses, 2+ lower extremity edema and no calf tenderness. SKIN:intact NEUROLOGIC EXAMINATION: Patient is awake, alert and oriented x3. ASSESSMENT ETOH abuse Short RP tachycardia Acute Kidney injury- improved with IV fluids Hypomagnesemia- replaced PLAN -Continue metoprolol succinate 25mg daily -Per primary team, patient is being discharge, from cardiology perspective, p atient stable for discharge -Patient to follow up in the outpatient office with Dr. Lovett Nurse Practitioner note has been reviewed, I agree with a documented findings and plan of care. Patient was seen and examined. Objective - Vital Signs Vital signs: Vital Signs Temp 98.3 F 12/28/20 16:20 Pulse 98 12/28/20 18:11 Resp 18 12/28/20 16:39 BP 120/75 12/28/20 18:11 Pulse Ox 98 12/28/20 12:00 Intake & Output 12/28/20 12/28/20 12/29/20 06:59 18:59 06:59 Intake Total 540 929 Output Total 1400 1581 Balance -860 -652 Weight 91.5 kg 91.5 kg Intake: Oral 540 929 Output: Urine 1400 1581 Other: Voiding Method Indwelling Catheter Indwelling Catheter - Labs CBC & Chem 7: 12/27/20 04:23 12/27/20 04:23 Labs: Abnormal Lab Results - Last 24 Hours (Table) 12/27/20 Range/Units 04:23 Acetone, Qual 15 H (Negative) mg/dL
--- NOTE | 2020-12-29 15:16 | P.DS ---
Providers Date of admission: 12/26/20 14:36 Expected date of discharge: 12/29/20 Attending physician: Anay Bowie DO Consults: 12/26/20 14:36 Consult Physician Stat Consulting Provider: Franky Mills Consult Reason/Comments: icu patient Do you want consulting provider notified?: Yes 12/26/20 15:07 Consult Physician Urgent Consulting Provider: Ayden Stephen Consult Reason/Comments: tachydysrhythmia Do you want consulting provider notified?: Yes Primary care physician: Stated None Hospital Course: Alcohol abuse currently in Acute alcohol withdrawal -Scheduled Valium 2 mg 4 times daily --> 2mg TID on 12/27 -->d/c'd on 12/28 --> minimal ativan requirement in prior 24 hours with good CIWA scores. -Zofran as needed for nausea and vomiting. -Daily thiamine, folic acid on discharge -Prescribed antabuse on discharge -Rehab information provided to patient. Sinus Tachycardia versus long RP tachycardia -Patient diagnosed with atrial fibrillation with RVR in the emergency department and started on anticoagulation with heparin. - reviewed EKGs and tele, I have low suspicion for AFib -He was given Cardizem bolus followed by infusion. - stopped dilt gtt and heparin on 12/27 -Continuous telemetry monitoring -Cardiology consult, appreciate recommendations. - s/p adenosine 12mg and 6mg, with continuation of long RP/short [place] tachycardia - rate control improving with control of withdrawal and metoprolol 25mg XL daily, which he was discharged on -LR Bolus on 12/27 and 12/28 History of Pancreatitis -Lipase 387 -Symptomatic care and pain management --> patient tolerated diet and denied abdominal pain by second day of evaluation -Zofran for nausea Acute kidney injury, resolved -Acute kidney injury with BUN 23, creatinine 1.33, and GFR of 61, (previous labs done on 10/10/20 revealed BUN 9, creatinine 0.7, and GFR 107). -Acute kidney injury likely secondary to dehydration secondary to current alcoholic ketoacidosis resulting from acute alcohol withdrawal. -Patient to receive continued hydration with IV fluids. -Cr was 0.8 on repeat labs. I spent 35 minutes preparing this discharge Assessment: Gen: awake, alert HEENT: normocephalic, atraumatic, good hearing acuity, moist mucous membranes Resp: good air exchange, breathing comfortably with no accessory muscle use CVS: good distal perfusion x 4, tachycardic GI: soft, NTTP, ND : no SPT, no CVAT, vasquez catheter not present MSK: no pitting edema, no clubbing Neuro: non-focal, moving all extremities Psych: cooperative, euthymic mood Patient Condition at Discharge: Good Plan - Discharge Summary New Discharge Prescriptions: New Metoprolol Succinate (ER) [Toprol XL] 25 mg PO DAILY #30 tab.er.24h Disulfiram [Antabuse] 250 mg PO DAILY #30 tablet Folic Acid 1 mg PO DAILY #30 tab Thiamine [Vitamin B-1] 100 mg PO BID-W/MEALS #60 tab Continue Ondansetron [Zofran] 4 mg PO Q8HR PRN PRN Reason: Nausea Pantoprazole Sodium [Protonix] 40 mg PO DAILY DULoxetine HCL [Cymbalta] 20 mg PO BID Discontinued Propranolol [Inderal] 10 mg PO DAILY PRN PRN Reason: Anxiety Discharge Medication List DULoxetine HCL [Cymbalta] 20 mg PO BID 12/26/20 [History] Ondansetron [Zofran] 4 mg PO Q8HR PRN 12/26/20 [History] Pantoprazole Sodium [Protonix] 40 mg PO DAILY 12/26/20 [History] Disulfiram [Antabuse] 250 mg PO DAILY #30 tablet 12/29/20 [Rx] Folic Acid 1 mg PO DAILY #30 tab 12/29/20 [Rx] Metoprolol Succinate (ER) [Toprol XL] 25 mg PO DAILY #30 tab.er.24h 12/29/20 [Rx] Thiamine [Vitamin B-1] 100 mg PO BID-W/MEALS #60 tab 12/29/20 [Rx] Follow up Appointment(s)/Referral(s): Felix Lovett MD [STAFF PHYSICIAN] - 2 Weeks (Office to call with appointment date and time.) None,Stated [Primary Care Provider] - 1-2 days Patient Instructions/Handouts: Pancreatitis (DC), Abuse of Alcohol (DC) Discharge/Stand Alone Forms: Who Do I Call?, AA Meetings, Community Resources, Outpatient Counseling Discharge Disposition: HOME SELF-CARE
== END 2020-12-29 13:27 | disposition home or self-care (01) | DRG 897 ==
LOC: EC 08:39 → 2SICU 14:36 → 3SCARD 12-27 12:15
PROVIDERS: ADMIT Internal Medicine; ATTEND Internal Medicine
DX: F10.239 Alcohol dependence with withdrawal, unspecified (principal); E87.2 Acidosis; I47.1 Supraventricular tachycardia; N17.9 Acute kidney failure, unspecified; D69.59 Other secondary thrombocytopenia; E83.42 Hypomagnesemia; E86.0 Dehydration; F32.9 Major depressive disorder, single episode, unspecified; G40.909 Epilepsy, unspecified, not intractable, without status epilepticus; I48.91 Unspecified atrial fibrillation; Z20.822 Contact with and (suspected) exposure to COVID-19; R74.8 Abnormal levels of other serum enzymes; Z79.899 Other long term (current) drug therapy
CPT/HCPCS: 36415; 71045; 80053; 80306; 80320; 81001; 82009; 83605; 83690; 83735; 83930; 84100; 84600; 85025; 85027; 85610; 85730; 86140; 87635; 93005; 96361; 96372; 96374; 96376; 99285

== ENCOUNTER 2021-06-27 15:46 | Inpatient (IN) | payer OTHER ==
[2021-06-27] MEDS ORDERED: HYDROmorphone 0.5 MG/0.5 ML SYRINGE IVP STA ×2 (17:07→17:54)
[2021-06-27] MEDS ORDERED: ONDANSETRON 4 MG/2 ML VIAL IVP STA ×2 (17:07→17:54)
[2021-06-27] MEDS ORDERED: LORazepam 2 MG/ML INJ IV STA (17:07)
[2021-06-27] MEDS ORDERED: SODIUM CHLORIDE 0.9% 2,000 ML IV ONE (17:07)
--- NOTE | 2021-06-27 17:07 | ED ---
General Adult HPI - General Stated complaint: pancreatitis Time Seen by Provider: 06/27/21 17:05 Source: patient, RN notes reviewed Mode of arrival: ambulatory Limitations: no limitations - History of Present Illness Initial comments: 56-year-old male presents emergency Department chief complaint abdominal pain, nausea vomiting. Patient's symptoms started yesterday. Patient is concerned about possible pancreatitis. There is a diarrhea constipation. Patient does have a history of alcohol abuse, still continues to drink. Patient denies any melanotic or tarry stools.patient has no dysuria no hematuria patient states that he felt that he saw some specks of blood in his emesis. Patient complains of severe abdominal pain. - Related Data Home Medications Medication Instructions Recorded Confirmed Metoprolol Succinate (ER) [Toprol 50 mg PO DAILY 06/27/21 06/27/21 Xl] lisinopriL [Zestril] 2.5 mg PO DAILY 06/27/21 06/27/21 Allergies Allergy/AdvReac Type Severity Reaction Status Date / Time No Known Allergies Allergy Verified 06/27/21 18:25 Review of Systems ROS Statement: Those systems with pertinent positive or pertinent negative responses have been documented in the HPI. ROS Other: All systems not noted in ROS Statement are negative. Past Medical History Past Medical History: Seizure Disorder Additional Past Medical History / Comment(s): pancreatitis History of Any Multi-Drug Resistant Organisms: None Reported Past Surgical History: Joint Replacement, Orthopedic Surgery Past Anesthesia/Blood Transfusion Reactions: No Reported Reaction Past Psychological History: No Psychological Hx Reported Smoking Status: Never smoker, Second hand smoke exposure Past Alcohol Use History: Abuse, Heavy Past Drug Use History: Cocaine, Marijuana General Exam General appearance: alert, in no apparent distress Head exam: Present: atraumatic, normocephalic, normal inspection Eye exam: Present: normal appearance, PERRL, EOMI. Absent: scleral icterus, conjunctival injection, periorbital swelling ENT exam: Present: normal exam, normal oropharynx, mucous membranes moist Neck exam: Present: normal inspection, full ROM. Absent: tenderness, men ingismus, lymphadenopathy Respiratory exam: Present: normal lung sounds bilaterally. Absent: respiratory distress, wheezes, rales, rhonchi, stridor Cardiovascular Exam: Present: regular rate, normal rhythm, normal heart sounds. Absent: systolic murmur, diastolic murmur, rubs, gallop, clicks GI/Abdominal exam: Present: soft, tenderness, normal bowel sounds. Absent: distended, guarding, rebound, rigid Back exam: Absent: CVA tenderness (R) Neurological exam: Present: alert, oriented X3 Skin exam: Present: warm, dry, intact, normal color. Absent: rash Course Vital Signs 06/27/21 17:05 Temperature 98.3 F Pulse Rate 97 Respiratory 16 Rate Blood Pressure 146/67 O2 Sat by Pulse 100 Oximetry Medical Decision Making - Medical Decision Making Patient's found to be having acute alcohol withdrawal, daily hydrated with acute kidney injury, alcoholic ketoacidosis with bicarbonate 12, anion gap 33 with 4+ ketones. Patiently admitted for fluid hydration, withdrawal protocol - Lab Data Result diagrams: 06/27/21 17:28 06/27/21 17:28 Lab Results 06/27/21 06/27/21 06/27/21 Range/Units 17:28 17:28 17:28 WBC 8.8 (3.8-10.6) k/uL RBC 4.63 (4.30-5.90) m/uL Hgb 10.4 L (13.0-17.5) gm/dL Hct 34.0 L (39.0-53.0) % MCV 73.4 L (80.0-100.0) fL MCH 22.4 L (25.0-35.0) pg MCHC 30.6 L (31.0-37.0) g/dL RDW 21.5 H (11.5-15.5) % Plt Count 295 (150-450) k/uL MPV 6.8 Neutrophils % 83 % Lymphocytes % 4 % Monocytes % 9 % Eosinophils % 0 % Basophils % 0 % Neutrophils # 7.3 (1.3-7.7) k/uL Lymphocytes # 0.4 L (1.0-4.8) k/uL Monocytes # 0.8 (0-1.0) k/uL Eosinophils # 0.0 (0-0.7) k/uL Basophils # 0.0 (0-0.2) k/uL Hypochromasia Marked Anisocytosis Moderate Microcytosis Marked Sodium 140 (137-145) mmol/L Potassium 3.9 (3.5-5.1) mmol/L Chloride 95 L (98-107) mmol/L Carbon Dioxide 12 L (22-30) mmol/L Anion Gap 33 mmol/L BUN 15 (9-20) mg/dL Creatinine 1.43 H (0.66-1.25) mg/dL Est GFR (CKD-EPI)AfAm 64 (>60 ml/min/1.73 sqM) Est GFR (CKD-EPI)NonAf 55 (>60 ml/min/1.73 sqM) Glucose 136 H (74-99) mg/dL Plasma Lactic Acid Nawaf 3.0 H* (0.7-2.0) mmol/L Calcium 10.0 (8.4-10.2) mg/dL Magnesium 1.7 (1.6-2.3) mg/dL Total Bilirubin 1.2 (0.2-1.3) mg/dL AST 44 (17-59) U/L ALT 29 (4-49) U/L Alkaline Phosphatase 69 (38-126) U/L Total Protein 8.6 H (6.3-8.2) g/dL Albumin 5.3 H (3.5-5.0) g/dL Amylase 109 (30-110) U/L Lipase 88 (23-300) U/L Urine Color Urine Appearance (Clear) Urine pH (5.0-8.0) Ur Specific [place] (1.001-1.035) Urine Protein (Negative) Urine Glucose (UA) (Negative) Urine Ketones (Negative) Urine Blood (Negative) Urine Nitrite (Negative) Urine Bilirubin (Negative) Urine Urobilinogen (<2.0) mg/dL Ur Leukocyte Esterase (Negative) Serum Alcohol <10 mg/dL 06/27/21 Range/Units 18:47 WBC (3.8-10.6) k/uL RBC (4.30-5.90) m/uL Hgb (13.0-17.5) gm/dL Hct (39.0-53.0) % MCV (80.0-100.0) fL MCH (25.0-35.0) pg MCHC (31.0-37.0) g/dL RDW (11.5-15.5) % Plt Count (150-450) k/uL MPV Neutrophils % % Lymphocytes % % Monocytes % % Eosinophils % % Basophils % % Neutrophils # (1.3-7.7) k/uL Lymphocytes # (1.0-4.8) k/uL Monocytes # (0-1.0) k/uL Eosinophils # (0-0.7) k/uL Basophils # (0-0.2) k/uL Hypochromasia Anisocytosis Microcytosis Sodium (137-145) mmol/L Potassium (3.5-5.1) mmol/L Chloride (98-107) mmol/L Carbon Dioxide (22-30) mmol/L Anion Gap mmol/L BUN (9-20) mg/dL Creatinine (0.66-1.25) mg/dL Est GFR (CKD-EPI)AfAm (>60 ml/min/1.73 sqM) Est GFR (CKD-EPI)NonAf (>60 ml/min/1.73 sqM) Glucose (74-99) mg/dL Plasma Lactic Acid Nawaf (0.7-2.0) mmol/L Calcium (8.4-10.2) mg/dL Magnesium (1.6-2.3) mg/dL Total Bilirubin (0.2-1.3) mg/dL AST (17-59) U/L ALT (4-49) U/L Alkaline Phosphatase (38-126) U/L Total Protein (6.3-8.2) g/dL Albumin (3.5-5.0) g/dL Amylase (30-110) U/L Lipase (23-300) U/L Urine Color Light Yellow Urine Appearance Clear (Clear) Urine pH 5.5 (5.0-8.0) Ur Specific [place] 1.017 (1.001-1.035) Urine Protein Trace H (Negative) Urine Glucose (UA) Negative (Negative) Urine Ketones 4+ H (Negative) Urine Blood Negative (Negative) Urine Nitrite Negative (Negative) Urine Bilirubin Negative (Negative) Urine Urobilinogen <2.0 (<2.0) mg/dL Ur Leukocyte Esterase Negative (Negative) Serum Alcohol mg/dL Disposition Clinical Impression: Dehydration, Alcohol withdrawal, Alcoholic ketoacidosis, Acute kidney injury Disposition: ADMITTED IP TO THIS [facility] Condition: Serious Referrals: Nabila Tillman MD [Primary Care Provider] - 1-2 days
[2021-06-27 17:45] LABS: Anisocytosis Moderate; Basophils % (A) 0 %; Eosinophils % (A) 0 %; HGB 10.4 gm/dL (13.0-17.5); Hypochromasia Marked; Lymphocytes # (A) 0.4 k/uL (1.0-4.8); Lymphocytes % (A) 4 %; MCH 22.4 pg (25.0-35.0); MCHC 30.6 g/dL (31.0-37.0); MCV 73.4 fL (80.0-100.0); Mean Platelet Volume 6.8; Microcytosis Marked; Monocytes # (A) 0.8 k/uL (0-1.0); Monocytes % (A) 9 %; Neutrophils # (A) 7.3 k/uL (1.3-7.7); Neutrophils % (A) 83 %; Platelet Count 295 k/uL (150-450); RBC 4.63 m/uL (4.30-5.90); RDW 21.5 % (11.5-15.5); WBC 8.8 k/uL (3.8-10.6)
[2021-06-27 17:47] LABS: ALT 29 U/L (4-49); AST 44 U/L (17-59); African American GFR (CKD) 64 (>60 ml/min/1.73 sqM); Albumin 5.3 g/dL (3.5-5.0); Alcohol <10 mg/dL; Alkaline Phosphatase 69 U/L (38-126); Amylase 109 U/L (30-110); Anion Gap 33 mmol/L; Blood Urea Nitrogen 15 mg/dL (9-20); Carbon Dioxide 12 mmol/L (22-30); Chloride 95 mmol/L (98-107); Glucose 136 mg/dL (74-99); Lipase 88 U/L (23-300); Magnesium 1.7 mg/dL (1.6-2.3); Non-African American GFR(CKD) 55 (>60 ml/min/1.73 sqM); Potassium 3.9 mmol/L (3.5-5.1); Sodium 140 mmol/L (137-145); Total Bilirubin 1.2 mg/dL (0.2-1.3); Total Protein 8.6 g/dL (6.3-8.2)
[2021-06-27 19:08] LABS: Appearance,Urine Clear (Clear); Bilirubin,Urine Negative (Negative); Blood,Urine Negative (Negative); Color,Urine Light Yellow; Glucose,Urine (UA) Negative (Negative); Ketones,Urine 4+ (Negative); Leukocyte Esterase,Urine Negative (Negative); Nitrite,Urine Negative (Negative); PH, Urine 5.5 (5.0-8.0); Protein,Urine Trace (Negative); Specific Gravity,Urine 1.017 (1.001-1.035); Urobilinogen,Urine <2.0 mg/dL (<2.0)
[2021-06-27] MEDS ORDERED: LORazepam 2 MG/ML INJ IV PRN (19:22)
[2021-06-27] MEDS ORDERED: PANTOPRAZOLE 40 MG/10 ML VIAL IVP STA (19:23)
[2021-06-27] MEDS ORDERED: ONDANSETRON 4 MG/2 ML VIAL IVP PRN (19:33)
[2021-06-27] MEDS ORDERED: LIDOCAINE VISCOUS 2% 15 ML CUP MUCOUS MEM ONE (19:33)
[2021-06-27] MEDS ORDERED: NALOXONE 0.4 MG/ML 1 ML VIAL IV PRN (19:33)
[2021-06-27] MEDS ORDERED: HYDROmorphone 0.5 MG/0.5 ML SYRINGE IVP PRN (19:33)
[2021-06-27] MEDS: THIAMINE 100 MG TAB PO SCH (19:39)
[2021-06-27] MEDS: SODIUM CHLORIDE 0.9% 1,000 ML IV SCH (19:40)
[2021-06-27] MEDS: LORazepam 2 MG/ML INJ IV PRN ×3 (19:48→22:04)
[2021-06-27] MEDS: PANTOPRAZOLE 40 MG/10 ML VIAL IV SCH (21:02)
--- NOTE | 2021-06-27 23:33 | P.HPIM ---
History of Present Illness H&P Date: 06/27/21 Patient is a 56-year-old male with a PMH of hypertension and long-standing alcohol abuse who presents to the emergency room for complaints of nausea, vomiting, and anxiety. The patient reports that he usually drinks 5-6 large drinks of whiskey daily and has been doing so for the past several decades. He notes however that earlier today, he developed acute onset nausea and vomiting with multiple episodes of non-bloody none bilious vomiting, due to which he was unable to drink as per usual. He reports that in the evening, he started feeling shaky and very anxious, which prompted him to come to the emergency room. Notes that his last episode of vomiting was roughly an hour prior to evaluation. He denies chest pain, short of breath, abdominal pain, or diarrhea. Denied fever, chills, cough. After evaluation was remarkable for hemoglobin of 10.4, MCV 73.4, CO2 12, creatinine 1.43, lactic acid 3.0, UA unremarkable, and a serum alcohol level of less than 10. The patient was admitted for further management for alcohol withdrawal with nausea and vomiting. Review of systems: Pertinent positives and negatives as discussed in HPI, a complete review of systems was performed and all other systems are negative. Physical examination: General: non toxic, no distress, appears at stated age, normal weight Derm: no unusual rashes/lesions no unusual ecchymoses, warm, dry Head: atraumatic, normocephalic, symmetric Eyes: EOMI, no lid lag, anicteric sclera, pupils equal round reactive to light ENT: Nose and ears atraumatic, no thrush, no pharyngeal erythema Neck: No thyromegaly, no cervical lymphadenopathy, trachea midline, supple Mouth: no lip lesion, mucus membranes moist Cardiovascular: S1S2 reg, no murmur, positive posterior tibial pulse bilateral, no edema, capillary refill less than 2 seconds Lungs: CTA bilateral, no rhonchi, no rales , no accessory muscle use Abdominal: soft, nontender to palpation, no guarding, no appreciable organomegaly, normal bowel sounds Ext: no gross muscle atrophy, muscle strength 5 out of 5 in all 4 extremities grossly, no contractures, Neuro: CN II-XI grossly intact, light touch intact all 4 extremities, finger to nose within normal limits, fine outstretched hand tremor, some tongue fasciculations Psych: Alert, oriented, appropriate affect Assessment/plan Alcohol abuse with impending withdrawal -[facility] protocol -Thiamine -IV fluids -Fall, aspiration precautions -Protonix Nausea and vomiting -Suspected viral gastroenteritis -Conservative management with IV fluids Lactic acidosis -Likely secondary to dehydration -Monitor for resolution -IV fluids Acute kidney injury -Due to above -IV fluids and monitor Microcytic anemia -Check iron panel -Check FOBT DVT prophylaxis -Heparin subq The patient is admitted with an anticipated greater than 2 midnight stay for evaluation of EtOH withdrawal CODE STATUS: Full Code Discussed with: Patient Anticipated discharge date: 2-[address]: Home Past Medical History Past Medical History: Seizure Disorder Additional Past Medical History / Comment(s): pancreatitis History of Any Multi-Drug Resistant Organisms: None Reported Past Surgical History: Joint Replacement, Orthopedic Surgery Past Anesthesia/Blood Transfusion Reactions: No Reported Reaction Past Psychological History: No Psychological Hx Reported Smoking Status: Never smoker, Second hand smoke exposure Past Alcohol Use History: Abuse, Heavy Past Drug Use History: Cocaine, Marijuana Medications and Allergies Home Medications Medication Instructions Recorded Confirmed Type Metoprolol Succinate (ER) [Toprol 50 mg PO DAILY 06/27/21 06/27/21 History Xl] lisinopriL [Zestril] 2.5 mg PO DAILY 06/27/21 06/27/21 History Allergies Allergy/AdvReac Type Severity Reaction Status Date / Time No Known Allergies Allergy Verified 06/27/21 18:25 Physical Exam Vitals: Vital Signs Temp Pulse Resp BP Pulse Ox 06/27/21 22:02 130 H 18 98 06/27/21 20:47 131 H 18 132/81 98 06/27/21 19:40 138 H 20 136/84 97 06/27/21 17:05 98.3 F 97 16 146/67 100 Intake and Output 06/27/21 06/27/21 06/28/21 14:59 22:59 06:59 Other: Weight 81.647 kg Results CBC & Chem 7: 06/27/21 17:28 06/27/21 17:28 Labs: Abnormal Lab Results - Last 24 Hours (Table) 06/27/21 06/27/21 06/27/21 Range/Units 17:28 17:28 17:28 Hgb 10.4 L (13.0-17.5) gm/dL Hct 34.0 L (39.0-53.0) % MCV 73.4 L (80.0-100.0) fL MCH 22.4 L (25.0-35.0) pg MCHC 30.6 L (31.0-37.0) g/dL RDW 21.5 H (11.5-15.5) % Lymphocytes # 0.4 L (1.0-4.8) k/uL Chloride 95 L (98-107) mmol/L Carbon Dioxide 12 L (22-30) mmol/L Creatinine 1.43 H (0.66-1.25) mg/dL Glucose 136 H (74-99) mg/dL Plasma Lactic Acid Nawaf 3.0 H* (0.7-2.0) mmol/L Total Protein 8.6 H (6.3-8.2) g/dL Albumin 5.3 H (3.5-5.0) g/dL Urine Protein (Negative) Urine Ketones (Negative) 06/27/21 Range/Units 18:47 Hgb (13.0-17.5) gm/dL Hct (39.0-53.0) % MCV (80.0-100.0) fL MCH (25.0-35.0) pg MCHC (31.0-37.0) g/dL RDW (11.5-15.5) % Lymphocytes # (1.0-4.8) k/uL Chloride (98-107) mmol/L Carbon Dioxide (22-30) mmol/L Creatinine (0.66-1.25) mg/dL Glucose (74-99) mg/dL Plasma Lactic Acid Nawaf (0.7-2.0) mmol/L Total Protein (6.3-8.2) g/dL Albumin (3.5-5.0) g/dL Urine Protein Trace H (Negative) Urine Ketones 4+ H (Negative)
[2021-06-28] MEDS: HEPARIN SODIUM,PORCINE/PF 5,000 UNIT/0.5 ML SYRINGE SQ SCH ×4 (01:12→22:43)
[2021-06-28] MEDS: THIAMINE 100 MG TAB PO SCH ×2 (06:36→17:42)
[2021-06-28] MEDS: SODIUM CHLORIDE 0.9% 1,000 ML IV SCH (06:36)
[2021-06-28 07:58] LABS: Anisocytosis Moderate; HCT 26.7 % (39.0-53.0); Hypochromasia Marked; MCH 22.4 pg (25.0-35.0); MCHC 29.9 g/dL (31.0-37.0); MCV 74.9 fL (80.0-100.0); Microcytosis Marked; Platelet Count 200 k/uL (150-450); RBC 3.56 m/uL (4.30-5.90); RDW 21.5 % (11.5-15.5); WBC 4.9 k/uL (3.8-10.6)
[2021-06-28 08:04] LABS: ALT 21 U/L (4-49); AST 32 U/L (17-59); African American GFR (CKD) >90 (>60 ml/min/1.73 sqM); Albumin 3.4 g/dL (3.5-5.0); Alkaline Phosphatase 41 U/L (38-126); Anion Gap 9 mmol/L; Blood Urea Nitrogen 14 mg/dL (9-20); Calcium 8.6 mg/dL (8.4-10.2); Carbon Dioxide 23 mmol/L (22-30); Chloride 107 mmol/L (98-107); Glucose 113 mg/dL (74-99); Non-African American GFR(CKD) 85 (>60 ml/min/1.73 sqM); Potassium 3.7 mmol/L (3.5-5.1); Sodium 139 mmol/L (137-145); Total Bilirubin 0.7 mg/dL (0.2-1.3); Total Protein 6.2 g/dL (6.3-8.2)
[2021-06-28] MEDS: diazePAM 5 MG TAB PO SCH ×2 (09:10→20:12)
[2021-06-28] MEDS: DEXTROSE 5%-0.45% NACL 1,000 ML IV SCH ×2 (09:10→20:13)
[2021-06-28] MEDS: PANTOPRAZOLE 40 MG/10 ML VIAL IV SCH (09:13)
[2021-06-28 15:46] LABS: % Iron Saturation 9.12 (15.00-50.00); Ferritin 24.7 ng/mL (22.0-322.0); Iron 33 ug/dL (65-175); Total Iron Binding Capacity 358 ug/dL (228-460)
--- NOTE | 2021-06-28 16:10 | P.PN ---
Subjective Patient is doing well today. No evidence of withdrawal this morning when I saw him. Objective - Vital Signs Vital signs: Vital Signs Temp 96.7 F L 06/28/21 11:19 Pulse 95 06/28/21 12:17 Resp 18 06/28/21 11:19 BP 121/74 06/28/21 11:19 Pulse Ox 99 06/28/21 11:19 Intake & Output 06/27/21 06/28/21 06/28/21 18:59 06:59 18:59 Intake Total 480 Output Total 400 Balance -400 480 Weight 81.647 kg 81.3 kg Intake: Oral 480 Output: Urine 400 Other: Voiding Method Urinal - Exam General: The patient is awake and alert, in no distress Eye: there is normal conjunctiva bilaterally. Neck: The neck is supple, there is no JVD. Cardiovascular: Normal S1-S2, no S3-S4, no murmurs. Respiratory: Lungs clear to auscultation bilaterally Gastrointestinal: Abdomen is soft, nontender Musculoskeletal: There is no pedal edema. Neurological:. Speech is normal. Skin: Skin is warm and dry - Labs CBC & Chem 7: 06/28/21 07:18 06/28/21 07:18 Labs: Abnormal Lab Results - Last 24 Hours (Table) 06/27/21 06/27/21 06/27/21 Range/Units 17:28 17:28 17:28 RBC (4.30-5.90) m/uL Hgb 10.4 L (13.0-17.5) gm/dL Hct 34.0 L (39.0-53.0) % MCV 73.4 L (80.0-100.0) fL MCH 22.4 L (25.0-35.0) pg MCHC 30.6 L (31.0-37.0) g/dL RDW 21.5 H (11.5-15.5) % Lymphocytes # 0.4 L (1.0-4.8) k/uL Chloride 95 L (98-107) mmol/L Carbon Dioxide 12 L (22-30) mmol/L Creatinine 1.43 H (0.66-1.25) mg/dL Glucose 136 H (74-99) mg/dL Plasma Lactic Acid Nawaf 3.0 H* (0.7-2.0) mmol/L Iron (65-175) ug/dL % Saturation (15.00-50.00) Total Protein 8.6 H (6.3-8.2) g/dL Albumin 5.3 H (3.5-5.0) g/dL Urine Protein (Negative) Urine Ketones (Negative) 06/27/21 06/28/21 06/28/21 Range/Units 18:47 07:18 07:18 RBC 3.56 L (4.30-5.90) m/uL Hgb 8.0 L D (13.0-17.5) gm/dL Hct 26.7 L (39.0-53.0) % MCV 74.9 L (80.0-100.0) fL MCH 22.4 L (25.0-35.0) pg MCHC 29.9 L (31.0-37.0) g/dL RDW 21.5 H (11.5-15.5) % Lymphocytes # (1.0-4.8) k/uL Chloride (98-107) mmol/L Carbon Dioxide (22-30) mmol/L Creatinine (0.66-1.25) mg/dL Glucose 113 H (74-99) mg/dL Plasma Lactic Acid Nawaf (0.7-2.0) mmol/L Iron 33 L (65-175) ug/dL % Saturation 9.12 L (15.00-50.00) Total Protein 6.2 L (6.3-8.2) g/dL Albumin 3.4 L (3.5-5.0) g/dL Urine Protein Trace H (Negative) Urine Ketones 4+ H (Negative) Assessment and Plan Assessment: Alcohol abuse with impending withdrawal -[facility] protocol -Thiamine -IV fluids -Fall, aspiration precautions -Protonix Nausea and vomiting, resolved -Suspected alcoholic gastritis -Conservative management Lactic acidosis -Resolved with IV fluids Acute kidney injury -Due to above Iron deficiency anemia -Started on iron supplement -Patient needs colonoscopy outpatient DVT prophylaxis -Heparin subq CODE STATUS: Full Code
[2021-06-28] MEDS: FERROUS SULFATE 325 MG TAB PO SCH (17:42)
[2021-06-28] MEDS: LORazepam 2 MG/ML INJ IV PRN ×2 (17:42→23:14)
[2021-06-28] MEDS: PANTOPRAZOLE 40 MG TABLET PO SCH (17:42)
[2021-06-29] MEDS: LORazepam 2 MG/ML INJ IV PRN ×2 (04:02→23:10)
[2021-06-29] MEDS: PANTOPRAZOLE 40 MG TABLET PO SCH ×2 (06:19→17:45)
[2021-06-29] MEDS: FERROUS SULFATE 325 MG TAB PO SCH ×2 (06:19→17:45)
[2021-06-29] MEDS: THIAMINE 100 MG TAB PO SCH ×2 (06:19→17:45)
[2021-06-29 08:04] LABS: Anisocytosis Moderate; HCT 28.2 % (39.0-53.0); HGB 8.3 gm/dL (13.0-17.5); Hypochromasia Marked; MCH 21.9 pg (25.0-35.0); MCHC 29.5 g/dL (31.0-37.0); MCV 74.3 fL (80.0-100.0); Mean Platelet Volume 7.2; Microcytosis Marked; Platelet Count 187 k/uL (150-450); RDW 21.3 % (11.5-15.5); WBC 2.8 k/uL (3.8-10.6)
[2021-06-29 09:06] LABS: Prothrombin Time 10.7 sec (9.0-12.0)
[2021-06-29 09:08] LABS: ALT 26 U/L (4-49); AST 49 U/L (17-59); African American GFR (CKD) >90 (>60 ml/min/1.73 sqM); Albumin 3.2 g/dL (3.5-5.0); Alkaline Phosphatase 41 U/L (38-126); Anion Gap 7 mmol/L; Blood Urea Nitrogen 9 mg/dL (9-20); Calcium 8.6 mg/dL (8.4-10.2); Carbon Dioxide 23 mmol/L (22-30); Chloride 106 mmol/L (98-107); Glucose 101 mg/dL (74-99); Non-African American GFR(CKD) >90 (>60 ml/min/1.73 sqM); Potassium 3.4 mmol/L (3.5-5.1); Sodium 136 mmol/L (137-145); Total Bilirubin 0.5 mg/dL (0.2-1.3)
[2021-06-29] MEDS: diazePAM 5 MG TAB PO SCH ×2 (09:17→20:03)
[2021-06-29] MEDS ORDERED: Potassium Replacement Protocol 1 EACH MISC MISCELLANE PRN (10:28)
[2021-06-29 10:47] LABS: Eosinophils # (M) 0.03 k/uL (0-0.7); Lymphocytes # (M) 0.76 k/uL (1.0-4.8); Monocytes # (M) 0.45 k/uL (0-1.0); Neutrophils # (M) 1.57 k/uL (1.3-7.7); Neutrophils % (M) 56 %; Nucleated Red Blood Cells 0 /100 WBC (0-0); Total Cells Counted 100
[2021-06-29] MEDS ORDERED: POTASSIUM CHLORIDE ER 20 MEQ TAB.ER PO SCH (11:00)
--- NOTE | 2021-06-29 11:43 | P.CONS ---
History of Present Illness - Reason for Consult Consult date: 06/29/21 Coffee-ground emesis, black tarry stools Requesting physician: Camelia Redman - Chief Complaint Abdominal pain, nausea and vomiting - History of Present Illness This is a 6-year-old male with a history of a can for alcohol abuse and polysubstance abuse who presented to the emergency department 2 days ago with complaints of abdominal pain associated with nausea and vomiting. Patient thought he may have pancreatitis as he's had in the past. He states that he has been drinking greater than 15 years at least 2-5 alcohol drinks a day. States that he had small amounts of coffee-ground emesis prior to coming to the emergency department and then yesterday evening he started having loose black stools. On admission he had a hemoglobin of 10.4 with a drop to today of 8. Iron studies are consistent with iron deficiency anemia. LFTs are normal as well as amylase and lipase. As previously admitted in September of this year with pancreatitis and associated abdominal pain with nausea and vomiting. He underwent an EGD at that time with findings of diminutive nonbleeding duodenal ulcer without high rrisk stigmata for bleeding, moderate duodenitis, mild gastritis, LA grade C esophagitis. Review of Systems REVIEW OF SYSTEMS: CARDIOPULMONARY: No chest pain or shortness of breath. Gastrointestinal: No abdominal pain currently. Coffee-ground emesis. Loose black stools. GENITOURINARY: No dysuria or hematuria. MUSCULOSKELETAL: Reports normal range of motion., Joint pain. SKIN: No rashes. No jaundice. ENDOCRINE: No chills, fevers. No excessive weight gain or loss. No polydipsia or polyuria. PSYCHIATRIC: Unremarkable. NEUROLOGY: No change in mental status. Denies dizziness, headache. ENT: Vision unremarkable. CONSTITUTIONAL: No recent weight loss. No fever, chills, night sweats. Past Medical History Past Medical History: Seizure Disorder Additional Past Medical History / Comment(s): pancreatitis History of Any Multi-Drug Resistant Organisms: None Reported Past Surgical History: Joint Replacement, Orthopedic Surgery Past Anesthesia/Blood Transfusion Reactions: No Reported Reaction Past Psychological History: No Psychological Hx Reported Smoking Status: Never smoker, Second hand smoke exposure Past Alcohol Use History: Abuse, Heavy Past Drug Use History: Cocaine, Marijuana Medications and Allergies Home Medications Medication Instructions Recorded Confirmed Type Metoprolol Succinate (ER) [Toprol 50 mg PO DAILY 10/06/21 10/06/21 History Xl] lisinopriL [Zestril] 2.5 mg PO DAILY 06/27/21 06/27/21 History Allergies Allergy/AdvReac Type Severity Reaction Status Date / Time No Known Allergies Allergy Verified 06/27/21 18:25 Physical Exam Vitals: Vital Signs Temp Pulse Resp BP BP Pulse Ox 06/29/21 04:00 86 18 119/66 100 06/28/21 23:15 92 16 137/77 99 06/28/21 20:09 98.5 F 76 16 115/66 99 06/28/21 16:00 96.6 F L 86 18 121/70 100 06/28/21 12:17 95 06/28/21 11:19 96.7 F L 95 18 121/74 99 Intake and Output 06/28/21 06/29/21 06/29/21 22:59 06:59 14:59 Intake Total 635 Output Total 210 Balance 635 -210 Intake: Intake, IV Titration 75 Amount Dextrose 5%-0.45% NaCl 1, 75 000 ml @ 75 mls/hr IV . [id number] [facility] Rx#:[id number] Oral 560 Output: Urine 210 Other: # Voids 1 Weight 82 kg General appearance: The patient is alert, oriented, appears in no acute distress. HET: Head is normocephalic and atraumatic. Conjunctiva pink. Sclera anicteric. Neck: Supple without lymphadenopathy. Trachea midline. Heart: S1 S2. Regular rate and rhythm. Lungs: Clear to auscultation. Abdomen: Soft, nontender,, nondistended with bowel sounds. No guarding or rigidity. Skin: No rashes. No jaundice. Extremities: Normal skin color and turgor. No pedal edema. Neurological: No focal deficits. Alert and oriented 3.. Results CBC & Chem 7: 06/29/21 06:41 06/29/21 06:41 Labs: Abnormal Lab Results - Last 24 Hours (Table) 06/28/21 06/29/21 06/29/21 Range/Units 07:18 06:41 06:41 WBC 2.8 L (3.8-10.6) k/uL RBC 3.80 L (4.30-5.90) m/uL Hgb 8.3 L (13.0-17.5) gm/dL Hct 28.2 L (39.0-53.0) % MCV 74.3 L (80.0-100.0) fL MCH 21.9 L (25.0-35.0) pg MCHC 29.5 L (31.0-37.0) g/dL RDW 21.3 H (11.5-15.5) % Sodium 136 L (137-145) mmol/L Potassium 3.4 L (3.5-5.1) mmol/L Glucose 101 H (74-99) mg/dL Iron 33 L (65-175) ug/dL % Saturation 9.12 L (15.00-50.00) Total Protein 6.0 L (6.3-8.2) g/dL Albumin 3.2 L (3.5-5.0) g/dL Assessment and Plan (1) GI bleed Narrative/Plan: Assessment 56-year-old with significant history of alcohol abuse who presented with abdominal pain nausea and vomiting associated with alcohol intoxication and withdrawal. He has a previous history of pancreatitis and was admitted earlier this year in September and also underwent an EGD at that time with findings of a diminutive nonbleeding duodenal ulcer without high risk stigmata for bleeding, moderate duodenitis, mild gastritis and only grade C esophagitis. The patient was complaining of dark loose stool yesterday evening and also reported some coffee-ground emesis prior to coming into the emergency department. He has initial hemoglobin on presentation was 10.4 with a drop to 8.3 today. He had iron studies that were consistent with an iron deficiency anemia. Likely related to acute blood loss. Will proceed with EGD this afternoon, possible etiologies include peptic ulcer disease, esophageal varices, AVM, gastritis, esophagitis, or other possible etiologies including Sh[place]-L[place] tear. Current Visit: No Status: Acute Code(s): K92.2 - GASTROINTESTINAL HEMORRHAGE, UNSPECIFIED SNOMED Code(s): 04536256 (2) Alcohol withdrawal Current Visit: Yes Status: Acute Code(s): F10.239 - ALCOHOL DEPENDENCE WITH WITHDRAWAL, UNSPECIFIED SNOMED Code(s): 602886225 (3) Alcoholic intoxication Current Visit: No Status: Acute Code(s): F10.929 - ALCOHOL USE, UNSPECIFIED WITH INTOXICATION, UNSPECIFIED SNOMED Code(s): 53639712 Plan: 1. Nothing by mouth 2. Protonic 40 mg twice a day 3. Antiemetics as needed 4. Alcohol abstinence 5. Withdrawal precautions 6. Will proceed with EGD today, procedure discussed with patient including risks and benefits. Patient willing to proceed. Thank you for allowing us to participate in the care of the patient, the GI service will sign off, gastroenterology will not be available at the hospital this weekend. If further evaluation by gastroenterology is required the patient will need transfer as per the primary team's discretion. Dr. Shari Hayes I agree with the dictator's note, documented as a scribe by Carol Schultz.
[2021-06-29] MEDS ORDERED: LIDOCAINE 1% INJ 10MG/ML (20 ML MDV) ONE (15:15)
[2021-06-29] MEDS ORDERED: PROPOFOL 10 MG/ML 20 ML VIAL IV ONE (15:15)
--- NOTE | 2021-06-29 15:33 | P.PCN ---
Date of Procedure: 06/29/21 Procedure(s) Performed: BRIEF HISTORY: Patient is a 56-year-old, pleasant, white male admitted hospital with black tarry stools of 2 days' duration. Has history of heavy alcohol abuse. He scheduled for an upper endoscopy to evaluate further. PROCEDURE PERFORMED: Esophagogastroduodenoscopy. PREOPERATIVE DIAGNOSIS: Acute upper GI bleed. IV sedation per anesthesia. PROCEDURE: After informed consent was obtained, the patient was brought into the endoscopy unit. IV sedation was administered by Anesthesia under continuous monitoring. Initially the Olympus GIF-140 video endoscope was inserted into the mouth. Esophagus intubated without any difficulty. It was gradually advanced into the stomach and duodenum and carefully examined. The bulb and the second part of the duodenum appeared normal. The scope at this time was withdrawn to the stomach, adequately insufflated with air, and upon careful examination, mucosa of the antrum, body, cardia and the fundus appeared normal. The scope was then withdrawn into the esophagus. Moderate size hiatal hernia noted. The GE junction was located at 39 cm from the incisors. There were linear erosions with exudates noted in the distal esophagus consistent with LA grade C reflux esophagitis. The esophagus appeared normal and the patient tolerated the procedure well. IMPRESSION: 1. Linear erosions in the distal esophagus with exudates consistent with LA grade C reflux esophagitis 2 Small hiatal hernia]. RECOMMENDATIONS: The findings of this examination were discussed with the patientas well as his family. He was advised to continue Protonix 40 mg twice daily and follow antireflux measures and remain abstinent from alcohol].
[2021-06-29] MEDS ORDERED: SODIUM CHLORIDE 0.9% 500 ML 500 ML IV ONE (15:34)
--- NOTE | 2021-06-29 17:12 | P.PN ---
Subjective Patient was seen and evaluated by me this morning. He appeared anxious. He had an episode of black tarry stool last night for which GI were consulted and an EGD scheduled for this afternoon. Objective - Vital Signs Vital signs: Vital Signs Temp 98.0 F 06/29/21 08:00 Pulse 98 06/29/21 16:00 Resp 17 06/29/21 16:00 BP 149/90 06/29/21 16:00 Pulse Ox 97 06/29/21 16:00 Intake & Output 06/28/21 06/29/21 06/29/21 18:59 06:59 18:59 Intake Total 1040 75 250 Output Total 600 210 Balance 440 -135 250 Weight 82 kg Intake: IV 250 Intake, IV Titration 75 Amount Dextrose 5%-0.45% NaCl 1, 75 000 ml @ 75 mls/hr IV . [id number] [facility] Rx#:[id number] Oral 1040 Output: Urine 600 210 Other: # Voids 1 - Exam General: The patient is awake and alert, in no distress Eye: there is normal conjunctiva bilaterally. Neck: The neck is supple, there is no JVD. Cardiovascular: Normal S1-S2, no S3-S4, no murmurs. Respiratory: Lungs clear to auscultation bilaterally Gastrointestinal: Abdomen is soft, nontender Musculoskeletal: There is no pedal edema. Neurological:. Speech is normal. Skin: Skin is warm and dry - Labs CBC & Chem 7: 06/29/21 06:41 06/29/21 06:41 Labs: Abnormal Lab Results - Last 24 Hours (Table) 06/29/21 06/29/21 06/29/21 Range/Units 06:41 06:41 06:41 WBC 2.8 L (3.8-10.6) k/uL RBC 3.80 L (4.30-5.90) m/uL Hgb 8.3 L (13.0-17.5) gm/dL Hct 28.2 L (39.0-53.0) % MCV 74.3 L (80.0-100.0) fL MCH 21.9 L (25.0-35.0) pg MCHC 29.5 L (31.0-37.0) g/dL RDW 21.3 H (11.5-15.5) % Lymphocytes # (Manual) 0.76 L (1.0-4.8) k/uL Sodium 136 L (137-145) mmol/L Potassium 3.4 L (3.5-5.1) mmol/L Glucose 101 H (74-99) mg/dL C-Reactive Protein 2.5 H (<1.0) mg/dL Total Protein 6.0 L (6.3-8.2) g/dL Albumin 3.2 L (3.5-5.0) g/dL Assessment and Plan Assessment: Alcohol abuse with impending withdrawal -[facility] protocol -Thiamine -IV fluids -Fall, aspiration precautions -Protonix Nausea and vomiting, resolved -Suspected alcoholic gastritis -Conservative management Suspected upper GI bleed with episode of black stool -Status post EGD showing linear erosions in the distal esophagus. Evidence of reflux esophagitis. Other significant findings. -Started on Protonix twice daily Acute on chronic blood loss anemia with iron deficiency anemia -Started on iron supplement -Patient needs colonoscopy outpatient Lactic acidosis -Resolved with IV fluids Acute kidney injury -Due to above DVT prophylaxis -Heparin subq CODE STATUS: Full Code
[2021-06-29] MEDS: DEXTROSE 5%-0.45% NACL 1,000 ML IV SCH ×2 (20:04→23:35)
[2021-06-30 05:10] VITALS: TEMP 97.9
[2021-06-30] MEDS: FERROUS SULFATE 325 MG TAB PO SCH (05:40)
[2021-06-30] MEDS: PANTOPRAZOLE 40 MG TABLET PO SCH (05:40)
[2021-06-30] MEDS: THIAMINE 100 MG TAB PO SCH (05:40)
[2021-06-30] MEDS: diazePAM 5 MG TAB PO SCH (08:53)
[2021-06-30 08:57] VITALS: BP 140/95; PULSE 86; RESP 18
[2021-06-30] MEDS ORDERED: METOPROLOL SUCCINATE (ER) 50 MG TAB.ER.24H PO SCH (09:30)
[2021-06-30 10:22] LABS: African American GFR (CKD) >90 (>60 ml/min/1.73 sqM); Anion Gap 7 mmol/L; Blood Urea Nitrogen 7 mg/dL (9-20); Calcium 9.1 mg/dL (8.4-10.2); Carbon Dioxide 26 mmol/L (22-30); Chloride 104 mmol/L (98-107); Glucose 99 mg/dL (74-99); Non-African American GFR(CKD) >90 (>60 ml/min/1.73 sqM); Potassium 3.5 mmol/L (3.5-5.1); Sodium 137 mmol/L (137-145)
[2021-06-30 10:32] LABS: Anisocytosis Moderate; HCT 30.3 % (39.0-53.0); Hypochromasia Marked; MCH 22.1 pg (25.0-35.0); MCHC 29.7 g/dL (31.0-37.0); MCV 74.4 fL (80.0-100.0); Mean Platelet Volume 7.1; Microcytosis Marked; Platelet Count 215 k/uL (150-450); RBC 4.07 m/uL (4.30-5.90); RDW 20.9 % (11.5-15.5); WBC 2.8 k/uL (3.8-10.6)
--- NOTE | 2021-06-30 10:42 | P.DS ---
Providers Date of admission: 06/27/21 19:24 Expected date of discharge: 06/30/21 Attending physician: Ramez Fish MD Consults: 06/28/21 22:48 Consult Physician Routine Consulting Provider: Sabina Hayes Consult Reason/Comments: black tarry stool, hgb drop Do you want consulting provider notified?: Yes, Notify in am Primary care physician: Nabila Tillman MD Hospital Course: This is a 56-year-old male with past medical history significant for alcohol abuse that presented to the emergency room with alcohol withdrawal. Patient was admitted to the hospital and was treated with aggressive IV fluid hydration, IV Ativan as needed per protocol, and vitamins. During his hospital stay, patient had an episode of black stool and he was seen and evaluated by GI. EGD showing linear erosions in the distal esophagus. Evidence of reflux esophagitis. Other significant findings. Patient was also found to have acute on chronic blood loss anemia with iron deficiency. Patient was started on Protonix 40 mg twice daily for 1 week and once a day afterward. He was also started on ferrous sulfate twice daily. Patient's overall condition improved significantly throughout his hospital stay. Below is a list of his medical problems at this time this hospitalization. Alcohol abuse with impending withdrawal Nausea and vomiting, resolved Suspected upper GI bleed with episode of black stool Acute on chronic blood loss anemia with iron deficiency anemia Lactic acidosis Acute kidney injury Patient was seen and evaluated by me on day of discharge. Physical exam: General: The patient is awake and alert, in no distress Eye: there is normal conjunctiva bilaterally. Neck: The neck is supple, there is no JVD. Cardiovascular: Normal S1-S2, no S3-S4, no murmurs. Respiratory: Lungs clear to auscultation bilaterally Gastrointestinal: Abdomen is soft, nontender Musculoskeletal: There is no pedal edema. Neurological:. Speech is normal. Skin: Skin is warm and dry Patient Condition at Discharge: Stable Plan - Discharge Summary Discharge Rx Participant: No New Discharge Prescriptions: New Ferrous Sulfate [Iron (65 MG Elemental)] 325 mg PO BID-W/MEALS #60 tab Pantoprazole Sodium [Protonix] 40 mg PO DAILY #30 tab Continue Metoprolol Succinate (ER) [Toprol XL] 50 mg PO DAILY lisinopriL [Zestril] 2.5 mg PO DAILY Discharge Medication List Metoprolol Succinate (ER) [Toprol XL] 50 mg PO DAILY 06/27/21 [History] lisinopriL [Zestril] 2.5 mg PO DAILY 06/27/21 [History] Ferrous Sulfate [Iron (65 MG Elemental)] 325 mg PO BID-W/MEALS #60 tab 06/30/21 [Rx] Pantoprazole Sodium [Protonix] 40 mg PO DAILY #30 tab 06/30/21 [Rx] Follow up Appointment(s)/Referral(s): Nabila Tillman MD [Primary Care Provider] - 1-2 days Discharge Disposition: HOME SELF-CARE
[2021-06-30 14:05] LABS: Eosinophils # (M) 0.06 k/uL (0-0.7); Monocytes # (M) 0.45 k/uL (0-1.0); Neutrophils % (M) 57 %; Nucleated Red Blood Cells 0 /100 WBC (0-0); Total Cells Counted 100
[2021-06-30 14:06] LABS: Poikilocytosis (M) Present; Polychromasia Present
== END 2021-06-30 13:15 | disposition home or self-care (01) | DRG 381 ==
LOC: EC 15:46 → 5NMEDONC 19:24 → 3SCARD 20:09 → 4SSUR 22:05 → 3SCARD 22:11
PROVIDERS: ADMIT Internal Medicine; ATTEND Internal Medicine
PROC: 0DJ08ZZ Inspection of Upper Intestinal Tract, Via Natural or Artificial Opening Endoscopic (ICD-10-PCS; principal; 2021-06-29 08:55)
DX: K22.11 Ulcer of esophagus with bleeding (principal); D62 Acute posthemorrhagic anemia; E87.2 Acidosis; F10.139 Alcohol abuse with withdrawal, unspecified; N17.9 Acute kidney failure, unspecified; K21.01 Gastro-esophageal reflux disease with esophagitis, with bleeding; K44.9 Diaphragmatic hernia without obstruction or gangrene; E86.0 Dehydration; F14.11 Cocaine abuse, in remission; F12.11 Cannabis abuse, in remission; A08.4 Viral intestinal infection, unspecified; Y90.0 Blood alcohol level of less than 20 mg/100 ml; F41.9 Anxiety disorder, unspecified; G40.909 Epilepsy, unspecified, not intractable, without status epilepticus; I10 Essential (primary) hypertension; Z87.11 Personal history of peptic ulcer disease; K59.00 Constipation, unspecified; Z79.899 Other long term (current) drug therapy; Z77.22 Contact with and (suspected) exposure to environmental tobacco smoke (acute) (chronic); Z20.822 Contact with and (suspected) exposure to COVID-19; Z96.60 Presence of unspecified orthopedic joint implant
CPT/HCPCS: 36415; 43235; 80048; 80053; 80320; 81003; 82150; 82728; 83540; 83550; 83605; 83690; 83735; 85025; 85027; 85610; 85652; 86140; 87635; 96361; 96374; 96375; 96376; 99285

== ENCOUNTER 2022-02-13 23:33 | Inpatient (IN) | payer OTHER ==
[2022-02-14] MEDS ORDERED: SODIUM CHLORIDE 0.9% 1,000 ML IV ONE ×2 (01:50→03:14)
--- NOTE | 2022-02-14 02:00 | XR ---
EXAMINATION TYPE: XR chest 2V DATE OF EXAM: 02/14/2022 COMPARISON: 12/26/2020 HISTORY: Vomiting TECHNIQUE: 2 views FINDINGS: Heart and mediastinum are normal. Lungs are clear. Diaphragm is normal. Bony thorax appears normal. The pulmonary vascularity is normal. IMPRESSION: Normal chest. No change.
[2022-02-14] MEDS ORDERED: ONDANSETRON 4 MG/2 ML VIAL IVP STA (02:03)
[2022-02-14] MEDS ORDERED: LORazepam 2 MG/ML INJ IV STA (02:03)
--- NOTE | 2022-02-14 02:07 | ED ---
General Adult HPI - General Chief complaint: Alcohol Stated complaint: Alcohol withdrawals Time Seen by Provider: 02/14/22 01:48 Source: patient Mode of arrival: wheelchair - History of Present Illness Initial comments: This patient is a 56-year-old man who presents with complaint that he is not able to tolerate any thing that he eats or drinks. Patient has been having nausea and vomiting. I states that he also has some upper abdominal pain, burning and cramping in nature. Patient has noticed some coffee-ground type emesis. No ricky blood. He does admit to drinking approximately a pint of alcohol and a few beers per day. Patient has not been able to drink past few d ays. No fevers. No chest pain or dyspnea. -: days(s) Location: abdomen Quality: burning, aching Consistency: constant Improves with: none Worsens with: none Associated Symptoms: nausea/vomiting Treatments Prior to Arrival: none - Related Data Home Medications Medication Instructions Recorded Confirmed Metoprolol Succinate (ER) [Toprol 50 mg PO DAILY 06/27/21 06/27/21 XL] lisinopriL [Zestril] 2.5 mg PO DAILY 06/27/21 06/27/21 Previous Rx's Medication Instructions Recorded Ferrous Sulfate [Iron (65 MG 325 mg PO BID-W/MEALS #60 tab 06/30/21 Elemental)] Pantoprazole Sodium [Protonix] 40 mg PO DAILY #30 tab 06/30/21 Allergies Allergy/AdvReac Type Severity Reaction Status Date / Time No Known Allergies Allergy Verified 02/14/22 01:44 Review of Systems ROS Statement: Those systems with pertinent positive or pertinent negative responses have been documented in the HPI. ROS Other: All systems not noted in ROS Statement are negative. Constitutional: Denies: fever, chills Respiratory: Denies: cough, dyspnea Cardiovascular: Reports: palpitations. Denies: chest pain, edema Gastrointestinal: Reports: abdominal pain, nausea, vomiting, hematemesis. Denies: diarrhea, constipation, melena, hematochezia Genitourinary: Denies: dysuria, hematuria, testicular pain Musculoskeletal: Denies: back pain Skin: Denies: rash Neurological: Denies: headache, weakness Psychiatric: Reports: anxiety Past Medical History Past Medical History: Seizure Disorder Additional Past Medical History / Comment(s): pancreatitis History of Any Multi-Drug Resistant Organisms: None Reported Past Surgical History: Joint Replacement, Orthopedic Surgery Past Anesthesia/Blood Transfusion Reactions: No Reported Reaction Past Psychological History: No Psychological Hx Reported Smoking Status: Never smoker, Second hand smoke exposure Past Alcohol Use History: Abuse, Heavy Past Drug Use History: Cocaine, Marijuana - Past Family History Mother Family Medical History: COPD General Exam General appearance: alert, in no apparent distress, anxious Head exam: Present: atraumatic, normocephalic Eye exam: Present: normal appearance. Absent: scleral icterus, conjunctival injection ENT exam: Present: mucous membranes dry Neck exam: Present: normal inspection Respiratory exam: Present: normal lung sounds bilaterally. Absent: respiratory distress, wheezes, rales, rhonchi, stridor Cardiovascular Exam: Present: normal rhythm, tachycardia, normal heart sounds. Absent: systolic murmur, diastolic murmur, rubs, gallop GI/Abdominal exam: Present: soft, tenderness (Mild epigastric tenderness no rebo und or guarding). Absent: distended, guarding, rebound, rigid, organomegaly, mass, pulsatile mass, hernia Extremities exam: Present: normal inspection, normal capillary refill. Absent: pedal edema, calf tenderness Back exam: Present: normal inspection. Absent: CVA tenderness (R), CVA tenderness (L) Neurological exam: Present: alert Skin exam: Present: warm, dry, intact, normal color. Absent: rash Course Vital Signs 02/14/22 02/14/22 02/14/22 01:42 03:13 04:27 Temperature 98.4 F Pulse Rate 150 H 138 H 120 H Respiratory 18 18 Rate Blood Pressure 121/98 135/101 O2 Sat by Pulse 97 98 Oximetry 02/14/22 05:56 Temperature Pulse Rate 100 Respiratory 18 Rate Blood Pressure 134/77 O2 Sat by Pulse 99 Oximetry EKG Findings - EKG Results: EKG: interpreted by ERMD, sinus rhythm, normal axis, normal QRS, normal ST/T EKG shows: tachycardia (Rate 150 bpm) Medical Decision Making - Lab Data Result diagrams: 02/14/22 02:15 02/14/22 02:15 Lab Results 02/14/22 02/14/22 02/14/22 Range/Units 02:10 02:15 02:15 WBC 9.8 (3.8-10.6) k/uL RBC 5.58 (4.30-5.90) m/uL Hgb 14.3 (13.0-17.5) gm/dL Hct 48.5 (39.0-53.0) % MCV 86.8 (80.0-100.0) fL MCH 25.7 (25.0-35.0) pg MCHC 29.5 L (31.0-37.0) g/dL RDW 19.0 H (11.5-15.5) % Plt Count 169 (150-450) k/uL MPV 7.0 Neutrophils % (Manual) 75 % Band Neuts % (Manual) 8 % Lymphocytes % (Manual) 4 % Monocytes % (Manual) 13 % Myelocytes % Not Reportable Neutrophils # (Manual) 8.10 H (1.3-7.7) k/uL Lymphocytes # (Manual) 0.39 L (1.0-4.8) k/uL Monocytes # (Manual) 1.27 H (0-1.0) k/uL Myelocytes # (Manual) 0.10 H (0) k/uL Nucleated RBCs 0 (0-0) /100 WBC Manual Slide Review Performed Hypochromasia Marked Anisocytosis Slight Sodium 144 (137-145) mmol/L Potassium 4.5 (3.5-5.1) mmol/L Chloride 95 L (98-107) mmol/L Carbon Dioxide 8 L* (22-30) mmol/L Anion Gap 41 mmol/L BUN 15 (9-20) mg/dL Creatinine 2.63 H (0.66-1.25) mg/dL Est GFR (CKD-EPI)AfAm 30 (>60 ml/min/1.73 sqM) Est GFR (CKD-EPI)NonAf 26 (>60 ml/min/1.73 sqM) Glucose 119 H (74-99) mg/dL Lactic Ac Sepsis Rflx Plasma Lactic Acid Nawaf (0.7-2.0) mmol/L Calcium 9.8 (8.4-10.2) mg/dL Magnesium 1.9 (1.6-2.3) mg/dL Total Bilirubin 1.2 (0.2-1.3) mg/dL AST 128 H (17-59) U/L ALT 117 H (4-49) U/L Alkaline Phosphatase 94 (38-126) U/L Troponin I (0.000-0.034) ng/mL Total Protein 10.4 H (6.3-8.2) g/dL Albumin 5.8 H (3.5-5.0) g/dL Amylase 296 H (30-110) U/L Lipase 794 H (23-300) U/L Serum Alcohol 22 mg/dL Blood Type Blood Type Confirm O Positive Blood Type Recheck Bld Type Recheck Status Antibody Screen Spec Expiration Date 02/14/22 02/14/22 02/14/22 Range/Units 02:15 02:15 02:15 WBC (3.8-10.6) k/uL RBC (4.30-5.90) m/uL Hgb (13.0-17.5) gm/dL Hct (39.0-53.0) % MCV (80.0-100.0) fL MCH (25.0-35.0) pg MCHC (31.0-37.0) g/dL RDW (11.5-15.5) % Plt Count (150-450) k/uL MPV Neutrophils % (Manual) % Band Neuts % (Manual) % Lymphocytes % (Manual) % Monocytes % (Manual) % Myelocytes % Neutrophils # (Manual) (1.3-7.7) k/uL Lymphocytes # (Manual) (1.0-4.8) k/uL Monocytes # (Manual) (0-1.0) k/uL Myelocytes # (Manual) (0) k/uL Nucleated RBCs (0-0) /100 WBC Manual Slide Review Hypochromasia Anisocytosis Sodium (137-145) mmol/L Potassium (3.5-5.1) mmol/L Chloride (98-107) mmol/L Carbon Dioxide (22-30) mmol/L Anion Gap mmol/L BUN (9-20) mg/dL Creatinine (0.66-1.25) mg/dL Est GFR (CKD-EPI)AfAm (>60 ml/min/1.73 sqM) Est GFR (CKD-EPI)NonAf (>60 ml/min/1.73 sqM) Glucose (74-99) mg/dL Lactic Ac Sepsis Rflx Plasma Lactic Acid Nawaf 8.8 H* (0.7-2.0) mmol/L Calcium (8.4-10.2) mg/dL Magnesium (1.6-2.3) mg/dL Total Bilirubin (0.2-1.3) mg/dL AST (17-59) U/L ALT (4-49) U/L Alkaline Phosphatase (38-126) U/L Troponin I 0.028 (0.000-0.034) ng/mL Total Protein (6.3-8.2) g/dL Albumin (3.5-5.0) g/dL Amylase (30-110) U/L Lipase (23-300) U/L Serum Alcohol mg/dL Blood Type O Positive Blood Type Confirm Blood Type Recheck No Previous Record Bld Type Recheck Status CABO Indicated Antibody Screen NEGATIVE Spec Expiration Date 02/17/2022 - 231402/14/22 Range/Units 03:10 WBC (3.8-10.6) k/uL RBC (4.30-5.90) m/uL Hgb (13.0-17.5) gm/dL Hct (39.0-53.0) % MCV (80.0-100.0) fL MCH (25.0-35.0) pg MCHC (31.0-37.0) g/dL RDW (11.5-15.5) % Plt Count (150-450) k/uL MPV Neutrophils % (Manual) % Band Neuts % (Manual) % Lymphocytes % (Manual) % Monocytes % (Manual) % Myelocytes % Neutrophils # (Manual) (1.3-7.7) k/uL Lymphocytes # (Manual) (1.0-4.8) k/uL Monocytes # (Manual) (0-1.0) k/uL Myelocytes # (Manual) (0) k/uL Nucleated RBCs (0-0) /100 WBC Manual Slide Review Hypochromasia Anisocytosis Sodium (137-145) mmol/L Potassium (3.5-5.1) mmol/L Chloride (98-107) mmol/L Carbon Dioxide (22-30) mmol/L Anion Gap mmol/L BUN (9-20) mg/dL Creatinine (0.66-1.25) mg/dL Est GFR (CKD-EPI)AfAm (>60 ml/min/1.73 sqM) Est GFR (CKD-EPI)NonAf (>60 ml/min/1.73 sqM) Glucose (74-99) mg/dL Lactic Ac Sepsis Rflx Y Plasma Lactic Acid Nawaf (0.7-2.0) mmol/L Calcium (8.4-10.2) mg/dL Magnesium (1.6-2.3) mg/dL Total Bilirubin (0.2-1.3) mg/dL AST (17-59) U/L ALT (4-49) U/L Alkaline Phosphatase (38-126) U/L Troponin I (0.000-0.034) ng/mL Total Protein (6.3-8.2) g/dL Albumin (3.5-5.0) g/dL Amylase (30-110) U/L Lipase (23-300) U/L Serum Alcohol mg/dL Blood Type Blood Type Confirm Blood Type Recheck Bld Type Recheck Status Antibody Screen Spec Expiration Date Disposition Clinical Impression: Acute pancreatitis, Dehydration, Alcoholic ketoacidosis, Alcohol withdrawal Disposition: ADMITTED IP TO THIS [facility] Condition: Serious Is patient prescribed a controlled substance at d/c from ED?: No Referrals: Nabila Tillman MD [Primary Care Provider] - 1-2 days
[2022-02-14] MEDS: SODIUM CHLORIDE 0.9% 1,000 ML IV STA ×2 (02:14→07:36)
[2022-02-14 02:59] LABS: Anisocytosis Slight; HCT 48.5 % (39.0-53.0); HGB 14.3 gm/dL (13.0-17.5); Hypochromasia Marked; MCH 25.7 pg (25.0-35.0); MCHC 29.5 g/dL (31.0-37.0); MCV 86.8 fL (80.0-100.0); Platelet Count 169 k/uL (150-450); RBC 5.58 m/uL (4.30-5.90); WBC 9.8 k/uL (3.8-10.6)
[2022-02-14 03:05] LABS: Potassium 4.5 mmol/L (3.5-5.1)
[2022-02-14 03:06] LABS: Albumin 5.8 g/dL (3.5-5.0); Calcium 9.8 mg/dL (8.4-10.2); Magnesium 1.9 mg/dL (1.6-2.3); Total Bilirubin 1.2 mg/dL (0.2-1.3); Total Protein 10.4 g/dL (6.3-8.2)
[2022-02-14] MEDS ORDERED: LORazepam 2 MG/ML INJ IV PRN ×2 (03:11)
[2022-02-14 03:19] LABS: Lymphocytes # (M) 0.39 k/uL (1.0-4.8); Monocytes # (M) 1.27 k/uL (0-1.0); Neutrophils % (M) 75 %; Nucleated Red Blood Cells 0 /100 WBC (0-0); Total Cells Counted 100
[2022-02-14 03:20] LABS: Band Neutrophils % 8 %
[2022-02-14] MEDS ORDERED: MAG HYDROX/AL HYDROX/SIMETH 30 ML, HYOSCYAMINE ELIXIR 10 ML, LIDOCAINE VISCOUS 2% 10 ML PO STA ×3 (03:39)
[2022-02-14] MEDS ORDERED: THIAMINE 100 MG/ML 2 ML VIAL IM STA (05:29)
--- NOTE | 2022-02-14 05:31 | P.HPIM ---
History of Present Illness H&P Date: 02/14/22 Patient is a 21-year-old male with a PMH of EtOH abuse and hypertension who presented to the emergency room with complaints of alcohol withdrawal. The patient notes that he quit drinking his usual 1 pint of vodka daily of several years roughly 4 days ago. He reports gradual onset of tremors along with nausea and numerous episodes of vomiting. Reports that the vomitus was initially nonbloody but then became coffee ground earlier today. Also reports diffuse abdominal discomfort, 3 out of 10 at the time of interview, which he attributes to his nausea and vomiting. Denies seizures. Denies diarrhea. Also denies fever, chills, cough, chest pain, shortness of breath. In the emergency room, l aboratory evaluation was remarkable for lactic acid 8.8, CO2 8, AST 128, ALT 117, lipase 794, creatinine 2.63, and serum alcohol level 22. Review of systems: Pertinent positives and negatives as discussed in HPI, a complete review of systems was performed and all other systems are negative. Physical examination: General: Tremulous male, no distress, appears at stated age, obese Derm: no unusual rashes/lesions no unusual ecchymoses, warm, dry Head: atraumatic, normocephalic, symmetric Eyes: EOMI, no lid lag, anicteric sclera, pupils equal round reactive to light ENT: Nose and ears atraumatic, no thrush, no pharyngeal erythema Neck: No thyromegaly, no cervical lymphadenopathy, trachea midline, supple Mouth: no lip lesion, mucus membranes dry, tongue fasciculations noted Cardiovascular: S1S2 reg, no murmur, positive posterior tibial pulse bilateral, no edema, capillary refill less than 2 seconds Lungs: CTA bilateral, no rhonchi, no rales , no accessory muscle use Abdominal: soft, nontender to palpation, no guarding, no appreciable organomegaly, normal bowel sounds Ext: no gross muscle atrophy, muscle strength 5 out of 5 in all 4 extremities grossly, no contractures, Neuro: CN II-XI grossly intact, light touch intact all 4 extremities, tremulous Psych: Alert, oriented, appropriate affect Assessment/plan Alcohol withdrawal in active alcoholic -CIWA protocol -Thiamine, multivitamin -IV fluids -Fall, seizure, aspiration precautions Lactic acidosis, causing high anion gap metabolic acidosis -IV fluids and monitor for resolution Alcoholic acute pancreatitis -IV fluids, pain control, nothing by mouth DVT prophylaxis -Heparin subq The patient is admitted with an anticipated greater than 2 midnight stay for evaluation of EtOH withdrawal CODE STATUS: Full Code Discussed with: Patient Anticipated discharge date: 2-[address]: Home Past Medical History Past Medical History: Seizure Disorder Additional Past Medical History / Comment(s): pancreatitis History of Any Multi-Drug Resistant Organisms: None Reported Past Surgical History: Joint Replacement, Orthopedic Surgery Past Anesthesia/Blood Transfusion Reactions: No Reported Reaction Past Psychological History: No Psychological Hx Reported Smoking Status: Never smoker, Second hand smoke exposure Past Alcohol Use History: Abuse, Heavy Past Drug Use History: Cocaine, Marijuana - Past Family History Mother Family Medical History: COPD Medications and Allergies Home Medications Medication Instructions Recorded Confirmed Type Metoprolol Succinate (ER) [Toprol 50 mg PO DAILY 06/27/21 06/27/21 History XL] lisinopriL [Zestril] 2.5 mg PO DAILY 06/27/21 06/27/21 History Ferrous Sulfate [Iron (65 MG 325 mg PO BID-W/MEALS #60 tab 06/30/21 Rx Elemental)] Pantoprazole Sodium [Protonix] 40 mg PO DAILY #30 tab 06/30/21 Rx Allergies Allergy/AdvReac Type Severity Reaction Status Date / Time No Known Allergies Allergy Verified 02/14/22 01:44 Physical Exam Vitals: Vital Signs Temp Pulse Resp BP Pulse Ox 02/14/22 04:27 120 H 02/14/22 03:13 138 H 18 135/101 98 02/14/22 01:42 98.4 F 150 H 18 121/98 97 Intake and Output 02/13/22 02/13/22 02/14/22 14:59 22:59 06:59 Other: Weight 90.718 kg Results CBC & Chem 7: 02/14/22 02:15 02/14/22 02:15 Labs: Abnormal Lab Results - Last 24 Hours (Table) 02/14/22 02/14/22 02/14/22 Range/Units 02:15 02:15 02:15 MCHC 29.5 L (31.0-37.0) g/dL RDW 19.0 H (11.5-15.5) % Neutrophils # (Manual) 8.10 H (1.3-7.7) k/uL Lymphocytes # (Manual) 0.39 L (1.0-4.8) k/uL Monocytes # (Manual) 1.27 H (0-1.0) k/uL Myelocytes # (Manual) 0.10 H (0) k/uL Chloride 95 L (98-107) mmol/L Carbon Dioxide 8 L* (22-30) mmol/L Creatinine 2.63 H (0.66-1.25) mg/dL Glucose 119 H (74-99) mg/dL Plasma Lactic Acid Nawaf 8.8 H* (0.7-2.0) mmol/L AST 128 H (17-59) U/L ALT 117 H (4-49) U/L Total Protein 10.4 H (6.3-8.2) g/dL Albumin 5.8 H (3.5-5.0) g/dL Amylase 296 H (30-110) U/L Lipase 794 H (23-300) U/L
[2022-02-14] MEDS: HEPARIN SODIUM,PORCINE/PF 5,000 UNIT/0.5 ML SYRINGE SQ SCH ×2 (07:35→17:04)
[2022-02-14] MEDS ORDERED: HEPARIN SODIUM,PORCINE/PF 5,000 UNIT/0.5 ML SYRINGE SQ SCH (08:00)
[2022-02-14 08:24] LABS: VBG PH 7.4 (7.31-7.41)
[2022-02-14 08:27] LABS: Anisocytosis Slight; HCT 31.8 % (39.0-53.0); Hypochromasia Marked; MCH 26.2 pg (25.0-35.0); MCHC 30.5 g/dL (31.0-37.0); MCV 86.1 fL (80.0-100.0); Mean Platelet Volume 6.8; RBC 3.69 m/uL (4.30-5.90); RDW 19.2 % (11.5-15.5); WBC 4.8 k/uL (3.8-10.6)
[2022-02-14 08:48] LABS: Calcium 7.3 mg/dL (8.4-10.2); HGB 9.7 gm/dL (13.0-17.5); Magnesium 1.7 mg/dL (1.6-2.3); Potassium 4.3 mmol/L (3.5-5.1)
[2022-02-14] MEDS: FOLIC ACID 1 MG TAB PO SCH (09:12)
[2022-02-14] MEDS ORDERED: bisacodyL 5 MG TABLET.DR PO PRN (09:32)
[2022-02-14] MEDS ORDERED: CALCIUM CARBONATE 500 MG CHEWABLE PO PRN (09:32)
[2022-02-14] MEDS ORDERED: MELATONIN 5 MG TABLET PO PRN (09:32)
[2022-02-14] MEDS ORDERED: ACETAMINOPHEN TAB 325 MG TAB PO PRN (09:32)
[2022-02-14] MEDS ORDERED: ONDANSETRON 4 MG/2 ML VIAL IVP PRN (09:32)
--- NOTE | 2022-02-14 10:11 | CT ---
EXAMINATION TYPE: CT abdomen pelvis wo con DATE OF EXAM: 02/14/2022 COMPARISON: CT dated 10/06/2020 HISTORY: vomiting, unable to tolerate orals X [address] DLP: 539.3 mGycm Automated exposure control for dose reduction was used. TECHNIQUE: Helical acquisition of images was performed from the lung bases through the pelvis. FINDINGS: LUNG BASES: Stable bilateral basal pulmonary nodules measuring up to 5 mm. Reduced blood density with in the heart, which can be seen in cases of anemia, please correlate clinically and with hemoglobin l evel/CBC. LIVER/GB: Markedly hypodense hepatic parenchyma which can be seen in cases of hepatic steatosis. No r adiodense gallbladder calculi or signs of acute cholecystitis. PANCREAS: No significant abnormality is seen. SPLEEN: No significant abnormality is seen. ADRENALS: No significant abnormality is seen. KIDNEYS: Small/atrophic right kidney with 2 mm calculus within. Suspected 1 mm gravel within the left kidney. Unremarkable left kidney otherwise. FREE AIR: No free air is visualized RETROPERITONEAL ADENOPATHY: None visualized REPRODUCTIVE ORGANS: No significant abnormality is seen URINARY BLADDER: No significant abnormality is seen. PELVIC ADENOPATHY: No pathologically enlarged pelvic lymph nodes. 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 Severe degenerative changes at L4-5 level. No aggressive bone lesion. BOWEL: Diffusely thickened inferior aspect of the esophagus, esophagitis cannot be excluded, please correlate clinically. Unremarkable nondistended stomach, duodenum and small bowel. Scattered uncompli cated colonic diverticulosis. Normal appendix. OTHER: No sizable ascites. Nonspecific superior retroperitoneal fat stranding seen inseparable from t he third of the duodenum as well as the anterior aspect of the abdominal aorta and IVC, nonspecific. IMPRESSION: Diffusely thickened inferior aspect of the esophagus, esophagitis can't be excluded, please correlate clinically. Subtle superior retroperitoneal fat stranding inseparable from the third part of the duodenum and ant erior aspect of aorta and IVC as described above, nonspecific. Underlying acute inflammatory process at that location can't be excluded. Other findings and recommendations as detailed above.
[2022-02-14] MEDS: THIAMINE 100 MG/ML 2 ML VIAL IVP SCH ×2 (10:45→22:05)
[2022-02-14] MEDS: LACTATED RINGERS 1,000 ML IV SCH ×2 (10:47→17:06)
[2022-02-14] MEDS: PANTOPRAZOLE 40 MG/10 ML VIAL IVP SCH ×2 (17:04→22:05)
[2022-02-14] MEDS: PIPERACILLIN-TAZOBACTAM 3.375 GM in SODIUM CHLORIDE 0.9% 100 ML IVPB SCH (17:05)
[2022-02-14] MEDS ORDERED: THIAMINE 100 MG TAB PO SCH (17:30)
[2022-02-14 17:36] LABS: Platelet Count 81 k/uL (150-450)
[2022-02-14] MEDS: LORazepam 2 MG/ML INJ IV PRN (18:22)
[2022-02-14 20:29] LABS: Anisocytosis Slight; HCT 30.9 % (39.0-53.0); HGB 9.2 gm/dL (13.0-17.5); Hypochromasia Marked; MCH 25.1 pg (25.0-35.0); MCHC 29.8 g/dL (31.0-37.0); MCV 84.3 fL (80.0-100.0); Mean Platelet Volume 7.8; RBC 3.67 m/uL (4.30-5.90); RDW 18.7 % (11.5-15.5); WBC 4.3 k/uL (3.8-10.6)
[2022-02-15 00:12] LABS: Band Neutrophils % 3 %; Basophils # (M) 0.04 k/uL (0-0.2); Lymphocytes # (M) 0.86 k/uL (1.0-4.8); Metamyelocytes # (M) 0.04 k/uL (0); Metamyelocytes % 1 %; Monocytes # (M) 0.17 k/uL (0-1.0); Neutrophils % (M) 73 %; Nucleated Red Blood Cells 0 /100 WBC (0-0); Total Cells Counted 200
[2022-02-15 00:29] LABS: Platelet Count 74 k/uL (150-450)
[2022-02-15] MEDS: HEPARIN SODIUM,PORCINE/PF 5,000 UNIT/0.5 ML SYRINGE SQ SCH ×3 (00:56→16:53)
[2022-02-15] MEDS: PIPERACILLIN-TAZOBACTAM 3.375 GM in SODIUM CHLORIDE 0.9% 100 ML IVPB SCH ×3 (00:56→16:53)
[2022-02-15] MEDS: LACTATED RINGERS 1,000 ML IV SCH ×3 (01:32→16:50)
[2022-02-15] MEDS: FOLIC ACID 1 MG TAB PO SCH (07:30)
[2022-02-15] MEDS: PANTOPRAZOLE 40 MG/10 ML VIAL IVP SCH ×2 (07:47→20:11)
[2022-02-15] MEDS: THIAMINE 100 MG/ML 2 ML VIAL IVP SCH ×2 (07:47→20:11)
[2022-02-15 11:12] LABS: African American GFR (CKD) 87.1 (60.0-200.0); Albumin 3.6 g/dL (3.8-4.9); Albumin/Globulin Ratio 1.44 (1.60-3.17); Anion Gap 19.2 mmol/L (10.00-18.00); BUN/Creat Ratio 7.55 Ratio (12.00-20.00); Blood Urea Nitrogen 8.3 mg/dL (9.0-27.0); Calcium 8.8 mg/dL (8.7-10.3); Carbon Dioxide 23.8 mmol/L (20.0-27.5); Globulin 2.5 g/dL (1.6-3.3); Magnesium 1.9 mg/dL (1.5-2.4); Non-African American GFR(CKD) 75.2 (60.0-200.0); Phosphorus 1.3 mg/dL (2.4-5.1); Potassium 3.5 mmol/L (3.5-5.5); Total Bilirubin 0.8 mg/dL (0.30-1.20); Total Protein 6.1 g/dL (6.2-8.2)
[2022-02-15 12:19] LABS: Basophils # (A) 0.01 X 10*3/uL (0.00-0.10); Basophils % (A) 0.3 %; Eosinophils # (A) 0.01 X 10*3/uL (0.04-0.35); Eosinophils % (A) 0.3 %; HCT 30.9 % (39.6-50.0); HGB 9.2 g/dL (13.0-17.0); Immature Grans, Automated 0.3 %; Immature Platelet Fraction 5.1 % (1.1-6.1); Lymphocytes # (A) 0.71 X 10*3/uL (0.90-5.00); Lymphocytes % (A) 20.3 %; MCH 24.7 pg (27.0-32.0); MCHC 29.8 g/dL (32.0-37.0); MCV 83.1 fL (80.0-97.0); Mean Platelet Volume 9.5 fL (9.5-12.2); Monocytes # (A) 0.68 X 10*3/uL (0.20-1.00); Monocytes % (A) 19.4 %; NRBC Per 100 WBC 0 /100 WBCS (0.0-0.0); Neutrophils # (A) 2.08 X 10*3/uL (1.80-7.70); Neutrophils % (A) 59.4 %; Platelet Count 79 X 10*3/uL (140-440); RBC 3.72 X 10*6/uL (4.40-5.60); RDW 20.4 % (11.5-14.5)
--- NOTE | 2022-02-15 12:49 | P.GSCN ---
History of Present Illness Consult date: 02/15/22 History of present illness: CHIEF COMPLAINT: Nausea and vomiting 5 days HISTORY OF PRESENT ILLNESS: This is a 56-year-old male with a known history of alcohol abuse and prior episode of pancreatitis. Patient presents to the hospital with complaints of nausea and vomiting for the last 5 days. He reports he was having muscle spasm cramping after the nausea and vomiting. He reports having regular bowel movements. Denies any fever chills or sweats. Patient reports being unable to hold down any liquids or solid foods over the last few days. Patient denies any hematemesis or coffee-ground emesis. Patient had a computed tomography scan abdomen and pelvis showing diffusely thickened inferior aspect of the esophagus, esophagitis cannot be excluded. Subtle superior retroperitoneal fat stranding inseparable from the third part of the duodenum and anterior aspect of the aorta and IVC as described. Underlying acute inflammatory process at that location can't be excluded. Patient reports that his abdominal pain and vomiting have improved today. He is requesting something to eat. Last EGD was in June 2021 which did show linear erosions in the distal esophagus with exudate consistent of reflux esophagitis and a small hiatal hernia. PAST MEDICAL HISTORY: See list. PAST SURGICAL HISTORY: See list. MEDICATIONS: See list. ALLERGIES: See list. SOCIAL HISTORY: No illicit drug use. REVIEW OF SYSTEMS: CONSTITUTIONAL: Denies fever or chills. HEENT: Denies blurred vision, vision changes, or eye pain. Denies hemoptysis CARDIOVASCULAR: Denies chest pain or pressure. RESPIRATORY: No shortness of breath. GASTROINTESTINAL: See HPI for pertinent findings HEMATOLOGIC: Denies bleeding disorders. GENITOURINARY: Denies any blood in urine or increased urinary frequency. SKIN: Denies pruitis. Denies rash. PHYSICAL EXAM: VITAL SIGNS: Reviewed GENERAL: Well-developed in no acute distress. HEENT: No sclera icterus. Extraocular movements grossly intact. Moist buccal mucosa. Head is atraumatic, normocephalic. No nasal drainage. ABDOMEN: Soft. Nondistended. Nontender NEUROLOGIC: Alert and oriented. Cranial nerves II through XII grossly intact. LABORATORY DATA: WBC is 3.50 hemoglobin 9.2 platelets 79 Sodium is 144 potassium is 3.5 creatinine is down from 2.63-1.1 Phosphorus 1.3 LFTs trending downwards Lipase elevated at 794 down to 138 Serum alcohol level 22 IMAGING: Computed tomography scan abdomen findings as stated above ASSESSMENT: 1. Intractable nausea and vomiting 2. Acute alcohol pancreatitis 3. Possible inflammatory process duodenum is likely secondary to patient's acute pancreatitis 4. Esophageal thickening possibly due to patient's nausea and vomiting from pancreatitis 5. Heavy alcohol use PLAN: -No endoscopies planned at this time -Start clear liquid diet -Continue IV Protonix -Educated patient on alcohol cessation -Continue supportive care Thank you for this consultation Physician Glass Carrier note has been reviewed by physician. Signing provider agrees with the documented findings, assessment, and plan of care. I have personally seen and examined the patient, reviewed the REGULATORY COMPLIANCE DIRECTOR /PAs history, exam and MDM and agree with the assessment and plan as written. Based on total visit time, I have performed more than 50% of the visit. As above: Patient minute with intractable nausea vomiting. Patient found have acute pancreatitis. CAT scan shows thickening of the duodenum likely on the basis of pancreatitis. Patient was profoundly dehydrated on admission. Hemoglobin has dropped but this does not appear to be related to acute blood loss. Continue antiacid therapy. Continue clear liquid diet. May advance the patient's pain continues to improve. Currently the patient states he is having minimal discomfort. His nausea and vomiting have improved as well. Patient states he plans to seek alcohol cessation rehabilitation post discharge. Past Medical History Past Medical History: No Reported History Additional Past Medical History / Comment(s): pancreatitis History of Any Multi-Drug Resistant Organisms: None Reported Past Surgical History: Joint Replacement, Orthopedic Surgery Past Anesthesia/Blood Transfusion Reactions: No Reported Reaction Past Psychological History: No Psychological Hx Reported Smoking Status: Never smoker, Second hand smoke exposure Past Alcohol Use History: Abuse, Heavy Additional Past Alcohol Use History / Comment(s): Pt states he drinks 4 alcoholic drinks per day. Smokes marijuana a couple times a week Past Drug Use History: Cocaine, Marijuana - Past Family History Mother Family Medical History: COPD Medications and Allergies Home Medications Medication Instructions Recorded Confirmed Type DULoxetine HCL [Cymbalta] 20 mg PO BID 02/14/22 02/14/22 History Desvenlafaxine Succinate [Pristiq] 50 mg PO DAILY 02/14/22 02/14/22 History Metoprolol Succinate (ER) [Toprol 100 mg PO DAILY 02/14/22 02/14/22 History Xl] Allergies Allergy/AdvReac Type Severity Reaction Status Date / Time No Known Allergies Allergy Verified 02/14/22 06:58 Surgical - Exam Vital Signs Temp Pulse Resp BP Pulse Ox 98.4 F 150 H 18 121/98 97 02/14/22 01:42 02/14/22 01:42 02/14/22 01:42 02/14/22 01:42 02/14/22 01:42 Results - Labs 02/15/22 06:32 02/15/22 06:32 Abnormal Lab Results - Last 24 Hours (Table) 02/14/22 02/14/22 02/15/22 Range/Units 08:05 19:24 06:32 RBC 3.67 L (4.30-5.90) m/uL Hgb 9.2 L (13.0-17.5) gm/dL Hct 30.9 L (39.0-53.0) % MCHC 29.8 L (31.0-37.0) g/dL RDW 18.7 H (11.5-15.5) % Plt Count 81 L D 74 L (150-450) k/uL Lymphocytes # (Manual) 0.86 L (1.0-4.8) k/uL Metamyelocytes # (Man) 0.04 H (0) k/uL Anion Gap 19.20 H (10.00-18.00) mmol/L BUN 8.3 L (9.0-27.0) mg/dL BUN/Creatinine Ratio 7.55 L (12.00-20.00) Ratio Phosphorus 1.3 L (2.4-5.1) mg/dL AST 77 H (14-35) U/L ALT 78 H (10-49) U/L Total Protein 6.1 L (6.2-8.2) g/dL Albumin 3.6 L (3.8-4.9) g/dL Albumin/Globulin Ratio 1.44 L (1.60-3.17) g/dL Lipase 138 H (14-60) U/L Diabetes panel 02/15/22 Range/Units 06:32 Sodium 144 (135-145) mmol/L Potassium 3.5 (3.5-5.5) mmol/L Chloride 101 (96-109) mmol/L Carbon Dioxide 23.8 (20.0-27.5) mmol/L BUN 8.3 L (9.0-27.0) mg/dL Creatinine 1.1 (0.6-1.5) mg/dL Glucose 76 (70-110) mg/dL Calcium 8.8 (8.7-10.3) mg/dL AST 77 H (14-35) U/L ALT 78 H (10-49) U/L Alkaline Phosphatase 48 (41-126) U/L Total Protein 6.1 L (6.2-8.2) g/dL Albumin 3.6 L (3.8-4.9) g/dL Calcium panel 02/15/22 Range/Units 06:32 Calcium 8.8 (8.7-10.3) mg/dL Phosphorus 1.3 L (2.4-5.1) mg/dL Albumin 3.6 L (3.8-4.9) g/dL Pituitary panel 02/15/22 Range/Units 06:32 Sodium 144 (135-145) mmol/L Potassium 3.5 (3.5-5.5) mmol/L Chloride 101 (96-109) mmol/L Carbon Dioxide 23.8 (20.0-27.5) mmol/L BUN 8.3 L (9.0-27.0) mg/dL Creatinine 1.1 (0.6-1.5) mg/dL Glucose 76 (70-110) mg/dL Calcium 8.8 (8.7-10.3) mg/dL Adrenal panel 02/15/22 Range/Units 06:32 Sodium 144 (135-145) mmol/L Potassium 3.5 (3.5-5.5) mmol/L Chloride 101 (96-109) mmol/L Carbon Dioxide 23.8 (20.0-27.5) mmol/L BUN 8.3 L (9.0-27.0) mg/dL Creatinine 1.1 (0.6-1.5) mg/dL Glucose 76 (70-110) mg/dL Calcium 8.8 (8.7-10.3) mg/dL Total Bilirubin 0.80 (0.30-1.20) mg/dL AST 77 H (14-35) U/L ALT 78 H (10-49) U/L Alkaline Phosphatase 48 (41-126) U/L Total Protein 6.1 L (6.2-8.2) g/dL Albumin 3.6 L (3.8-4.9) g/dL
--- NOTE | 2022-02-15 13:50 | P.PN ---
Subjective Progress Note Date: 02/15/22 Principal diagnosis: Alcohol intoxication/withdrawal 56-year-old male with history of alcohol abuse and hypertension presented with alcohol intoxication and impending withdrawal. He also complained of abdominal discomfort. Elevated lactic acid, liver enzymes, lipase, creatinine at the time of admission. Patient seen and examined at bedside. Reports tremors. Denies chest pain shortness of breath or palpitations. Denies abdominal pain today. He was seen by general surgery today and has been started on clear liquids. Endorses nausea but denies vomiting. Afebrile. Vitals reviewed. Objective - Vital Signs Vital signs: Vital Signs Temp 97.8 F 02/15/22 06:05 Pulse 69 02/15/22 06:05 Resp 18 02/15/22 06:05 BP 122/72 02/15/22 06:05 Pulse Ox 98 02/15/22 06:05 FiO2 Intake & Output 02/14/22 02/15/22 02/15/22 18:59 06:59 18:59 Intake Total 1340 Balance 1340 Weight 90.718 kg Intake: Intake, IV Titration 1340 Amount Lactated Ringers 1,000 ml 750 @ 125 mls/hr IV .Q8H ISELA Rx#:[id number] Piperacillin-Tazobactam 3 200 .375 gm In Sodium Chloride 0.9% 100 ml @ 25 mls/hr IVPB Q8HR ISELA Rx# :[id number] Sodium Chloride 0.9% 1, 390 000 ml @ 130 mls/hr IV . Q7H42M STA Rx#:[id number] Oral 0 Other: Voiding Method Toilet # Voids 3 # Bowel Movements 0 - Exam Constitutional: No acute distress, ill-appearing HEENT: Pupils equally reactive to light, atraumatic, normocephalic. Lungs: Clear to auscultation bilaterally, no wheezing, no crackles Cardiovascular: RRR, S1-S2 normal, no murmur, no peripheral edema Abdominal: Soft, nontender, no guarding, rebound or rigidity Extremities: No cyanosis or clubbing Neuro: No focal neurological signs alert - Labs CBC & Chem 7: 02/15/22 06:32 02/15/22 06:32 Labs: Abnormal Lab Results - Last 24 Hours (Table) 02/14/22 02/14/22 02/15/22 Range/Units 08:05 19:24 06:32 WBC 3.50 L (4.50-10.00) X 10*3/uL RBC 3.67 L 3.72 L (4.30-5.90) m/uL Hgb 9.2 L 9.2 L (13.0-17.5) gm/dL Hct 30.9 L 30.9 L (39.0-53.0) % MCH 24.7 L (27.0-32.0) pg MCHC 29.8 L 29.8 L (31.0-37.0) g/dL RDW 18.7 H 20.4 H (11.5-15.5) % Plt Count 81 L D 74 L 79 L (150-450) k/uL Lymphocytes # 0.71 L (0.90-5.00) X 10*3/uL Lymphocytes # (Manual) 0.86 L (1.0-4.8) k/uL Eosinophils # 0.01 L (0.04-0.35) X 10*3/uL Metamyelocytes # (Man) 0.04 H (0) k/uL Anion Gap (10.00-18.00) mmol/L BUN (9.0-27.0) mg/dL BUN/Creatinine Ratio (12.00-20.00) Ratio Phosphorus (2.4-5.1) mg/dL AST (14-35) U/L ALT (10-49) U/L Total Protein (6.2-8.2) g/dL Albumin (3.8-4.9) g/dL Albumin/Globulin Ratio (1.60-3.17) g/dL Lipase (14-60) U/L 02/15/22 Range/Units 06:32 WBC (4.50-10.00) X 10*3/uL RBC (4.30-5.90) m/uL Hgb (13.0-17.5) gm/dL Hct (39.0-53.0) % MCH (27.0-32.0) pg MCHC (31.0-37.0) g/dL RDW (11.5-15.5) % Plt Count (150-450) k/uL Lymphocytes # (0.90-5.00) X 10*3/uL Lymphocytes # (Manual) (1.0-4.8) k/uL Eosinophils # (0.04-0.35) X 10*3/uL Metamyelocytes # (Man) (0) k/uL Anion Gap 19.20 H (10.00-18.00) mmol/L BUN 8.3 L (9.0-27.0) mg/dL BUN/Creatinine Ratio 7.55 L (12.00-20.00) Ratio Phosphorus 1.3 L (2.4-5.1) mg/dL AST 77 H (14-35) U/L ALT 78 H (10-49) U/L Total Protein 6.1 L (6.2-8.2) g/dL Albumin 3.6 L (3.8-4.9) g/dL Albumin/Globulin Ratio 1.44 L (1.60-3.17) g/dL Lipase 138 H (14-60) U/L Assessment and Plan Assessment: Alcohol withdrawal in active alcoholic -CIWA protocol -Thiamine, multivitamin -IV fluids -Fall, seizure, aspiration precautions Lactic acidosis, causing high anion gap metabolic acidosis -Resolved with IV fluids Alcoholic acute pancreatitis -IV fluids, pain control -Gen. surgery consulted -Started on clears today. Gastritis -Continue Protonix DVT prophylaxis -Heparin subq
[2022-02-15 15:48] VITALS: RESP 16
[2022-02-15] MEDS: LORazepam 2 MG/ML INJ IV PRN (19:52)
[2022-02-16] MEDS: HEPARIN SODIUM,PORCINE/PF 5,000 UNIT/0.5 ML SYRINGE SQ SCH ×2 (00:32→07:36)
[2022-02-16] MEDS: PIPERACILLIN-TAZOBACTAM 3.375 GM in SODIUM CHLORIDE 0.9% 100 ML IVPB SCH ×2 (00:33→07:37)
[2022-02-16] MEDS: LACTATED RINGERS 1,000 ML IV SCH ×2 (01:16→07:38)
[2022-02-16] MEDS: FOLIC ACID 1 MG TAB PO SCH (07:36)
[2022-02-16 07:39] VITALS: BP 116/69; PULSE 79; TEMP 98.1
[2022-02-16] MEDS: PANTOPRAZOLE 40 MG/10 ML VIAL IVP SCH (09:21)
[2022-02-16] MEDS: THIAMINE 100 MG/ML 2 ML VIAL IVP SCH (09:21)
[2022-02-16 09:40] LABS: African American GFR (CKD) 116.6 (60.0-200.0); Anion Gap 14.6 mmol/L (10.00-18.00); BUN/Creat Ratio 5.63 Ratio (12.00-20.00); Blood Urea Nitrogen 4.5 mg/dL (9.0-27.0); Calcium 8.8 mg/dL (8.7-10.3); Carbon Dioxide 27.4 mmol/L (20.0-27.5); Non-African American GFR(CKD) 100.6 (60.0-200.0); Potassium 2.9 mmol/L (3.5-5.5)
[2022-02-16 10:24] LABS: Basophils # (A) 0.01 X 10*3/uL (0.00-0.10); Basophils % (A) 0.4 %; Eosinophils # (A) 0.01 X 10*3/uL (0.04-0.35); Eosinophils % (A) 0.4 %; HCT 31.2 % (39.6-50.0); HGB 9.7 g/dL (13.0-17.0); Immature Grans, Automated 0.4 %; Immature Platelet Fraction 5.9 % (1.1-6.1); Lymphocytes # (A) 0.69 X 10*3/uL (0.90-5.00); Lymphocytes % (A) 28.8 %; MCH 25.1 pg (27.0-32.0); MCHC 31.1 g/dL (32.0-37.0); MCV 80.8 fL (80.0-97.0); Mean Platelet Volume 10.4 fL (9.5-12.2); Monocytes # (A) 0.39 X 10*3/uL (0.20-1.00); Monocytes % (A) 16.3 %; NRBC Per 100 WBC 0 /100 WBCS (0.0-0.0); Neutrophils # (A) 1.29 X 10*3/uL (1.80-7.70); Neutrophils % (A) 53.7 %; Platelet Count 78 X 10*3/uL (140-440); RBC 3.86 X 10*6/uL (4.40-5.60)
[2022-02-16] MEDS ORDERED: POTASSIUM CHLORIDE 40 MEQ in WATER FOR INJECTION 1 100ML.BAG IVPB STA (11:06)
[2022-02-16] MEDS ORDERED: POTASSIUM CHLORIDE ER 20 MEQ TAB.ER PO STA (11:06)
[2022-02-16] MEDS ORDERED: POTASSIUM CHLORIDE 20 MEQ in WATER FOR INJECTION 1 100ML.BAG IVPB SCH (11:15)
[2022-02-16] MEDS ORDERED: MAGNESIUM SULFATE-D5W PMX 1 GM in DEXTROSE/WATER 1 100ML.BAG IVPB SCH (11:15)
--- NOTE | 2022-02-16 12:32 | P.DS ---
Providers Date of admission: 02/14/22 06:42 Attending physician: Ramez Fish MD Consults: 02/14/22 16:42 Consult Physician Stat Consulting Provider: Konrad Mak Reason/Comments: Duodenitis Do you want consulting provider notified?: Yes Primary care physician: Nabila Tillman MD Hospital Course: Patient is a 56-year-old male with a history of vocal abuse hypertension he presented to the hospital with alochol INTOXICATION withdrawal. Patient had abnormal lab findings of increased lipase, increased LFTs. Patient was having abdominal pain on admission. Patient was diagnosed with acute alcoholic pancreatitis, acute WITHDRAWAL. On 02/16/2022 patient was improved with his overall symptoms. However he still had significant electrolyte abnormalities including hypokalemia. Patient was alert and oriented. His abdominal pain had resolved. Patient was adamant about being discharged from the hospital. I discussed in depth that we could not safely discharge patient home with abnormal blood work and that he would need to stay in the hospital longer today for repeat blood work with the possibility of being discharged in the evening however patient did not want to wait any further in the hospital and decided to leave AGAINST MEDICAL ADVICE. Patient Condition at Discharge: Serious Plan - Discharge Summary Discharge Rx Participant: No New Discharge Prescriptions: No Action Metoprolol Succinate (ER) [Toprol Xl] 100 mg PO DAILY Desvenlafaxine Succinate [Pristiq] 50 mg PO DAILY DULoxetine HCL [Cymbalta] 20 mg PO BID Discharge Medication List DULoxetine HCL [Cymbalta] 20 mg PO BID 02/14/22 [History] Desvenlafaxine Succinate [Pristiq] 50 mg PO DAILY 02/14/22 [History] Metoprolol Succinate (ER) [Toprol Xl] 100 mg PO DAILY 02/14/22 [History] Follow up Appointment(s)/Referral(s): Nabila Tillman MD [Primary Care Provider] - 1-2 days
== END 2022-02-16 13:00 | disposition left against medical advice (07) | DRG 894 ==
LOC: EC 23:33 → 4SSUR 02-14 06:42
PROVIDERS: ADMIT Internal Medicine; ATTEND Internal Medicine
PROC: HZ2ZZZZ Detoxification Services for Substance Abuse Treatment (ICD-10-PCS; principal; 2022-02-14)
DX: F10.239 Alcohol dependence with withdrawal, unspecified (principal); K85.20 Alcohol induced acute pancreatitis without necrosis or infection; E87.2 Acidosis; Z53.29 Procedure and treatment not carried out because of patient's decision for other reasons; G40.909 Epilepsy, unspecified, not intractable, without status epilepticus; I10 Essential (primary) hypertension; M62.838 Other muscle spasm; Y90.1 Blood alcohol level of 20-39 mg/100 ml; E86.0 Dehydration; E87.6 Hypokalemia; F10.229 Alcohol dependence with intoxication, unspecified; K21.00 Gastro-esophageal reflux disease with esophagitis, without bleeding; K29.70 Gastritis, unspecified, without bleeding; K44.9 Diaphragmatic hernia without obstruction or gangrene; K29.80 Duodenitis without bleeding; Z79.899 Other long term (current) drug therapy; Z82.5 Family history of asthma and other chronic lower respiratory diseases
CPT/HCPCS: 36415; 71046; 74176; 80048; 80053; 80320; 82150; 82803; 83605; 83690; 83735; 84100; 84484; 85025; 85027; 86850; 86900; 86901; 93005; 96361; 96365; 96366; 96372; 96375; 96376; 99285

== ENCOUNTER 2024-11-13 01:07 | Inpatient (IN) | payer OTHER ==
--- NOTE | 2024-11-13 01:46 | ED ---
General Adult HPI - General Chief complaint: Alcohol Stated complaint: withdrawl Time Seen by Provider: 11/13/24 01:22 Source: patient, EMS Mode of arrival: EMS - History of Present Illness Initial comments: Patient is a 59-year-old gentleman with past medical history of alcohol use disorder presenting today for alcohol drawl symptoms. States he typically drinks 1/5 a day, last drink was 2 to 3 days ago and states tremor started shortly after. Endorses mild diaphoresis, nausea, has had a few episodes of nonbloody nonbilious emesis. Denies chest pain, shortness of breath or abdominal pain. States he has had intermittent nonbloody loose stools. Denies hallucinations, headache, dizziness numbness or weakness. Denies illicit drug use. - Related Data Home Medications Medication Instructions Recorded Confirmed Fenofibrate [Lofibra] 54 mg PO DAILY 10/27/24 11/13/24 Mirtazapine [Remeron] 15 mg PO HS 10/27/24 11/13/24 Naltrexone HCl [Revia] 50 mg PO DAILY 10/27/24 11/13/24 OLANZapine [ZyPREXA] 10 mg PO HS 10/27/24 11/13/24 Pantoprazole [Protonix] 40 mg PO DAILY 10/27/24 11/13/24 buPROPion HCL [buPROPion HCL XL] 150 mg PO DAILY 10/27/24 11/13/24 Apixaban [Eliquis] 5 mg PO DIRECTED 11/13/24 11/13/24 Testosterone Cypionate 100mg/Ml 100 mg SQ Q14D 11/13/24 11/13/24 Previous Rx's Medication Instructions Recorded Metoprolol Tartrate [Lopressor] 50 mg PO TID #0 11/15/24 Allergies Allergy/AdvReac Type Severity Reaction Status Date / Time No Known Allergies Allergy Verified 11/13/24 11:11 Review of Systems ROS Statement: Those systems with pertinent positive or pertinent negative responses have been documented in the HPI. ROS Other: All systems not noted in ROS Statement are negative. Past Medical History Past Medical History: Atrial Fibrillation, Pneumonia, Supraventricular Tachycardia (SVT) Additional Past Medical History / Comment(s): pancreatitis, low blood pressure, "tear in throat", ETOH History of Any Multi-Drug Resistant Organisms: None Reported Past Surgical History: Joint Replacement, Orthopedic Surgery Past Anesthesia/Blood Transfusion Reactions: No Reported Reaction Past Psychological History: No Psychological Hx Reported Smoking Status: Never smoker, Second hand smoke exposure Past Alcohol Use History: Abuse, Daily, Heavy Past Drug Use History: Cocaine, Marijuana - Past Family History Mother Family Medical History: COPD Father Additional Family Medical History / Comment(s): father passed from esophageal cancer General Exam - General Exam Comments Initial Comments: PE: CONSTITUTIONAL: [no apparent distress, well appearing] SKIN: [warm, dry, no jaundice, hives or petechiae damp] EYES:[ pupils are equally round, extraocular movements intact without nystagmus, clear conjunctiva, non-icteric sclera] HENT: [normocephalic, atraumatic, moist mucus membranes, oropharynx clear without exudates] NECK: , [Full range of motion, normal appearance] PULMONARY: [clear to auscultation without wheezes, rhonchi, or rales, normal excursion, no accessory muscle use and no stridor] CARDIOVASCULAR:[Tachycardia, regular rate, rhythm, normal S1 and S2. No brown reciated murmurs, rubs or gallops. Strong radial pulses with intact distal perfusion. No lower extremity edema] GASTROINTESTINAL: [soft, active bowel sounds throughout, non-tender, non- distended, no palpable masses, no rebound or guarding. No hepatosplenomegaly] GENITOURINARY: MUSCULOSKELETAL: [Extremities have no gross deformity, no edema, redness, or swelling. No calf swelling ] NEUROLOGIC: [_a/o x 3, GCS 15, normal mentation and speech. Moves all extremities x 4 without motor or sensory deficit diffuse tremors and tongue fasciculations] PSYCHIATRIC:[ _Anxious mood and affect, thought process is clear and linear] Course Vital Signs 11/13/24 11/13/24 11/13/24 01:19 03:43 05:10 Pulse Rate 106 H 97 99 Respiratory 22 20 20 Rate Blood Pressure 128/87 128/96 126/89 O2 Sat by Pulse 95 93 L 94 L Oximetry Medical Decision Making - Medical Decision Making Was pt. sent in by a medical professional or institution (, PA, FRUCTOSE LOADER, urgent care, hospital, or fdc...) When possible be specific @ -No Did you speak to anyone other than the patient for history (EMS, parent, family, police, friend...)? What history was obtained from this source @ -No Did you review nursing and triage notes (agree or disagree)? Why? @ -I reviewed nursing and triage notes Were old charts reviewed (outside hosp., previous admission, EMS record, old EKG, old radiological studies, urgent care reports/EKG's, fdc records)? Report findings @ -Medical records reviewed-patient was still admitted at beginning of this month for pancreatitis, Echocardiogram performed during that visit showed normal LV function, CT abdomen pelvis done at that time showed homogenous enhancement o f the pancreatic parenchyma, and atrophic right kidney, duodenitis esophagitis hepatic steatosis Differential Diagnosis (chest pain, altered mental status, abdominal pain women, abdominal pain men, vaginal bleeding, weakness, fever, dyspnea, syncope, headache, dizziness, GI bleed, back pain, seizure, CVA, palpatations, mental health, musculoskeletal)? @Differential diagnosis remains broad over top considerations include alcohol withdrawal syndrome, drug withdrawal, electrolyte abnormality, alcohol or drug intoxication this is not an all-inclusive list EKG interpreted by me (3pts min.). @ -As above X-rays interpreted by me (1pt min.). @ -None done CT interpreted by me (1pt min.). @ -None done U/S interpreted by me (1pt. min.). @ -None done What testing was considered but not performed or refused? (CT, X-rays, U/S, labs)? Why? @ -None What meds were considered but not given or refused? Why? @ -None Did you discuss the management of the patient with other professionals (professionals i.e. , PA, FRUCTOSE LOADER, lab, RT, psych nurse, social security benefits interviewer, planning advisor, teacher, police liaison officer, case planner)? Give summary @ -No Was smoking cessation discussed for >3mins.? @ -No Was critical care preformed (if so, how long)? Yes, 35-minute Were there social determinants of health that impacted care today? How? (Homelessness, low income, unemployed, alcoholism, drug addiction, transportation, low edu. Level, literacy, decrease access to med. care, senior living, rehab)? @Alcoholism Was there de-escalation of care discussed even if they declined (Discuss DNR or withdrawal of care, Hospice)? @ -No What co-morbidities impacted this encounter? (DM, HTN, Smoking, COPD, CAD, Cancer, CVA, ARF, Chemo, Hep., AIDS, mental health diagnosis, sleep apnea, morbid obesity)? @Alcoholism Was patient admitted / discharged? Hospital course, mention meds given and route, prescriptions, significant lab abnormalities, going to OR and other pertinent info. @Admission- Patient is a pleasant 59-year-old gentleman presenting today for alcohol withdrawal symptoms. CIWA 20. Patient given 10 mg IV Valium on arrival, alcohol withdrawal labs and vitamins ordered. Pt agreeable w/ POC. Patient remained tremulous despite initial dose of 10 mg IV Valium received second dose. On reassessment after total of 20 mg IV Valium patient sleeping comfortably, tremors have resolved. Will admit for alcohol withdrawal. Labs reviewed and significant for magnesium of 1. Ordered 4 g of replace magnesium. Will admit. Case discussed w/ Dr. Griffin, kindly accepts pt for admission. Undiagnosed new problem with uncertain prognosis? @ -No Drug Therapy requiring intensive monitoring for toxicity (Heparin, Nitro, Insulin, Cardizem)? @ -No Were any procedures done? @ -No Diagnosis/symptom? @Alcohol withdrawal Acute, or Chronic, or Acute on Chronic? @ acute Uncomplicated (without systemic symptoms) or Complicated (systemic symptoms)? @ -complicated Side effects of treatment? @ -No Exacerbation, Progression, or Severe Exacerbation? @ -No Poses a threat to life or bodily function? How? (Chest pain, [place], [place], pneumonia, PE, COPD, DKA, ARF, appy, cholecystitis, CVA, Diverticulitis, Homicidal, Suicidal, threat to staff... and all critical care pts) @yes, if left untreated could progress to delirium tremens - Lab Data Result diagrams: 11/15/24 05:40 11/15/24 05:40 Lab Results 11/13/24 11/13/24 11/13/24 Range/Units 01:30 01:30 01:55 WBC 2.5 L (3.8-10.6) k/uL RBC 4.05 L (4.30-5.90) m/uL Hgb 11.0 L (13.0-17.5) gm/dL Hct 34.2 L (39.0-53.0) % MCV 84.3 (80.0-100.0) fL MCH 27.2 (25.0-35.0) pg MCHC 32.2 (31.0-37.0) g/dL RDW 19.8 H (11.5-15.5) % Plt Count 201 (150-450) k/uL MPV 6.7 Neutrophils % (Manual) 49 % Lymphocytes % (Manual) 37 % Monocytes % (Manual) 12 % Basophils % (Manual) 2 % Neutrophils # (Manual) 1.23 L (1.3-7.7) k/uL Lymphocytes # (Manual) 0.93 L (1.0-4.8) k/uL Monocytes # (Manual) 0.30 (0-1.0) k/uL Basophils # (Manual) 0.05 (0-0.2) k/uL Nucleated RBCs 0 (0-0) /100 WBC Manual Slide Review Performed Hypochromasia Slight Anisocytosis Slight Microcytosis Slight PT 12.2 (10.0-12.5) sec INR 1.1 (<1.2) Sodium 136 L (137-145) mmol/L Potassium 3.5 (3.5-5.1) mmol/L Chloride 100 (98-107) mmol/L Carbon Dioxide 25 (22-30) mmol/L Anion Gap 11 mmol/L BUN 5 L (9-20) mg/dL Creatinine 0.98 (0.66-1.25) mg/dL Est GFR (CKD-EPI)AfAm >90 (>60 ml/min/1.73 sqM) Est GFR (CKD-EPI)NonAf 85 (>60 ml/min/1.73 sqM) Glucose 111 H (74-99) mg/dL POC Glucose (mg/dL) (70-110) mg/dL POC Glu Batch Attendant ID Calcium 8.3 L (8.4-10.2) mg/dL Phosphorus 3.7 (2.5-4.5) mg/dL Magnesium 1.0 L (1.6-2.3) mg/dL Total Bilirubin 1.2 (0.2-1.3) mg/dL AST 33 (17-59) U/L ALT 20 (4-49) U/L Alkaline Phosphatase 65 (38-126) U/L Total Protein 6.0 L (6.3-8.2) g/dL Albumin 3.3 L (3.5-5.0) g/dL Amylase 98 (30-110) U/L Lipase 224 (23-300) U/L Serum Alcohol <10 mg/dL 11/13/24 Range/Units 02:00 WBC (3.8-10.6) k/uL RBC (4.30-5.90) m/uL Hgb (13.0-17.5) gm/dL Hct (39.0-53.0) % MCV (80.0-100.0) fL MCH (25.0-35.0) pg MCHC (31.0-37.0) g/dL RDW (11.5-15.5) % Plt Count (150-450) k/uL MPV Neutrophils % (Manual) % Lymphocytes % (Manual) % Monocytes % (Manual) % Basophils % (Manual) % Neutrophils # (Manual) (1.3-7.7) k/uL Lymphocytes # (Manual) (1.0-4.8) k/uL Monocytes # (Manual) (0-1.0) k/uL Basophils # (Manual) (0-0.2) k/uL Nucleated RBCs (0-0) /100 WBC Manual Slide Review Hypochromasia Anisocytosis Microcytosis PT (10.0-12.5) sec INR (<1.2) Sodium (137-145) mmol/L Potassium (3.5-5.1) mmol/L Chloride (98-107) mmol/L Carbon Dioxide (22-30) mmol/L Anion Gap mmol/L BUN (9-20) mg/dL Creatinine (0.66-1.25) mg/dL Est GFR (CKD-EPI)AfAm (>60 ml/min/1.73 sqM) Est GFR (CKD-EPI)NonAf (>60 ml/min/1.73 sqM) Glucose (74-99) mg/dL POC Glucose (mg/dL) 102 (70-110) mg/dL POC Glu Batch Attendant ID Caya Lashawn Calcium (8.4-10.2) mg/dL Phosphorus (2.5-4.5) mg/dL Magnesium (1.6-2.3) mg/dL Total Bilirubin (0.2-1.3) mg/dL AST (17-59) U/L ALT (4-49) U/L Alkaline Phosphatase (38-126) U/L Total Protein (6.3-8.2) g/dL Albumin (3.5-5.0) g/dL Amylase (30-110) U/L Lipase (23-300) U/L Serum Alcohol mg/dL Disposition Clinical Impression: Hypomagnesemia, Dehydration, Alcohol withdrawal Disposition: ADMITTED IP TO THIS HOSP Condition: Stable
[2024-11-13] MEDS: SODIUM CHLORIDE 0.9% 1,000 ML IV STA (01:49)
[2024-11-13] MEDS: THIAMINE 100 MG/ML 2 ML VIAL IM STA (01:51)
[2024-11-13] MEDS: MULTIVITAMINS, THERA 1 EACH TAB PO STA (01:52)
[2024-11-13] MEDS: FOLIC ACID 1 MG TAB PO STA (01:52)
[2024-11-13 02:02] LABS: Glucose,Whole Blood 102 mg/dL (70-110)
[2024-11-13 02:11] LABS: Anisocytosis Slight; HCT 34.2 % (39.0-53.0); Hypochromasia Slight; MCH 27.2 pg (25.0-35.0); MCHC 32.2 g/dL (31.0-37.0); MCV 84.3 fL (80.0-100.0); Mean Platelet Volume 6.7; Microcytosis Slight; Platelet Count 201 k/uL (150-450); RBC 4.05 m/uL (4.30-5.90); RDW 19.8 % (11.5-15.5); WBC 2.5 k/uL (3.8-10.6)
[2024-11-13 02:12] LABS: INR 1.1 (<1.2); Prothrombin Time 12.2 sec (10.0-12.5)
[2024-11-13] MEDS: LOPERAMIDE 2 MG CAP PO STA (02:15)
[2024-11-13 03:05] LABS: Basophils # (M) 0.05 k/uL (0-0.2); Lymphocytes # (M) 0.93 k/uL (1.0-4.8); Neutrophils # (M) 1.23 k/uL (1.3-7.7); Neutrophils % (M) 49 %; Nucleated Red Blood Cells 0 /100 WBC (0-0); Total Cells Counted 100
[2024-11-13] MEDS ORDERED: LORazepam 1 MG TAB PO PRN (03:16)
[2024-11-13] MEDS ORDERED: LORazepam 0.5 MG TAB PO PRN (03:16)
[2024-11-13] MEDS: DEXTROSE 5%-0.45% NACL 1,000 ML IV SCH (03:42)
[2024-11-13 03:49] LABS: ALT 20 U/L (4-49); AST 33 U/L (17-59); African American GFR (CKD) >90 (>60 ml/min/1.73 sqM); Albumin 3.3 g/dL (3.5-5.0); Alcohol <10 mg/dL; Alkaline Phosphatase 65 U/L (38-126); Amylase 98 U/L (30-110); Anion Gap 11 mmol/L; Blood Urea Nitrogen 5 mg/dL (9-20); Calcium 8.3 mg/dL (8.4-10.2); Carbon Dioxide 25 mmol/L (22-30); Chloride 100 mmol/L (98-107); Glucose 111 mg/dL (74-99); Lipase 224 U/L (23-300); Non-African American GFR(CKD) 85 (>60 ml/min/1.73 sqM); Phosphorus 3.7 mg/dL (2.5-4.5); Potassium 3.5 mmol/L (3.5-5.1); Sodium 136 mmol/L (137-145); Total Bilirubin 1.2 mg/dL (0.2-1.3)
[2024-11-13] MEDS: MAGNESIUM SULFATE-D5W PMX 1 GM in DEXTROSE/WATER 1 100ML.BAG IVPB SCH (04:15)
[2024-11-13] MEDS ORDERED: NALOXONE 0.4 MG/ML 1 ML VIAL IV PRN (04:17)
[2024-11-13] MEDS ORDERED: MAG HYDROX/AL HYDROX/SIMETH 30 ML CUP PO PRN (04:17)
[2024-11-13] MEDS ORDERED: CALCIUM CARBONATE 500 MG CHEWABLE PO PRN (04:17)
--- NOTE | 2024-11-13 05:28 | P.HPIM ---
History of Present Illness H&P Date: 11/13/24 Patient is a 59-year-old male with a past medical history significant for alcohol use disorder and recently diagnosed A-fib on Eliquis presents to the emergency department for alcohol withdrawal. He states that his last drink was about 3 days ago, he was previously drinking about 1/5 a day. He has been at [facility] for the last 2 days and he plans to return there after discharge. He has gone through alcohol withdrawals before but states that this is the worst the symptoms have been. He states that yesterday he had a couple episodes of diarrhea and that they were reddish in color. He has a history of bleeding esophageal varices about a year ago. He had an episode of nonbloody emesis yesterday as well. He denies any falls or trauma. He reports severe tremors, nausea, and chills. He denies chest pain, dyspnea, headaches, abdominal pain, and palpitations. Initial vitals: BP 128/87, TN 106 bpm, RR 22, 95% on room air Initial labs: WBC 2.5, hemoglobin 11, platelets 201, sodium 136, potassium 3.5, chloride 100, CO2 25, BUN 5, creatinine 0.98, glucose 111, calcium 8.3, magnesium 1, total protein 6, lipase 224, serum alcohol <10 Initial EKG: Sinus tachycardia with ventricular rate 116 bpm, no ST segment changes, QTc 413 ms ED documentation reviewed. Given Valium 10 mg IV x 2, magnesium IV x 1, 0.9% saline 1 L bolus x 1, and thiamine 100 mg IM x 1 Review of Systems Pertinent positives and negatives as discussed in HPI, a complete review of s ystems was performed and all other systems are negative. Past Medical History Past Medical History: Atrial Fibrillation, Pneumonia, Supraventricular Tachycardia (SVT) Additional Past Medical History / Comment(s): pancreatitis, low blood pressure, ETOH History of Any Multi-Drug Resistant Organisms: None Reported Past Surgical History: Joint Replacement, Orthopedic Surgery Past Anesthesia/Blood Transfusion Reactions: No Reported Reaction Past Psychological History: No Psychological Hx Reported Smoking Status: Never smoker, Second hand smoke exposure Past Alcohol Use History: Abuse, Daily, Heavy Past Drug Use History: Cocaine, Marijuana - Past Family History Mother Family Medical History: COPD Father Additional Family Medical History / Comment(s): father passed from esophageal cancer Medications and Allergies Home Medications Medication Instructions Recorded Confirmed Type Fenofibrate [Lofibra] 54 mg PO DAILY 10/27/24 10/27/24 History Mirtazapine [Remeron] 15 mg PO HS 10/27/24 10/27/24 History Naltrexone HCl [Revia] 50 mg PO DAILY 10/27/24 10/27/24 History OLANZapine [ZyPREXA] 10 mg PO HS 10/27/24 10/27/24 History Pantoprazole [Protonix] 40 mg PO DAILY 10/27/24 10/27/24 History buPROPion HCL [buPROPion HCL XL] 150 mg PO DAILY 10/27/24 10/27/24 History Apixaban [Eliquis] 5 mg PO BID #60 tab 11/01/24 Rx Metoprolol Tartrate [Lopressor] 50 mg PO TID #90 tab 11/01/24 Rx Allergies Allergy/AdvReac Type Severity Reaction Status Date / Time No Known Allergies Allergy Verified 11/13/24 01:28 Physical Exam Vitals: Vital Signs Pulse Resp BP Pulse Ox 11/13/24 03:43 97 20 128/96 93 L 11/13/24 01:19 106 H 22 128/87 95 Intake and Output 11/12/24 11/12/24 11/13/24 14:59 22:59 06:59 Other: Weight 86.183 kg Vital signs reviewed General: Nontoxic, no distress, appears stated age, well-appearing Derm: Warm, dry, intact, no cyanosis Head: Atraumatic, normocephalic, symmetric Eyes: EOMI, anicteric sclera, PERRL Ears: Normal appearing, no external lesions, hearing intact Nose: Normal appearing, no external lesions Mouth: No lip lesion, mucus membranes moist, no tonsilar hypertrophy or exudate Neck: Supple, without lesions, trachea midline Cardiovascular: S1-S2 regular, no murmur, no pedal edema Lungs: CTA bilateral, no wheezes, no rhonchi, no rales, no accessory muscle use Abdominal: Soft, non-tender to palpation, bowel sounds present Extremities: Muscle strength 5/5 in all extremities, radial pulses 2+ bilateral, posterior tibial pulses 2+ bilateral Neuro: Alert, oriented x3, gross neurological examination did not reveal any focal deficits. Cranial nerves II to XII grossly intact. Psych: Appropriate affect and mood Results CBC & Chem 7: 11/13/24 01:30 11/13/24 01:30 Labs: Abnormal Lab Results - Last 24 Hours (Table) 11/13/24 11/13/24 Range/Units 01:30 01:30 WBC 2.5 L (3.8-10.6) k/uL RBC 4.05 L (4.30-5.90) m/uL Hgb 11.0 L (13.0-17.5) gm/dL Hct 34.2 L (39.0-53.0) % RDW 19.8 H (11.5-15.5) % Neutrophils # (Manual) 1.23 L (1.3-7.7) k/uL Lymphocytes # (Manual) 0.93 L (1.0-4.8) k/uL Sodium 136 L (137-145) mmol/L BUN 5 L (9-20) mg/dL Glucose 111 H (74-99) mg/dL Calcium 8.3 L (8.4-10.2) mg/dL Magnesium 1.0 L (1.6-2.3) mg/dL Total Protein 6.0 L (6.3-8.2) g/dL Albumin 3.3 L (3.5-5.0) g/dL Assessment and Plan Assessment: Patient is a 59-year-old male with past medical history significant for alcohol use disorder and recently diagnosed A-fib on Eliquis admitted for alcohol withdrawal. also reporting red diarrhea rule out GI bleed Plan: Active #. Alcohol dependance and abuse, monitor for alcohol withdrawal Patient denies falls/trauma Benzo per [facility] protocol Continue with thiamine 100 mg p.o. daily Consult social work for alcohol support services seizure precautions #. Episode of bloody diarrhea Monitor hemoglobin q 6hr ; transfuse if <7 Protonix 40 mg p.o. daily Consult surgery hold eliquis platelets unremarkable PT / INR unremarkable #. Hypomagnesemia Magnesium 1 Replete with magnesium 1 g every hour x 4 total Repeat magnesium #. Leukopenia #. Normocytic anemia Likely related to alcohol use disorder Monitor CBC Chronic #. A-fib on Eliquis Hold Eliquis for suspected GI bleed DVT prophylaxis: SCDs due to suspected GI bleed GI prophylaxis: Protonix 40 mg p.o. daily The patient is admitted with an anticipated less than 2 midnight stay for evaluation of alcohol withdrawal CODE STATUS: Full code Anticipated discharge place: Pending clinical course I have seen and evaluated the patient today. I Discussed the case with the resident and agree with the resident's findings I edited the assessment and plan as necessary as documented in the resident's note.
[2024-11-13] MEDS: LORazepam 1 MG TAB PO PRN ×3 (05:36→18:56)
[2024-11-13] MEDS: PANTOPRAZOLE 40 MG TABLET PO SCH (05:36)
[2024-11-13] MEDS ORDERED: LORazepam 2 MG/ML INJ IV PRN ×2 (05:53)
[2024-11-13 07:49] LABS: Anisocytosis Slight; Basophils % (A) 0 %; Eosinophils % (A) 1 %; HCT 35.2 % (39.0-53.0); HGB 11.3 gm/dL (13.0-17.5); Hypochromasia Slight; Lymphocytes # (A) 0.7 k/uL (1.0-4.8); Lymphocytes % (A) 27 %; MCH 27.4 pg (25.0-35.0); MCHC 32.1 g/dL (31.0-37.0); MCV 85.4 fL (80.0-100.0); Mean Platelet Volume 7.3; Monocytes # (A) 0.3 k/uL (0-1.0); Monocytes % (A) 12 %; Neutrophils # (A) 1.5 k/uL (1.3-7.7); Neutrophils % (A) 56 %; Platelet Count 185 k/uL (150-450); RBC 4.12 m/uL (4.30-5.90); RDW 19.7 % (11.5-15.5); WBC 2.6 k/uL (3.8-10.6)
[2024-11-13] MEDS: FENOFIBRATE 54 MG TAB PO SCH (08:08)
[2024-11-13] MEDS: FAMOTIDINE 20 MG TAB PO SCH (08:08)
[2024-11-13] MEDS: METOPROLOL TARTRATE 50 MG TAB PO SCH (08:08)
[2024-11-13 08:37] LABS: Appearance,Urine Clear (Clear); Bilirubin,Urine Negative (Negative); Blood,Urine Negative (Negative); Color,Urine Colorless; Glucose,Urine (UA) Negative (Negative); Ketones,Urine Negative (Negative); Leukocyte Esterase,Urine Negative (Negative); Nitrite,Urine Negative (Negative); PH, Urine 7.5 (5.0-8.0); Protein,Urine Negative (Negative); Specific Gravity,Urine 1.007 (1.001-1.035); Urobilinogen,Urine <2.0 mg/dL (<2.0)
[2024-11-13 08:56] LABS: Amphetamine Screen,Urine Not Detected (NotDetected); Barbiturate Screen,Urine Not Detected (NotDetected); Benzodiazepines Screen,Urine Detected (NotDetected); Cocaine Screen,Urine Not Detected (NotDetected); Methadone Screen, Urine Not Detected (NotDetected); Opiate Screen,Urine Not Detected (NotDetected); Oxycodone Screen, Urine Not Detected (NotDetected); Phencyclidine Screen,Urine Not Detected (NotDetected); Tricyclic Antidepressant,Urine Not Detected (NotDetected); Urn Cannabinoid Scrn Detected (NotDetected)
[2024-11-13] MEDS ORDERED: APIXABAN 5 MG TAB PO SCH (09:00)
[2024-11-13 12:17] LABS: Anisocytosis Slight; Basophils % (A) 1 %; Eosinophils % (A) 1 %; HCT 35.2 % (39.0-53.0); HGB 11.3 gm/dL (13.0-17.5); Hypochromasia Slight; Lymphocytes # (A) 0.9 k/uL (1.0-4.8); Lymphocytes % (A) 31 %; MCH 27.4 pg (25.0-35.0); MCHC 32.1 g/dL (31.0-37.0); MCV 85.5 fL (80.0-100.0); Mean Platelet Volume 7.3; Monocytes # (A) 0.3 k/uL (0-1.0); Monocytes % (A) 9 %; Neutrophils # (A) 1.6 k/uL (1.3-7.7); Neutrophils % (A) 55 %; Platelet Count 177 k/uL (150-450); RBC 4.12 m/uL (4.30-5.90); RDW 19.8 % (11.5-15.5); WBC 2.9 k/uL (3.8-10.6)
--- NOTE | 2024-11-13 14:54 | P.PN ---
Subjective Progress Note Date: 11/13/24 Hospital course: Patient is a 59-year-old male with a past medical history of alcohol abuse, polysubstance abuse with cocaine and marijuana, and atrial fibrillation on anticoagulation with Eliquis. He presented to the emergency department from [facility] with complaints of alcohol withdrawal. Upon arrival to our facility, patient underwent evaluation in the emergency department. Vital signs upon arrival show blood pressure 128/87, heart rate 106, respiratory rate 22, temp 98.2 F, and SpO2 of 95% on room air. EKG completed showing sinus tachycardia at 116 bpm. Labs completed and reviewed. CBC showing bicytopenia with WBC count of 2.5 and hemoglobin of 11.0. Coagulation profile normal findings. BMP showing no significant abnormalities with sodium of 136 and glucose of 111. Magnesium was 1.0. Liver profile normal findings with exception of hypoalbuminemia with albumin of 3.3. Amylase and lipase normal findings. Urinalysis negative for infection. Urine drug screen positive for marijuana and benzodiazepines. Serum alcohol level was less than 10. Patient admitted under services for medical assisted detox. Physical exam: Vital signs reviewed and stable. General: Nontoxic, no distress and appears stated age. Derm: Skin warm and dry, normal coloration for ethnicity. Head: Atraumatic, normocephalic and symmetric. Eyes: EOM's intact, no lid lag, and anicteric sclera Mouth: no lip lesions, mucus membranes moist Cardiovascular: regular rate and rhythm with normal S1S2, no murmur, positive posterior tibial pulses bilaterally, and cap refill < 2 seconds. Lungs: Respirations even, regular, and unlabored on room air. Lungs CTA bilaterally, no rhonchi, no rales, no wheezing, and no accessory muscle usage. Abdominal: soft, nontender to palpation, no guarding, no appreciable organomeg jenise Ext: ROM intact. No gross muscle atrophy, no edema, no contractures Neuro: Speech clear, face symmetrical and CN II-XII grossly intact with no noted focal neuro deficits Psych: Alert and oriented to person, place, time, and situation. Appropriate and pleasant affect. Assessment and Plan of Care: Alcohol withdraw in active alcoholic Bicytopenia, secondary to above Polysubstance abuse with cocaine and marijuana Hypomagnesemia -Order placed for monitoring of CIWA scores and patient to be medicated with Ativan 0.5 mg every 4 hours as needed for CIWA score of 4-5, Ativan 1 mg every 4 hours for CIWA score of 6-7, Ativan 2 mg every 3 hours CIWA score of 8-9, and Ativan 2 mg every 2 hours forr CIWA score of 10 or greater. -Continuous IV hydration. -Thiamine 100 mg daily, and Multivitamin daily, and Folate 1 mg daily -Seizure, fall, aspiration, and elopement precautions in place. -Urine drug screen positive for marijuana and benzodiazepines -Continued close monitoring of electrolytes and replace as needed. -Telemetry monitoring. -Recommend continued cessation of use of cocaine and returning to [facility] upon discharge. Rule out GI bleed with reported episode of bloody diarrhea -Hold Eliquis and monitor CBC every 6 hours and transfuse if indicated for hemoglobin less than 7. -Continue Protonix 40 mg daily. -General Surgery consulted, appreciate recommendations. Paroxysmal atrial fibrillation -Eliquis held secondary to patient's reports of isolated episode of bloody diarrhea. CODE STATUS: Full code DVT prophylaxis: SCDs Anticipated discharge date: Pending clinical course Anticipated discharge place: Recommend returning to [facility] Patient was seen independently by Nurse Pracitioner. This document was prepared using [employer] dictation software. Please allow for errors in technology officer, while rare they do occur. Pola Cortes NP rendered care for this patient independently, reviewed the findings and plan as documented in the note above and agree with plan. I did not physically speak with or examine the patient on this date. Objective - Vital Signs Vital signs: Vital Signs Temp 98.2 F 11/13/24 05:30 Pulse 122 H 11/13/24 07:57 Resp 20 11/13/24 07:57 BP 123/79 11/13/24 07:57 Pulse Ox 97 11/13/24 07:57 FiO2 Intake & Output 11/12/24 11/13/24 11/13/24 18:59 06:59 18:59 Intake Total 540 118 Output Total 300 Balance 540 -182 Weight 86.183 kg Intake: Oral 540 118 Output: Urine 300 Other: Voiding Method Urinal - Labs CBC & Chem 7: 11/13/24 11:36 11/13/24 01:30 Labs: Abnormal Lab Results - Last 24 Hours (Table) 11/13/24 11/13/24 11/13/24 Range/Units 01:30 01:30 07:08 WBC 2.5 L 2.6 L (3.8-10.6) k/uL RBC 4.05 L 4.12 L (4.30-5.90) m/uL Hgb 11.0 L 11.3 L (13.0-17.5) gm/dL Hct 34.2 L 35.2 L (39.0-53.0) % RDW 19.8 H 19.7 H (11.5-15.5) % Neutrophils # (Manual) 1.23 L (1.3-7.7) k/uL Lymphocytes # 0.7 L (1.0-4.8) k/uL Lymphocytes # (Manual) 0.93 L (1.0-4.8) k/uL Sodium 136 L (137-145) mmol/L BUN 5 L (9-20) mg/dL Glucose 111 H (74-99) mg/dL Calcium 8.3 L (8.4-10.2) mg/dL Magnesium 1.0 L (1.6-2.3) mg/dL Total Protein 6.0 L (6.3-8.2) g/dL Albumin 3.3 L (3.5-5.0) g/dL U Benzodiazepines Scrn (NotDetected) U Marijuana (THC) Screen (NotDetected) 11/13/24 Range/Units 08:23 WBC (3.8-10.6) k/uL RBC (4.30-5.90) m/uL Hgb (13.0-17.5) gm/dL Hct (39.0-53.0) % RDW (11.5-15.5) % Neutrophils # (Manual) (1.3-7.7) k/uL Lymphocytes # (1.0-4.8) k/uL Lymphocytes # (Manual) (1.0-4.8) k/uL Sodium (137-145) mmol/L BUN (9-20) mg/dL Glucose (74-99) mg/dL Calcium (8.4-10.2) mg/dL Magnesium (1.6-2.3) mg/dL Total Protein (6.3-8.2) g/dL Albumin (3.5-5.0) g/dL U Benzodiazepines Scrn Detected H (NotDetected) U Marijuana (THC) Screen Detected H (NotDetected)
[2024-11-13 17:46] LABS: Anisocytosis Slight; Basophils % (A) 0 %; Eosinophils % (A) 0 %; HCT 35.8 % (39.0-53.0); HGB 11.3 gm/dL (13.0-17.5); Hypochromasia Slight; Lymphocytes % (A) 34 %; MCH 27.1 pg (25.0-35.0); MCHC 31.6 g/dL (31.0-37.0); MCV 85.7 fL (80.0-100.0); Mean Platelet Volume 8.3; Monocytes # (A) 0.3 k/uL (0-1.0); Monocytes % (A) 10 %; Neutrophils # (A) 1.4 k/uL (1.3-7.7); Neutrophils % (A) 50 %; Platelet Count 174 k/uL (150-450); RBC 4.17 m/uL (4.30-5.90); RDW 19.7 % (11.5-15.5); WBC 2.8 k/uL (3.8-10.6)
[2024-11-13] MEDS: MIRTAZAPINE 15 MG TAB PO SCH (20:49)
[2024-11-13] MEDS: OLANZapine 10 MG TAB PO SCH (20:49)
--- NOTE | 2024-11-13 21:40 | P.GSCN ---
History of Present Illness Consult date: 11/13/24 History of present illness: Patient is a 59-year-old male with a past medical history significant for alcohol use disorder and recently diagnosed A-fib on Eliquis presents to the emergency department for alcohol withdrawal. He states that his last drink was about 3 days ago, he was previously drinking about 1/5 a day. He has been at [facility] for the last 2 days and he plans to return there after discharge. He has gone through alcohol withdrawals before but states that this is the worst the symptoms have been. He states that yesterday he had a couple episodes of diarrhea. He has a history of bleeding esophageal varices about a year ago. He had an episode of nonbloody emesis yesterday as well. He denies any falls or trauma. He reports severe tremors, nausea, and chills. He denies chest pain, dyspnea, headaches, abdominal pain, and palpitations. Past Medical History Past Medical History: Atrial Fibrillation, Pneumonia, Supraventricular Tachycardia (SVT) Additional Past Medical History / Comment(s): pancreatitis, low blood pressure, ETOH History of Any Multi-Drug Resistant Organisms: None Reported Past Surgical History: Joint Replacement, Orthopedic Surgery Past Anesthesia/Blood Transfusion Reactions: No Reported Reaction Past Psychological History: No Psychological Hx Reported Smoking Status: Never smoker, Second hand smoke exposure Past Alcohol Use History: Abuse, Daily, Heavy Additional Past Alcohol Use History / Comment(s): pt states he drinks a pint to one fifth a day of whiskey, has marijuana gummies sometimes Past Drug Use History: Cocaine, Marijuana Additional Drug Use History / Comment(s): cocaine five years ago - Past Family History Mother Family Medical History: COPD Father Additional Family Medical History / Comment(s): father passed from esophageal cancer Medications and Allergies Home Medications Medication Instructions Recorded Confirmed Type Fenofibrate [Lofibra] 54 mg PO DAILY 10/27/24 11/13/24 History Mirtazapine [Remeron] 15 mg PO HS 10/27/24 11/13/24 History Naltrexone HCl [Revia] 50 mg PO DAILY 10/27/24 11/13/24 History OLANZapine [ZyPREXA] 10 mg PO HS 10/27/24 11/13/24 History Pantoprazole [Protonix] 40 mg PO DAILY 10/27/24 11/13/24 History buPROPion HCL [buPROPion HCL XL] 150 mg PO DAILY 10/27/24 11/13/24 History Apixaban [Eliquis] 5 mg PO DIRECTED 11/13/24 11/13/24 History Metoprolol Tartrate [Lopressor] 50 mg PO DIRECTED 11/13/24 11/13/24 History Testosterone Cypionate 100mg/Ml 100 mg SQ Q14D 11/13/24 11/13/24 History Allergies Allergy/AdvReac Type Severity Reaction Status Date / Time No Known Allergies Allergy Verified 11/13/24 11:11 Surgical - Exam Osteopathic Statement: *. No significant issues noted on an osteopathic structural exam other than those noted in the History and Physical/Consult. Vital Signs Pulse Resp BP Pulse Ox 106 H 22 128/87 95 11/13/24 01:19 11/13/24 01:19 11/13/24 01:19 11/13/24 01:19 gen; nad cv: rrr pul: non labored breathing abd: soft, non distended, non tender to palpation, no guarding or rebound tenderness Results - Labs 11/13/24 17:33 11/13/24 01:30 Abnormal Lab Results - Last 24 Hours (Table) 11/13/24 11/13/24 11/13/24 Range/Units 01:30 01:30 07:08 WBC 2.5 L 2.6 L (3.8-10.6) k/uL RBC 4.05 L 4.12 L (4.30-5.90) m/uL Hgb 11.0 L 11.3 L (13.0-17.5) gm/dL Hct 34.2 L 35.2 L (39.0-53.0) % RDW 19.8 H 19.7 H (11.5-15.5) % Neutrophils # (Manual) 1.23 L (1.3-7.7) k/uL Lymphocytes # 0.7 L (1.0-4.8) k/uL Lymphocytes # (Manual) 0.93 L (1.0-4.8) k/uL Sodium 136 L (137-145) mmol/L BUN 5 L (9-20) mg/dL Glucose 111 H (74-99) mg/dL Calcium 8.3 L (8.4-10.2) mg/dL Magnesium 1.0 L (1.6-2.3) mg/dL Total Protein 6.0 L (6.3-8.2) g/dL Albumin 3.3 L (3.5-5.0) g/dL U Benzodiazepines Scrn (NotDetected) U Marijuana (THC) Screen (NotDetected) 11/13/24 11/13/24 11/13/24 Range/Units 08:23 11:36 17:33 WBC 2.9 L 2.8 L (3.8-10.6) k/uL RBC 4.12 L 4.17 L (4.30-5.90) m/uL Hgb 11.3 L 11.3 L (13.0-17.5) gm/dL Hct 35.2 L 35.8 L (39.0-53.0) % RDW 19.8 H 19.7 H (11.5-15.5) % Neutrophils # (Manual) (1.3-7.7) k/uL Lymphocytes # 0.9 L (1.0-4.8) k/uL Lymphocytes # (Manual) (1.0-4.8) k/uL Sodium (137-145) mmol/L BUN (9-20) mg/dL Glucose (74-99) mg/dL Calcium (8.4-10.2) mg/dL Magnesium (1.6-2.3) mg/dL Total Protein (6.3-8.2) g/dL Albumin (3.5-5.0) g/dL U Benzodiazepines Scrn Detected H (NotDetected) U Marijuana (THC) Screen Detected H (NotDetected) Diabetes panel 11/13/24 Range/Units 01:30 Sodium 136 L (137-145) mmol/L Potassium 3.5 (3.5-5.1) mmol/L Chloride 100 (98-107) mmol/L Carbon Dioxide 25 (22-30) mmol/L BUN 5 L (9-20) mg/dL Creatinine 0.98 (0.66-1.25) mg/dL Glucose 111 H (74-99) mg/dL Calcium 8.3 L (8.4-10.2) mg/dL AST 33 (17-59) U/L ALT 20 (4-49) U/L Alkaline Phosphatase 65 (38-126) U/L Total Protein 6.0 L (6.3-8.2) g/dL Albumin 3.3 L (3.5-5.0) g/dL Calcium panel 11/13/24 Range/Units 01:30 Calcium 8.3 L (8.4-10.2) mg/dL Phosphorus 3.7 (2.5-4.5) mg/dL Albumin 3.3 L (3.5-5.0) g/dL Pituitary panel 11/13/24 Range/Units 01:30 Sodium 136 L (137-145) mmol/L Potassium 3.5 (3.5-5.1) mmol/L Chloride 100 (98-107) mmol/L Carbon Dioxide 25 (22-30) mmol/L BUN 5 L (9-20) mg/dL Creatinine 0.98 (0.66-1.25) mg/dL Glucose 111 H (74-99) mg/dL Calcium 8.3 L (8.4-10.2) mg/dL Adrenal panel 11/13/24 Range/Units 01:30 Sodium 136 L (137-145) mmol/L Potassium 3.5 (3.5-5.1) mmol/L Chloride 100 (98-107) mmol/L Carbon Dioxide 25 (22-30) mmol/L BUN 5 L (9-20) mg/dL Creatinine 0.98 (0.66-1.25) mg/dL Glucose 111 H (74-99) mg/dL Calcium 8.3 L (8.4-10.2) mg/dL Total Bilirubin 1.2 (0.2-1.3) mg/dL AST 33 (17-59) U/L ALT 20 (4-49) U/L Alkaline Phosphatase 65 (38-126) U/L Total Protein 6.0 L (6.3-8.2) g/dL Albumin 3.3 L (3.5-5.0) g/dL Assessment and Plan Assessment: 59 yo male w/ history of previous GI bleed presents w/ acute intoxication discussion w/ patient denies bleeding and states last episode was 1 year ago hgb currently stable no role for emergent endoscopy, follow up outpatient Time with Patient: Less than 30
[2024-11-14 01:34] LABS: Anisocytosis Slight; HCT 33.7 % (39.0-53.0); HGB 11.6 gm/dL (13.0-17.5); Hypochromasia Moderate; MCHC 34.4 g/dL (31.0-37.0); MCV 87.3 fL (80.0-100.0); Platelet Count 143 k/uL (150-450); RBC 3.87 m/uL (4.30-5.90); RDW 19.7 % (11.5-15.5); WBC 2.7 k/uL (3.8-10.6)
[2024-11-14 04:51] LABS: Lymphocytes # (M) 1.05 k/uL (1.0-4.8); Monocytes # (M) 0.19 k/uL (0-1.0); Neutrophils # (M) 1.46 k/uL (1.3-7.7); Neutrophils % (M) 54 %; Nucleated Red Blood Cells 0 /100 WBC (0-0); Total Cells Counted 100
[2024-11-14 06:51] LABS: Anisocytosis Slight; HCT 35.4 % (39.0-53.0); HGB 11.2 gm/dL (13.0-17.5); Hypochromasia Moderate; MCH 27.4 pg (25.0-35.0); MCHC 31.6 g/dL (31.0-37.0); MCV 86.7 fL (80.0-100.0); Mean Platelet Volume 7.3; Platelet Count 153 k/uL (150-450); RBC 4.08 m/uL (4.30-5.90); RDW 19.6 % (11.5-15.5)
[2024-11-14 07:23] LABS: ALT 18 U/L (4-49); AST 28 U/L (17-59); African American GFR (CKD) >90 (>60 ml/min/1.73 sqM); Alkaline Phosphatase 59 U/L (38-126); Anion Gap 5 mmol/L; Blood Urea Nitrogen 5 mg/dL (9-20); Calcium 8.4 mg/dL (8.4-10.2); Carbon Dioxide 26 mmol/L (22-30); Chloride 104 mmol/L (98-107); Glucose 80 mg/dL (74-99); Magnesium 1.7 mg/dL (1.6-2.3); Non-African American GFR(CKD) 87 (>60 ml/min/1.73 sqM); Potassium 3.6 mmol/L (3.5-5.1); Sodium 135 mmol/L (137-145); Total Protein 5.6 g/dL (6.3-8.2)
[2024-11-14] MEDS: MAGNESIUM SULFATE-D5W PMX 1 GM in DEXTROSE/WATER 1 100ML.BAG IVPB SCH (08:59)
[2024-11-14] MEDS: APIXABAN 5 MG TAB PO SCH (08:59)
[2024-11-14] MEDS: THIAMINE 100 MG TAB PO SCH (08:59)
[2024-11-14 11:26] VITALS: RESP 18
--- NOTE | 2024-11-14 15:13 | P.PN ---
Subjective Progress Note Date: 11/14/24 Hospital course: Patient is a 59-year-old male with a past medical history of alcohol abuse, polysubstance abuse with cocaine and marijuana, and atrial fibrillation on anticoagulation with Eliquis. He presented to the emergency department from [facility] with complaints of alcohol withdrawal. Upon arrival to our facility, patient underwent evaluation in the emergency department. Vital signs upon arrival show blood pressure 128/87, heart rate 106, respiratory rate 22, temp 98.2 F, and SpO2 of 95% on room air. EKG completed showing sinus tachycardia at 116 bpm. Labs completed and reviewed. CBC showing bicytopenia with WBC count of 2.5 and hemoglobin of 11.0. Coagulation profile normal findings. BMP showing no significant abnormalities with sodium of 136 and glucose of 111. Magnesium was 1.0. Liver profile normal findings with exception of hypoalbuminemia with albumin of 3.3. Amylase and lipase normal findings. Urinalysis negative for infection. Urine drug screen positive for marijuana and benzodiazepines. Serum alcohol level was less than 10. Patient admitted under services for medical assisted detox. Physical exam: Patient seen and fully evaluated at bedside. He denies any further episodes of bloody diarrhea or stool. Hemoglobin has remained stable throughout hospitalization. General surgery evaluated no needs for endoscopic evaluation at this time recommending outpatient follow-up. Will resume Eliquis this morni ng and continue to monitor hemoglobin levels closely for any signs of GI bleed. Vital signs reviewed and stable. General: Nontoxic, no distress and appears stated age. Derm: Skin warm and dry, normal coloration for ethnicity. Head: Atraumatic, normocephalic and symmetric. Eyes: EOM's intact, no lid lag, and anicteric sclera Mouth: no lip lesions, mucus membranes moist Cardiovascular: regular rate and rhythm with normal S1S2, no murmur, positive posterior tibial pulses bilaterally, and cap refill < 2 seconds. Lungs: Respirations even, regular, and unlabored on room air. Lungs CTA bilate rally, no rhonchi, no rales, no wheezing, and no accessory muscle usage. Abdominal: soft, nontender to palpation, no guarding, no appreciable organomegaly Ext: ROM intact. No gross muscle atrophy, no edema, no contractures Neuro: Speech clear, face symmetrical and CN II-XII grossly intact with no noted focal neuro deficits Psych: Alert and oriented to person, place, time, and situation. Appropriate and pleasant affect. Assessment and Plan of Care: Alcohol withdraw in active alcoholic Bicytopenia, secondary to above Polysubstance abuse with cocaine and marijuana Hypomagnesemia -Continue monitoring of CIWA scores and patient to be medicated with Ativan 0.5 mg every 4 hours as needed for CIWA score of 4-5, Ativan 1 mg every 4 hours for CIWA score of 6-7, Ativan 2 mg every 3 hours CIWA score of 8-9, and Ativan 2 mg every 2 hours forr CIWA score of 10 or greater. -Continuous IV hydration. -Thiamine 100 mg daily, and Multivitamin daily, and Folate 1 mg daily -Seizure, fall, aspiration, and elopement precautions in place. -Urine drug screen positive for marijuana and benzodiazepines -Continued close monitoring of electrolytes and replace as needed. -Telemetry monitoring. -Recommend continued cessation of use of cocaine and returning to [facility] upon discharge. Rule out GI bleed with reported episode of bloody diarrhea, -No further episodes of blood per rectum or reports of melena. Patient was evaluated by general surgery and cleared from their perspective. Hemoglobin has trended and remained stable. -Eliquis resumed this morning, will repeat CBC later this afternoon and again tomorrow morning to monitor for any signs of worsening hemoglobin levels. -Continue Protonix 40 mg daily. Paroxysmal atrial fibrillation -Eliquis 5 mg twice daily resumed at this time. Data and imaging reviewed: -Vital signs reviewed. Blood pressure 115/73, heart rate 110, respiratory rate 16, temp 98.4 F, and SpO2 of 95% on room air. -Morning labs reviewed. CBC showing bicytopenia with WBC count of 3.0 and hemoglobin of 11.2. BMP unremarkable. Blood glucose 80. Magnesium slightly low at 1.7. Liver profile normal findings. Patient has had a total of 18 mg of Ativan over the past 24 hours. Currently CIWA score is 6. Admission order advance to inpatient as patient will require inpatient hospitalization for continuation of medical assisted detox at this time. CODE STATUS: Full code DVT prophylaxis: Eliquis Anticipated discharge date: Pending clinical course Anticipated discharge place: Recommend returning to [facility] Patient was seen independently by Nurse Pracitioner. This document was prepared using [employer] dictation software. Please allow for errors in computer networking instructor adjunct, while rare they do occur. Pola Cortes NP rendered care for this patient independently, reviewed the findings and plan as documented in the note above and agree with plan. I did not physically speak with or examine the patient on this date. Objective - Vital Signs Vital signs: Vital Signs Temp 98.4 F 11/14/24 08:23 Pulse 110 H 11/14/24 08:23 Resp 16 11/14/24 08:23 BP 115/73 11/14/24 08:23 Pulse Ox 95 11/14/24 08:23 FiO2 Intake & Output 11/13/24 11/14/24 11/14/24 18:59 06:59 18:59 Intake Total 476 240 Output Total 2024 145 300 Balance -1549 -1450 -60 Weight 83.5 kg Intake: Oral 476 240 Output: Urine 2024 145 300 Other: Voiding Method Urinal Urinal # Voids 3 1 1 # Bowel Movements 1 1 - Labs CBC & Chem 7: 11/14/24 06:07 11/14/24 06:07 Labs: Abnormal Lab Results - Last 24 Hours (Table) 11/13/24 11/13/24 11/13/24 Range/Units 08:23 11:36 17:33 WBC 2.9 L 2.8 L (3.8-10.6) k/uL RBC 4.12 L 4.17 L (4.30-5.90) m/uL Hgb 11.3 L 11.3 L (13.0-17.5) gm/dL Hct 35.2 L 35.8 L (39.0-53.0) % RDW 19.8 H 19.7 H (11.5-15.5) % Plt Count (150-450) k/uL Lymphocytes # 0.9 L (1.0-4.8) k/uL Sodium (137-145) mmol/L BUN (9-20) mg/dL Total Protein (6.3-8.2) g/dL Albumin (3.5-5.0) g/dL U Benzodiazepines Scrn Detected H (NotDetected) U Marijuana (THC) Screen Detected H (NotDetected) 11/14/24 11/14/24 11/14/24 Range/Units 00:11 06:07 06:07 WBC 2.7 L 3.0 L (3.8-10.6) k/uL RBC 3.87 L 4.08 L (4.30-5.90) m/uL Hgb 11.6 L 11.2 L (13.0-17.5) gm/dL Hct 33.7 L 35.4 L (39.0-53.0) % RDW 19.7 H 19.6 H (11.5-15.5) % Plt Count 143 L (150-450) k/uL Lymphocytes # (1.0-4.8) k/uL Sodium 135 L (137-145) mmol/L BUN 5 L (9-20) mg/dL Total Protein 5.6 L (6.3-8.2) g/dL Albumin 3.0 L (3.5-5.0) g/dL U Benzodiazepines Scrn (NotDetected) U Marijuana (THC) Screen (NotDetected)
[2024-11-14] MEDS: ACETAMINOPHEN TAB 325 MG TAB PO PRN (16:07)
[2024-11-14 18:57] LABS: Anisocytosis Slight; HCT 35.5 % (39.0-53.0); HGB 11.1 gm/dL (13.0-17.5); Hypochromasia Slight; MCHC 31.3 g/dL (31.0-37.0); MCV 86.4 fL (80.0-100.0); Mean Platelet Volume 7.4; Platelet Count 174 k/uL (150-450); RBC 4.11 m/uL (4.30-5.90); RDW 19.7 % (11.5-15.5); WBC 4.4 k/uL (3.8-10.6)
[2024-11-14] MEDS: LORazepam 2 MG/ML INJ IV PRN (20:03)
[2024-11-14] MEDS: traZODone HCL 50 MG TAB PO PRN (21:36)
[2024-11-15 06:40] LABS: Anisocytosis Slight; HCT 33.9 % (39.0-53.0); HGB 10.7 gm/dL (13.0-17.5); Hypochromasia Slight; MCH 27.4 pg (25.0-35.0); MCHC 31.6 g/dL (31.0-37.0); MCV 86.8 fL (80.0-100.0); Mean Platelet Volume 7.6; Platelet Count 151 k/uL (150-450); RDW 19.7 % (11.5-15.5); WBC 3.5 k/uL (3.8-10.6)
[2024-11-15 06:51] LABS: ALT 16 U/L (4-49); AST 23 U/L (17-59); African American GFR (CKD) >90 (>60 ml/min/1.73 sqM); Albumin 3.1 g/dL (3.5-5.0); Alkaline Phosphatase 60 U/L (38-126); Anion Gap 8 mmol/L; Blood Urea Nitrogen 6 mg/dL (9-20); Calcium 8.3 mg/dL (8.4-10.2); Carbon Dioxide 22 mmol/L (22-30); Chloride 105 mmol/L (98-107); Glucose 88 mg/dL (74-99); Magnesium 1.8 mg/dL (1.6-2.3); Non-African American GFR(CKD) 78 (>60 ml/min/1.73 sqM); Potassium 3.7 mmol/L (3.5-5.1); Sodium 135 mmol/L (137-145); Total Bilirubin 0.9 mg/dL (0.2-1.3); Total Protein 5.7 g/dL (6.3-8.2)
[2024-11-15 08:56] VITALS: BP 107/69; PULSE 101; TEMP 98.5
--- NOTE | 2024-11-15 10:18 | P.DS ---
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 -Continuous IV hydration. -Thiamine 100 mg daily, and Multivitamin daily, and Folate 1 mg daily -Seizure, fall, aspiration, and elopement precautions in place. -Urine drug screen positive for marijuana and benzodiazepines -Continued close monitoring of electrolytes and replace as needed. -Telemetry monitoring. -Recommend continued cessation of use of cocaine and returning to [facility] upon discharge. Rule out GI bleed with reported episode of bloody diarrhea, -No further episodes of blood per rectum or reports of melena. Patient was evaluated by general surgery and cleared from their perspective. Hemoglobin has trended and remained stable. -Eliquis resumed this morning, will repeat CBC later this afternoon and again tomorrow morning to monitor for any signs of worsening hemoglobin levels. -Continue Protonix 40 mg daily. Paroxysmal atrial fibrillation -Eliquis 5 mg twice daily resumed at this time. Hospital course: Patient is a 59-year-old male with a past medical history of alcohol abuse, polysubstance abuse with cocaine and marijuana, and atrial fibrillation on anticoagulation with Eliquis. He presented to the emergency department from [facility] with complaints of alcohol withdrawal. Upon arrival to our facility, patient underwent evaluation in the emergency department. Vital signs upon arrival show blood pressure 128/87, heart rate 106, respiratory rate 22, temp 98.2 F, and SpO2 of 95% on room air. EKG completed showing sinus tachycardia at 116 bpm. Labs completed and reviewed. CBC showing bicytopenia with WBC count of 2.5 and hemoglobin of 11.0. Coagulation profile normal findings. BMP showing no significant abnormalities with sodium of 136 and glucose of 111. Magnesium was 1.0. Liver profile normal findings with exception of hypoalbuminemia with albumin of 3.3. Amylase and lipase normal findings. Urinalysis negative for infection. Urine drug screen positive for marijuana and benzodiazepines. Serum alcohol level was less than 10. Patient admitted under services for medical assisted detox. He was evaluated by general surgery secondary to isolated reports of bloody diarrhea. His Eliquis was held and hemoglobin was monitored closely with no further episodes of blood in stool reported since arrival to our facility. General surgery clearing patient from their perspective and Eliquis resumed. Hemoglobin remained stable. Patient's symptoms of withdrawal also improved and he has been requiring less Ativan. Patient reports feeling ready to return to [facility] and is medically optimized for discharge at this time. Patient strongly advised against any further alcohol use and verbalizes understanding stating he will return to [facility]. Physical exam: Vital signs reviewed and stable. General: Nontoxic, no distress and appears stated age. Derm: Skin warm and dry, normal coloration for ethnicity. Head: Atraumatic, normocephalic and symmetric. Eyes: EOM's intact, no lid lag, and anicteric sclera Mouth: no lip lesions, mucus membranes moist Cardiovascular: regular rate and rhythm with normal S1S2, no murmur, positive posterior tibial pulses bilaterally, and cap refill < 2 seconds. Lungs: Respirations even, regular, and unlabored on room air. Lungs CTA bilaterally, no rhonchi, no rales, no wheezing, and no accessory muscle usage. Abdominal: soft, nontender to palpation, no guarding, no appreciable organomegaly Ext: ROM intact. No gross muscle atrophy, no edema, no contractures Neuro: Speech clear, face symmetrical and CN II-XII grossly intact with no noted focal neuro deficits Psych: Alert and oriented to person, place, time, and situation. Appropriate and pleasant affect. A total of 33 minutes of time were spent preparing this complex discharge summary. Pt was discharged on 11/15/2024 at 10:17 AM. Patient was seen independently by Nurse Practitioner. This document was prepared using [employer] dictation software. Please allow for errors in synoptic meteorologist while rare they do occur. Pola Cortes NP rendered care for this patient independently, reviewed the findings and plan as documented in the note above. I did not physically speak with or examine the patient on this date. Patient Condition at Discharge: Stable Plan - Discharge Summary Discharge Rx Participant: Yes New Discharge Prescriptions: Continue Pantoprazole [Protonix] 40 mg PO DAILY OLANZapine [ZyPREXA] 10 mg PO HS Naltrexone HCl [Revia] 50 mg PO DAILY Mirtazapine [Remeron] 15 mg PO HS buPROPion HCL [buPROPion HCL XL] 150 mg PO DAILY Apixaban [Eliquis] 5 mg PO DIRECTED Testosterone Cypionate 100mg/Ml 100 mg SQ Q14D Fenofibrate [Lofibra] 54 mg PO DAILY Changed Metoprolol Tartrate [Lopressor] 50 mg PO TID #0 Discharge Medication List Fenofibrate [Lofibra] 54 mg PO DAILY 10/27/24 [History] Mirtazapine [Remeron] 15 mg PO HS 10/27/24 [History] Naltrexone HCl [Revia] 50 mg PO DAILY 10/27/24 [History] OLANZapine [ZyPREXA] 10 mg PO HS 10/27/24 [History] Pantoprazole [Protonix] 40 mg PO DAILY 10/27/24 [History] buPROPion HCL [buPROPion HCL XL] 150 mg PO DAILY 10/27/24 [History] Apixaban [Eliquis] 5 mg PO DIRECTED 11/13/24 [History] Testosterone Cypionate 100mg/Ml 100 mg SQ Q14D 11/13/24 [History] Metoprolol Tartrate [Lopressor] 50 mg PO TID #0 11/15/24 [Rx] Follow up Appointment(s)/Referral(s): Nabila Tillman MD [Primary Care Provider] - 1-2 days Patient Instructions/Handouts: Abuse of Alcohol (DC), Alcohol Withdrawal (DC) Activity/Diet/Wound Care/Special Instructions: Patient medically optimized and has been cleared to return to [facility]. Please call [facility] to arrange pickup. Activity: As tolerated. Take breaks as needed. Diet: Resume regular diet Special Instructions: Take all of your medications as directed and remember to keep all of your doctor's appointments and follow-up as needed. Thank you for allowing us to participate in your care, it was truly a pleasure having you for our patient!!! Discharge Disposition: HOME SELF-CARE
== END 2024-11-15 11:59 | disposition home or self-care (01) | DRG 774 ==
LOC: EC 01:07 → UNDOADMOB 04:17 → 3SCARD 04:17 → INTOOBSV 04:18 → OBSVTOIN 04:18 → 3SCARD 04:50 → UNDODISOB 11-15 11:59
PROVIDERS: ADMIT Internal Medicine; ATTEND Internal Medicine
DX: F10.239 Alcohol dependence with withdrawal, unspecified (principal); D72.819 Decreased white blood cell count, unspecified; D64.9 Anemia, unspecified; E83.42 Hypomagnesemia; K92.1 Melena; E86.0 Dehydration; I47.10 Supraventricular tachycardia, unspecified; E88.09 Other disorders of plasma-protein metabolism, not elsewhere classified; F12.10 Cannabis abuse, uncomplicated; F14.10 Cocaine abuse, uncomplicated; I48.0 Paroxysmal atrial fibrillation; Z79.01 Long term (current) use of anticoagulants; Z79.899 Other long term (current) drug therapy; Z77.22 Contact with and (suspected) exposure to environmental tobacco smoke (acute) (chronic); Z87.01 Personal history of pneumonia (recurrent); Z96.60 Presence of unspecified orthopedic joint implant
CPT/HCPCS: 36415; 80053; 80306; 80320; 81003; 82150; 83690; 83735; 84100; 85025; 85027; 85610; 96361; 96365; 96372; 96375; 99291